=== PATIENT | male | born 1970 ===

== ENCOUNTER 2016-08-05 01:22 | Inpatient (IN) ==
--- NOTE | 2016-08-05 02:08 | Emergency Department Note ---
Monique Reyes Gwan, am scribing for, and in the presence of, Paco Low MD 01:54. Devante Reyes Robert M, MD, personally performed the services described in this documentation, ascribed by Lolis Amaya in my presence, and it is both accurate and complete . Arrival - Arrival Chief Complaint: Chest Pain Stated Complaint: Chest pain ED Nursing Triage Note: C/C transfer from [facility] ER for left sided chest pain, radiating into left shoulder. Pt was given GI Cocktail, ASA, Morphine, Tylenol. Pt has been pain free since meds were given. Pt denies chest pain at this time. Mode of Arrival: Stretcher Source: Patient, Old Records Reviewed Time Seen by Provider: 08/05/16 01:44 - History of Present Illness HPI Narrative: Patient is a 45 y/o [place] male who presents to the ED via EMS from [facility] ED for further evaluation of left sided chest pain with an onset tonight. Patient is alert and shows no signs of distress. With onset of sxs, pt described his pain as sharp and noted that the pain radiates to his back. He denies any pain when he breaths or with palpation. [facility] records and EMS confirmed that pt was given GI cocktail, ASA, Morphine and Tylenol [employer] F[employer] in ED. While in ED, pt stated that he is no longer in pain. Onset (ago): hour(s) Consistency: constant Severity: moderate Allergies/Adverse Reactions: Allergies Allergy/AdvReac Type Severity Reaction Status Date / Time No Known Allergies Allergy Verified 08/05/16 01:32 Home Medications: Home Medications Medication Instructions Recorded Confirmed Type Glimepiride [Amaryl] 4 mg PO DAILY 12/26/14 12/26/14 History Insulin Detemir [Levemir FlexPen] 25 syringe SUBCUT BEDTIME 12/26/14 12/26/14 History Saxagliptin HCl [Onglyza] 2.5 mg PO DAILY 12/26/14 12/26/14 History Chlorhexidine 4% Soln [Hibiclens] 1 applic TOP DAILY topical 12/30/14 Rx solution Ciprofloxacin Tab [Cipro Tab] 500 mg PO Q12HR #14 tablet 12/30/14 Rx Collagenase Oint [Santyl Oint] 1 applic TOP DAILY ointment 12/30/14 Rx HYDROcodone/ACETAMIN 10-325 [[place] 1 tablet PO Q4H PRN #30 tablet 12/30/14 Rx 10-325] Sodium Hypochlorite 0.25% Irr 1 applic TOP DAILY irrigation 12/30/14 Rx [Dakins 1/2 Strength 0.25% Soln] metroNIDAZOLE TAB [Flagyl Cap/Tab] 500 mg PO TID #20 tablet 12/30/14 Rx Review of System - Review of System 12 point system: reviewed and no additional remarkable complaints except as stated - Review of System Constitutional: Absent: chills, diaphoresis, fever Eyes: Absent: discharge, pain Head/Ears/Nose/Throat: Absent: earache Respiratory: Absent: cough Cardiovascular: Present: as per HPI, chest pain. Absent: palpitations Gastrointestinal: Absent: abdominal pain, nausea, vomiting, diarrhea Genitourinary male: Absent: urgency, dysuria, frequency Musculoskeletal: Absent: arm pain, back pain, lower back pain, leg pain Skin: Absent: rash Medical,Surgical,& Family Hx - Medical History Neurology: History of: Peripheral Neuropathy HEENT: History of: Eye Problem (cataract surgery bilateral) Endocrine: History of: Diabetes Mellitus (IDDM), Diabetes Mellitus (NIDDM), Dyslipidemia Respiratory: No history of: Obstructive Sleep Apnea Hematology: History of: Blood Disorders (chronic thrombocytopenia) Other: History of: Skin Problems (detailed man drained an abscess on his hip for lower abdomen sometime in ) - Surgical History Orthopedic Surgeries: Surgical HX of;: Orthopedic Surgery (hip abscess ), Total Knee Replacement (knee scope bilateral) - Family History Family History: Reports;: Family Cancer (grandmother-breast,), Family Diabetes ( DAD), Family Stroke (GRANDMOTHER, SISTER) Denies;: Family Heart Disease, Family Hypertension - Social History Smoking Status: Never smoker Frequency of Alcohol Use: None Type of Drug Use: None Exam Vital Signs: Vital Signs Temperature 97.7 F 08/05/16 01:22 Pulse Rate 80 08/05/16 01:22 Respiratory Rate 16 08/05/16 01:39 Blood Pressure 119/66 08/05/16 01:22 O2 Sat by Pulse Oximetry 99 08/05/16 01:22 - General General appearance: alert, in no apparent distress, obese - Head Head exam: Present: atraumatic, normocephalic - Eye Eye exam: Present: normal appearance, PERRL, EOMI - ENT ENT exam: Present: normal oropharynx, mucous membranes moist, TM's normal bilaterally, normal external ear exam - Neck Neck exam: Present: full ROM, trachea midline. Absent: tenderness, meningismus - Chest Chest inspection: Present: symmetric chest wall rise. Absent: tenderness - Respiratory Respiratory exam: Present: normal lung sounds bilaterally. Absent: respiratory distress - Cardiovascular Cardiovascular exam: Present: regular rate, normal rhythm, normal heart sounds. Absent: murmur, rubs, gallop - Abdominal Exam Abdominal exam: Present: soft, normal bowel sounds - Extremities Exam Extremities exam: Present: full ROM, tenderness. Absent: calf tenderness - Back Exam Back exam: Present: full ROM. Absent: tenderness - Neurological Exam Neurological exam: Present: alert, oriented X3, CN II-XII intact. Absent: motor sensory deficit - Psychiatric Psychiatric exam: Present: normal affect, normal mood - Skin Skin exam: Present: warm, dry, intact, normal color, other (patient was warm to touch) Course - Reevaluation(s) Reevaluation #1: Note is made that the patient's troponin slightly elevated since visit at [facility]. His pain has been completely controlled thus far. Time: 02:30 - Consultations Consultation #1: Dr. Acuna will admit the patient. Time: 02:31 Results - Labs Lab Results: I have reviewed the patients labs Labs: Total Creatine Kinase 217 U/L (39-308) 08/05/16 01:50 CK-MB (CK-2) 1.0 U/L (0.5-3.6) 08/05/16 01:50 Troponin I 0.046 NG/ML (0.00-0.045) H 08/05/16 01:50 Disposition Clinical Impression: Non-STEMI (non-ST elevated myocardial infarction), NIDDM Case discussed with: patient Disposition: Still a Patient Condition: Stable Time of Disposition: 02:32
[2016-08-05 02:23] LABS: Troponin I Only 0.046 NG/ML (0.00-0.045)
[2016-08-05] MEDS ORDERED: guaiFENesin/DM ER 600-30 MG TABLET PO PRN (02:32)
[2016-08-05] MEDS ORDERED: MAGNESIUM SULF RIDER 4 GM in PREMIX 1 EACH IV PRN (02:32)
[2016-08-05] MEDS ORDERED: DOCUSATE SODIUM 100 MG CAPSULE PO PRN (02:32)
[2016-08-05] MEDS ORDERED: MORPHINE 2 MG/1 ML SYRINGE IV PRN (02:32)
[2016-08-05] MEDS ORDERED: MAGNESIUM SULF RIDER 2 GM in PREMIX 1 EACH IV PRN (02:32)
[2016-08-05] MEDS ORDERED: ONDANSETRON 4 MG/2 ML VIAL IV PRN (02:32)
[2016-08-05] MEDS ORDERED: ZALEPLON 5 MG CAPSULE PO PRN (02:32)
[2016-08-05] MEDS ORDERED: DEXTROSE 50% 25 GM/50 ML VIAL IV PRN (02:34)
[2016-08-05] MEDS ORDERED: GLUCAGON 1 MG VIAL IM PRN (02:34)
[2016-08-05] MEDS ORDERED: SODIUM CHLORIDE 0.9% 1,000 ML IV SCH (03:00)
[2016-08-05] MEDS: ENOXAPARIN 100 MG/ML SYRINGE SUBCUT SCH ×2 (04:09→15:00)
[2016-08-05] MEDS: NITROGLYCERIN 2% OINT 1 INCH/GM PACK TOP SCH ×3 (06:16→17:57)
[2016-08-05 06:30] LABS: Troponin I Only 0.041 NG/ML (0.00-0.045)
[2016-08-05] MEDS: INSULIN LISPRO 100 UNIT/ML SUBCUT SCH ×3 (06:38→17:37)
--- NOTE | 2016-08-05 10:41 | EKG Report ---
Stationary ECG Study [facility] ER Test Date: 08/05/2016 1:31:29 AM Pat Name: TERRELL SANTILLAN Department: Room: 286 Gender: M Technical Sales Support Specialist: : 1970 Requested by: Paco Low Order Number: [id number] Marciano MD: MILLI GUILLAUME Intervals [place] Rate: 78 P: 179 PA: 177 QRS: 129 QRSD: 115 T: 121 QT: 381 QTc: 414 Interpretive Statements SINUS RHYTHM ARM LEADS REVERSED ATYPICAL ECG INTERPRETATION BASED ON A DEFAULT AGE OF 40 YEARS Electronically Signed On 08-05-16 16:32:12 CDT by MILLI GUILLAUME [email or web address]
--- NOTE | 2016-08-05 11:14 | EKG Report ---
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
--- NOTE | 2016-08-05 11:41 | Cardiology History & Physical ---
Assessment and Plan (1) Troponin level elevated Status: Acute Assessment and plan: Patient presents with an elevated troponin which is equivocal. He does have what appears to be a cellulitis of his right calf and obviously a concern would be that this is related to DVT. He also is complaining of some point tenderness in the left anterior chest which is not anginal and another concern would be that he is at risk for pulmonary thromboembolic disease. He is on full dose Lovenox anticoagulation. Current Visit: Yes (2) Diabetes mellitus Status: Acute Current Visit: No History of Present Illness History of present illness: Mr. Whiting is a 45 year old male who has a history of diabetes and has had problems with infections of his left foot. He says probably 4 days ago he began to notice some swelling of his right calf and today he is got increasing warmth and what appears to be a cellulitis versus a DVT of his right leg. We are going to work that up. He also complained of some chest discomfort which was not typical for angina. His troponins are elevated and we are going to get a look at that as well. His EKG is unrevealing and the concern obviously is that he has had a pulmonary embolus. He is fully anticoagulated on Lovenox intravenously at this point and we are going to review a ultrasound of the lower extremity and a CT scan of his chest. Home Medications Medication Instructions Recorded Confirmed Type Glimepiride [Amaryl] 4 mg PO DAILY 12/26/14 12/26/14 History Insulin Detemir [Levemir FlexPen] 25 syringe SUBCUT BEDTIME 12/26/14 12/26/14 History Saxagliptin HCl [Onglyza] 2.5 mg PO DAILY 12/26/14 12/26/14 History Chlorhexidine 4% Soln [Hibiclens] 1 applic TOP DAILY topical 12/30/14 Rx solution Ciprofloxacin Tab [Cipro Tab] 500 mg PO Q12HR #14 tablet 12/30/14 Rx Collagenase Oint [Santyl Oint] 1 applic TOP DAILY ointment 12/30/14 Rx HYDROcodone/ACETAMIN 10-325 [[place] 1 tablet PO Q4H PRN #30 tablet 12/30/14 Rx 10-325] Sodium Hypochlorite 0.25% Irr 1 applic TOP DAILY irrigation 12/30/14 Rx [Dakins 1/2 Strength 0.25% Soln] metroNIDAZOLE TAB [Flagyl Cap/Tab] 500 mg PO TID #20 tablet 12/30/14 Rx Allergies Allergy/AdvReac Type Severity Reaction Status Date / Time No Known Allergies Allergy Verified 08/05/16 01:32 Medical,Surgical,& Family Hx - Medical History Neurology: History of: Peripheral Neuropathy HEENT: History of: Eye Problem (cataract surgery bilateral) Endocrine: History of: Diabetes Mellitus (NIDDM), Dyslipidemia No history of: Diabetes Mellitus (IDDM) Respiratory: No history of: Obstructive Sleep Apnea Hematology: History of: Blood Disorders (chronic thrombocytopenia) Other: History of: Skin Problems (detailed man drained an abscess on his hip for lower abdomen sometime in ) - Surgical History Orthopedic Surgeries: Surgical HX of;: Orthopedic Surgery (hip abscess ), Total Knee Replacement (knee scope bilateral) - Family History Family History: Reports;: Family Cancer (grandmother-breast,), Family Diabetes ( DAD), Family Stroke (GRANDMOTHER, SISTER) Denies;: Family Heart Disease, Family Hypertension - Social History Smoking Status: Never smoker Frequency of Alcohol Use: None Type of Drug Use: None Cardiology Physical Exam - Constitutional Vitals: Vital Signs Temp Pulse Resp BP Pulse Ox 98.5 F 64 18 111/55 98 08/05/16 08:28 08/05/16 08:28 08/05/16 08:28 08/05/16 08:28 08/05/16 08:28 Intake and Output 08/04/16 08/05/16 08/05/16 23:59 07:59 15:59 Output Total 0 / 0 Balance 0 / 0 Output: Urine 0 / 0 Other: # Bowel Movements 0 Weight 124.965 kg Patient Weight 08/05/16 23:59 Weight 124.965 kg Exam: Physical examination: General: The patient is awake and alert and oriented -3. Mood and affect are normal. HEENT: Normocephalic, sclera are clear there are no lid xanthelasmas noted. Oral mucosa is free of cyanosis or pallor. Neck: The neck is supple without JVD. Carotid upstrokes are normal volume and amplitude. There is no audible bruit. There is no palpable thyroid. Trachea is midline. Chest: Lungs: The patient is comfortable at rest without intercostal retractions or abdominal breathing. There are no adventitial sounds rales rubs rhonchi or wheezes noted. Cardiovascular: The PMI is nondisplaced. No palpable thrill S3 or S4. There is a regular rate and rhythm with no murmur rub or gallop noted. Dorsalis pedis posterior tibial and femoral pulses are 2+ and equal bilaterally. Abdomen: Abdomen is soft and nontender with normal active bowel sounds. There is no palpable mass or organomegaly noted. There is no midline bruit. Extremities exam: There is marked discoloration of the right calf with what appears to be a cellulitis by my evaluation. Peripheral pulses are in the 0-1+ range the dorsalis pedis posterior tibial and 1+ the femorals bilaterally. There is no cyanosis or clubbing noted. Skin: Skin is warm and dry without ecchymosis or urticaria or skin rash. There are no palpable nodules. Musculoskeletal: There is no kyphosis or scoliosis noted. Result/EKG - Labs Labs: Laboratory Results - last 24 hr 08/05/16 08/05/16 04:51 06:19 POC Glucose 199 H Total Creatine Kinase 206 CK-MB (CK-2) 1.3 Troponin I 0.041
--- NOTE | 2016-08-05 12:19 | Ultrasound Report ---
US venous doppler LE RT Indication: Redness and swelling of the right lower extremity. Comparison: None. Technique: Using transcutaneous probe, color Doppler, spectral Doppler, and grayscale images prior to and following compression were obtained of the right lower extremity. Ultrasound images were captured and stored. Interrogated venous structures include the right common femoral vein, superficial femoral vein (proximal, mid, and distal), and popliteal vein. Findings: There is no evidence of thrombus within the interrogated right lower extremity venous structures. Spectral flow and color flow are present within the interrogated venous segments. Inguinal lymph nodes are noted within the right inguinal region. Significance of these lymph nodes is uncertain. These nodes are minimally enlarged and could reflect evidence of cellulitis. Impression: 1. No evidence of venous thrombosis. 2. Enlarged right inguinal lymph nodes could reflect reactive etiology provided redness of the leg. 08/05/2016 12:12 PM PROCEDURE INTERPRETED AT [facility] DEPARTMENT OF RADIOLOGY Final Report Signed by: Dr. Librado Low
[2016-08-05 12:49] LABS: Troponin I Only 0.031 NG/ML (0.00-0.045)
--- NOTE | 2016-08-05 12:54 | CT Report ---
CT chest PE study Indication: Chest pain. Shortness of breath. Comparison: None. Technique: CT of the chest was performed following the administration of intravenous contrast. In addition to multiple contiguous axial source images obtained from the thoracic inlet through the upper abdomen, coronal and sagittal MPR series were performed as were thin slab MIP reconstructions in the coronal and sagittal plane. The CT examination was performed using one or more of the following dose reduction techniques: Automatic exposure control, adjustment of the mA and kV according to patient size, or iterative reconstruction techniques. Findings: Suboptimal opacification of the pulmonary artery is present. The main pulmonary artery average is 201 Hounsfield units. There are no filling defects suggested to the level of the segmental branches. Subsegmental branches cannot be completely evaluated. Heart size is borderline. The aorta demonstrates normal 3 vessel arch anatomy. No adenopathy is noted within the axilla, rose, or mediastinum. The esophagus is unremarkable. Dependent atelectatic changes are noted bilaterally within the lower lobes. Lungs otherwise are clear. No pleural effusions or endobronchial lesions are demonstrated. The imaged portion of the upper abdomen, imaged bony structure, soft tissues and musculature of the chest wall, and visualized portion of the lower neck and thyroid are unremarkable. Impression: 1. Moderate dependent atelectatic changes are present bilaterally. 2. No filling defects are present within the pulmonary arteries to the level of the subsegmental branches. Subsegmental branches cannot be completely evaluated. 3. No specific etiology of chest pain is suggested. 08/05/2016 12:49 PM PROCEDURE INTERPRETED AT [facility] DEPARTMENT OF RADIOLOGY Final Report Signed by: Dr. Librado Low
[2016-08-05] MEDS: PANTOPRAZOLE 40 MG TABLET PO SCH (12:59)
[2016-08-05 13:46] LABS: Albumin 2.7 G/DL (3.4-5.0); Calcium 7.2 MG/DL (8.5-10.1); Osmolality,Calculated 298.3 MOS/KG (273-304); Risk Ratio 1.87; Total Protein 6.4 G/DL (6.4-8.3); VLDL CHOLESTEROL 16.4 MG/DL
[2016-08-05 13:55] LABS: Basophils % 0.2 % (0.0-0.8); Eosinophils # 0.4 10*3/uL (0.0-0.87); Eosinophils % 4.3 % (0.00-10.9); Hematocrit 26.9 VOL% (42.0-52.0); Hemoglobin 9.1 GM/DL (14.0-18.0); Immature Granulocytes % 0.4 %; Immature Granulocytes Absolute 0.03 #; Lymphocytes # 1.3 10*3/uL (1.4-4.0); Lymphocytes % 15.3 % (21.2-54.2); Mean Corpuscular HGB Conc 33.8 GM/DL (32-36); Mean Corpuscular Hemoglobin 29 PG (27-34); Mean Corpuscular Volume 86.5 FL (87-102); Mean Platelet Volume 14.3 FL (9.6-12.0); Monocytes # 0.6 10*3/uL (0.11-0.8); Monocytes % 7.4 % (1.7-12.7); Neutrophils # 6.2 10*3/uL (1.4-7.4); Neutrophils % 72.4 % (38.7-73.9); Red Blood Count 3.11 MC/CUMM (3.8-5.5); Red Cell Distribution Width 14.6 % (9.3-17.3); White Blood Count 8.6 T/CUMM (4-12)
[2016-08-05 13:57] LABS: Platelet Count 39 T/CUMM (130-400)
[2016-08-05 19:19] LABS: Troponin I Only 0.029 NG/ML (0.00-0.045)
[2016-08-06] MEDS: INSULIN LISPRO 100 UNIT/ML SUBCUT SCH ×4 (00:44→17:16)
[2016-08-06] MEDS: NITROGLYCERIN 2% OINT 1 INCH/GM PACK TOP SCH ×4 (00:45→17:17)
[2016-08-06 05:51] LABS: Blood Urea Nitrogen 37 MG/DL (7-18); Calcium 7.6 MG/DL (8.5-10.1); Glucose 130 MG/DL (74-106); Osmolality,Calculated 293.1 MOS/KG (273-304); Potassium 4.5 MMOL/L (3.5-5.1); Sodium 142 MMOL/L (136-145)
[2016-08-06] MEDS: PANTOPRAZOLE 40 MG TABLET PO SCH (08:40)
--- NOTE | 2016-08-06 08:57 | General Surgery Consult Note ---
Assessment and Plan (1) Cellulitis Status: Acute Assessment and plan: The patient has cellulitis of his right leg. There is no abscess. This should respond to antibiotics and elevation of the leg. Please call back with any further questions. I have ordered clindamycin and elevation of the leg. The patient can be transitioned to p.o. clindamycin prior to discharge. He should get a workup as an outpatient for venous insufficiency to evaluate his bowels for reflux but the management in the meantime should just be antibiotics and elevation. Please call back with any further questions or if he does not respond to this therapy. Current Visit: Yes History of Present Illness Chief complaint: Right leg swelling History of present illness: Mr. Whiting is a 45 year old male admitted with chest pain and found to have a warm swollen right lower extremity. The patient states that this is nontender. He is afebrile. His white blood cell count is normal. He has severe thrombocytopenia with platelet count yesterday of 39,000. His duplex ultrasound was negative for DVT. Home Medications Medication Instructions Recorded Confirmed Type Glimepiride [Amaryl] 4 mg PO DAILY 12/26/14 08/05/16 History Saxagliptin HCl [Onglyza] 2.5 mg PO DAILY 12/26/14 08/05/16 History Aspirin [Aspirin EC] 81 mg PO DAILY 08/05/16 08/05/16 History Simvastatin 20 mg PO BEDTIME 08/05/16 08/05/16 History Allergies Allergy/AdvReac Type Severity Reaction Status Date / Time No Known Allergies Allergy Verified 08/05/16 01:32 Medical,Surgical,& Family Hx - Medical History Neurology: History of: Peripheral Neuropathy HEENT: History of: Eye Problem (cataract surgery bilateral) Endocrine: History of: Diabetes Mellitus (NIDDM), Dyslipidemia No history of: Diabetes Mellitus (IDDM) Respiratory: No history of: Obstructive Sleep Apnea Hematology: History of: Blood Disorders (chronic thrombocytopenia) Other: History of: Skin Problems (detailed man drained an abscess on his hip for lower abdomen sometime in ) - Surgical History Orthopedic Surgeries: Surgical HX of;: Orthopedic Surgery (hip abscess ), Total Knee Replacement (knee scope bilateral) - Family History Family History: Reports;: Family Cancer (grandmother-breast,), Family Diabetes ( DAD), Family Stroke (GRANDMOTHER, SISTER) Denies;: Family Heart Disease, Family Hypertension - Social History Smoking Status: Never smoker Frequency of Alcohol Use: None Type of Drug Use: None - Constitutional Constitutional: Present: as per HPI - EENT Nose, mouth and throat: Present: as per HPI - Cardiovascular Cardiovascular: Present: as per HPI - Respiratory Respiratory: Present: as per HPI - Gastrointestinal Gastrointestinal: Present: as per HPI - Genitourinary Genitourinary: Present: as per HPI - Musculoskeletal Musculoskeletal: Present: as per HPI - Neurological Neurological: Present: as per HPI - Endocrine Endocrine: Present: as per HPI Hematologic/Lymphatic: Present: as per HPI Exam - Constitutional Vitals: Period Temp Pulse Resp BP Sys/[place] Pulse Ox Last 24 Hr 99.2 F-99.5 F 69-87 18-20 110-155/56-90 94-98 General appearance: no acute distress, morbidly obese - Head Head exam: Present: normal inspection, normocephalic - Eye Eye exam: Present: EOMI Pupils: Present: LONI - ENT ENT exam: Present: normal exam Mouth exam: Present: normal external inspection, normal voice - Neck Neck exam: Present: normal inspection, trachea midline - Respiratory Respiratory exam: Present: clear to auscultation bilaterally. Absent: accessory muscle use, chest wall tenderness - Cardiovascular Cardiovascular exam: Present: RRR. Absent: systolic murmur, tachycardia - GI/Abdominal GI/Abdominal exam: Present: soft. Absent: tenderness, rebound - Extremities Exam Extremities exam: Present: other (The patient has changes of chronic venous stasis in both lower extremities with hyperpigmentation of the medial side of his malleolus area on his ankles. His right leg a little bit more swollen and glossy and is warm to the touch. It was not elevated overnight.) - Back Exam Back exam: Present: normal inspection - Neurological Exam Neurological exam: Present: alert, oriented X3 Speech: Present: normal - Skin Skin exam: Present: normal color, warm Results - Labs CBC & BMP: 08/05/16 13:47 08/06/16 04:28
[2016-08-06] MEDS: CLINDAMYCIN INJ 600 MG in PREMIX 1 EACH IV SCH ×2 (09:16→17:08)
--- NOTE | 2016-08-06 09:36 | EKG Report ---
Stationary ECG Study [facility] Test Date: 08/05/2016 6:42:26 PM Pat Name: TERRELL SANTILLAN Department: Room: 286 Gender: M Gym Manager: HARJIT CULL GRADER : 1970 Requested by: Paco Low Order Number: [id number] Marciano MD: MILLI GUILLAUME Intervals [place] Rate: 85 P: 11 FL: 160 QRS: 68 QRSD: 113 T: 72 QT: 352 QTc: 394 Interpretive Statements SINUS RHYTHM MODERATE INTRAVENTRICULAR CONDUCTION DELAY Electronically Signed On 08-07-16 06:56:03 CDT by MILLI GUILLAUME [id number]
[2016-08-06 10:07] LABS: Basophils % 0.1 % (0.0-0.8); Eosinophils # 0.4 10*3/uL (0.0-0.87); Hematocrit 24.8 VOL% (42.0-52.0); Hemoglobin 8.1 GM/DL (14.0-18.0); Immature Granulocytes % 0.4 %; Immature Granulocytes Absolute 0.03 #; Lymphocytes # 1.1 10*3/uL (1.4-4.0); Lymphocytes % 13.9 % (21.2-54.2); Mean Corpuscular HGB Conc 32.7 GM/DL (32-36); Mean Corpuscular Hemoglobin 29 PG (27-34); Mean Corpuscular Volume 87.9 FL (87-102); Monocytes # 0.6 10*3/uL (0.11-0.8); Monocytes % 7.3 % (1.7-12.7); Neutrophils # 5.6 10*3/uL (1.4-7.4); Neutrophils % 73.3 % (38.7-73.9); Red Blood Count 2.82 MC/CUMM (3.8-5.5); Red Cell Distribution Width 14.3 % (9.3-17.3); White Blood Count 7.6 T/CUMM (4-12)
[2016-08-06 10:12] LABS: Platelet Count 36 T/CUMM (130-400)
[2016-08-06 10:18] LABS: Platelet Estimate Decreased
--- NOTE | 2016-08-06 11:16 | Cardiology Progress Note ---
Assessment and Plan (1) Troponin level elevated Status: Acute Assessment and plan: Patient presents with an elevated troponin which is equivocal. He does have what appears to be a cellulitis of his right calf and obviously a concern would be that this is related to DVT. He also is complaining of some point tenderness in the left anterior chest which is not anginal and another concern would be that he is at risk for pulmonary thromboembolic disease. He is on full dose Lovenox anticoagulation. Patient's troponin I think is not related to any cardiac event. He has a cellulitis and atypical chest pain will need screening once his cellulitis is cleared. Current Visit: Yes (2) Diabetes mellitus Status: Acute Current Visit: No (3) Thrombocytopenia Status: Acute Assessment and plan: This patient has thrombocytopenia and with a history of Lovenox to last the hematology specialty sales consultant to review Current Visit: Yes Cardiology - PN: Subj Interval history: This patient presented with a swelling of his right leg and atypical chest pain. He did not have evidence of DVT or evidence of a pulmonary embolus. His pain was atypical for angina. He is a bad diabetic and has had surgery on his left lower extremity now with cellulitis of his right lower extremity treated by the surgeons. He did have some decrease in his platelet count which is questionably related to the Lovenox and he was put on in the emergency room. This is been discontinued and his platelet count continues low and I am going to ask the embedded developer to review that. Exam (Progress Note) - Constitutional Vitals: Period Temp Pulse Resp BP Sys/De La Rosa Pulse Ox Last 24 Hr 99.2 F-99.5 F 69-87 18-20 110-155/56-90 94-98 Exam: General:no acute distress. alert and oriented, mood and affect are normal HEENT: no new lesions, sclerae are clear, mouth and pharynx benign Neck: supple, trachea midline, no JVD noted Lungs: no rales ronchi or wheeze is noted. pt comfortable without accesory muscle use to assist with breathing CV: RRR no murmur rub or gallop is noted. Abd: soft and nontender, BSNA, no masses. Ext: no cyanosis, clubbing or edema. Swelling and tenderness of the right lower extremity at the calf. There is some skin discoloration but no discrete abscess is noted. Neuro: grossly intact without focal neurologic deficit. Result/EKG - Labs CBC & BMP: 08/06/16 09:40 08/06/16 04:28 Labs: Laboratory Results - last 24 hr 08/05/16 08/05/16 08/05/16 04:50 11:15 11:26 WBC RBC Hgb Hct MCV MCH MCHC RDW Plt Count MPV Neut % (Auto) Lymph % (Auto) [place] % (Auto) Eos % (Auto) Baso % (Auto) Neut # (Auto) Lymph # (Auto) [place] # (Auto) Eos # (Auto) Baso # (Auto) Immature Gran % Nucleated RBC % Immature Gran # Nucleated RBCs # Platelet Estimate Morphology Comment D-Dimer, Quantitative Sodium 141 Potassium 4.0 Chloride 111 H Carbon Dioxide 18 L Anion Gap 16.0 H BUN 46 H Creatinine 2.60 H GFR Calculation 39 BUN/Creatinine Ratio 17.00 Glucose 208 H POC Glucose 121 H Calculated Osmolality 298.3 Calcium 7.2 L Magnesium Total Bilirubin 1.00 AST 24 ALT 26 Alkaline Phosphatase 149 H Total Creatine Kinase 169 CK-MB (CK-2) 1.6 Troponin I 0.031 Total Protein 6.4 Albumin 2.7 L Globulin 3.7 H Albumin/Globulin Ratio 0.7 L Triglycerides 82 Cholesterol 86 LDL Cholesterol 34.0 VLDL Cholesterol 16.4 HDL Cholesterol 46 Heart Disease Risk Ratio 1.87 08/05/16 08/05/16 08/05/16 13:46 13:47 16:25 WBC 8.6 RBC 3.11 L Hgb 9.1 L Hct 26.9 L MCV 86.5 L MCH 29 MCHC 33.8 RDW 14.6 Plt Count 39 L* MPV 14.3 H Neut % (Auto) 72.4 Lymph % (Auto) 15.3 L [place] % (Auto) 7.4 Eos % (Auto) 4.3 Baso % (Auto) 0.2 Neut # (Auto) 6.2 Lymph # (Auto) 1.3 L [place] # (Auto) 0.6 Eos # (Auto) 0.4 Baso # (Auto) 0.0 Immature Gran % 0.4 Nucleated RBC % 0.0 Immature Gran # 0.03 Nucleated RBCs # 0.00 Platelet Estimate Morphology Comment D-Dimer, Quantitative 1.1 Sodium Potassium Chloride Carbon Dioxide Anion Gap BUN Creatinine GFR Calculation BUN/Creatinine Ratio Glucose POC Glucose 133 H Calculated Osmolality Calcium Magnesium Total Bilirubin AST ALT Alkaline Phosphatase Total Creatine Kinase CK-MB (CK-2) Troponin I Total Protein Albumin Globulin Albumin/Globulin Ratio Triglycerides Cholesterol LDL Cholesterol VLDL Cholesterol HDL Cholesterol Heart Disease Risk Ratio 08/05/16 08/06/16 08/06/16 18:34 00:13 04:28 WBC RBC Hgb Hct MCV MCH MCHC RDW Plt Count MPV Neut % (Auto) Lymph % (Auto) [place] % (Auto) Eos % (Auto) Baso % (Auto) Neut # (Auto) Lymph # (Auto) [place] # (Auto) Eos # (Auto) Baso # (Auto) Immature Gran % Nucleated RBC % Immature Gran # Nucleated RBCs # Platelet Estimate Morphology Comment D-Dimer, Quantitative Sodium 142 Potassium 4.5 Chloride 114 H Carbon Dioxide 21 Anion Gap 11.5 BUN 37 H Creatinine 1.60 H GFR Calculation 69 BUN/Creatinine Ratio 23.00 H Glucose 130 H POC Glucose 167 H Calculated Osmolality 293.1 Calcium 7.6 L Magnesium 2.0 Total Bilirubin AST ALT Alkaline Phosphatase Total Creatine Kinase 164 116 D CK-MB (CK-2) 1.7 < 1.0 Troponin I 0.029 0.040 Total Protein Albumin Globulin Albumin/Globulin Ratio Triglycerides Cholesterol LDL Cholesterol VLDL Cholesterol HDL Cholesterol Heart Disease Risk Ratio 08/06/16 08/06/16 06:11 09:40 WBC 7.6 RBC 2.82 L Hgb 8.1 L Hct 24.8 L MCV 87.9 MCH 29 MCHC 32.7 RDW 14.3 Plt Count 36 L* MPV Neut % (Auto) 73.3 Lymph % (Auto) 13.9 L [place] % (Auto) 7.3 Eos % (Auto) 5.0 Baso % (Auto) 0.1 Neut # (Auto) 5.6 Lymph # (Auto) 1.1 L [place] # (Auto) 0.6 Eos # (Auto) 0.4 Baso # (Auto) 0.0 Immature Gran % 0.4 Nucleated RBC % 0.0 Immature Gran # 0.03 Nucleated RBCs # 0.00 Platelet Estimate Decreased Morphology Comment D-Dimer, Quantitative Sodium Potassium Chloride Carbon Dioxide Anion Gap BUN Creatinine GFR Calculation BUN/Creatinine Ratio Glucose POC Glucose 142 H Calculated Osmolality Calcium Magnesium Total Bilirubin AST ALT Alkaline Phosphatase Total Creatine Kinase CK-MB (CK-2) Troponin I Total Protein Albumin Globulin Albumin/Globulin Ratio Triglycerides Cholesterol LDL Cholesterol VLDL Cholesterol HDL Cholesterol Heart Disease Risk Ratio
--- NOTE | 2016-08-06 15:14 | Oncology Consult Note ---
History of Present Illness Chief complaint: Thrombocytopenia History of present illness: Mr. Whiting is a 45 year old male This patient has a long history of pancytopenia. He tells me that he was evaluated here several years ago, possibly over 10 years ago for low blood counts. In addition, he tells me that he is now being followed at [facility] in [place] for low blood counts. He does not remember the physician's name and he missed the last appointment. He relates that he has been told that he had stable moderately low blood counts and that as long as they did not change, according to his doctors at [facility], he would just need to be followed. In addition, he evidently has a paper chart here if we can obtain it. I note that on December 28, 2014, the patient had a white cell count 5600 with a hemoglobin of 10.2 and a platelet count at that time of 46,000 with a high mean platelet volume. On August 05, 2016 the patient had a platelet count of 39,000 and his mean platelet volume is 14.3 which is significantly elevated. This is a good thing since it is the total platelet volume that determines bleeding risk as much as the actual number of platelets that the patient has a circulation. 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 I am requesting that the be retrieved on him here I am also requesting records from [facility] as well. He was admitted for chest pain that is atypical for coronary artery disease. He has been noted to have abnormalities of his legs that are suggestive of DVT. He was started on Lovenox initially in the emergency room but it has been stopped. Past medical history: Allergies: No known allergies He is a sketchy historian. He tells me that he has undergone bronchoscopy at [facility] in [place] but I am not sure why. He has a history of diabetes mellitus. He is currently on insulin as treatment for his diabetes but does not list any other home medications. Family history is negative for blood dyscrasias or bleeding disorders or low blood counts as far as he is aware. Social history: He tells me that he drank at one time but no longer drinks alcohol. He also gives me a remote history of cigarette smoking. Review of systems is of questionable significance because he does not remember many of the details. This includes an apparent workup relatively recently, a couple of years ago that involved pulmonary workup. His review of systems is positive for peripheral neuropathy as well as cataracts for which she has had surgery and also positive for obstructive sleep apnea. In addition he has a history of an abscess of the lower abdomen or pelvis, apparently the hip. He also has had bilateral total knee replacements. Physical examination: General: The patient appears somewhat chronically ill but is in no acute distress. Eyes: Bilateral cataract surgery. Normal lids and conjunctivae. ENT: Poor dentition. Oral mucosa and pharynx are normal. Hearing is normal. Neck: No masses. Thyroid is normal. Lungs: The chest moves symmetrically with respiration. I hear no rubs, rales or rhonchi. Cardiovascular: I cannot appreciate any murmurs. His heart rhythm is regular without gallop or rub. There is no jugular venous distention. Abdomen: There are no abdominal masses or organomegaly and no distention or ascites. Musculoskeletal: Cursory examination reveals bilateral knee surgery but I find no other focal muscle atrophy or bone or joint deformity. Neurologic: Cranial nerves II through XII are intact. There are no focal neurologic deficits although the patient does have evidence of peripheral neuropathy which he points out to me. Nodes: I palpate no submandibular, cervical, supraclavicular or axillary adenopathy. Impression: I am suspicious that this patient's thrombocytopenia is very long-term and it may have an immune component to it. I am checking a few tests to reassess this but he has probably had a thorough evaluation on multiple occasions at [facility], where he supposed to have returned for follow-up. I have requested records from [facility] injection as well as the old paper chart from here. He does not appear to be actively bleeding so I think we can follow his blood counts presently. If therapeutic measures need to be instituted I would really like to know what he is already received in an effort to raise his platelet count. The one part of his history is Kadeem fairly secure about is the fact that he has been told that he is blood counts include chronic cytopenia of some type and that intervention is far as the physicians at [facility] are concerned is not necessary presently. We will see if we can get the old records. I will follow him with you. Thank you. Home Medications Medication Instructions Recorded Confirmed Type Glimepiride [Amaryl] 4 mg PO DAILY 10/10/15 05/20/17 History Saxagliptin HCl [Onglyza] 2.5 mg PO DAILY 12/26/14 08/05/16 History Aspirin [Aspirin EC] 81 mg PO DAILY 08/05/16 08/05/16 History Simvastatin 20 mg PO BEDTIME 08/05/16 08/05/16 History Allergies Allergy/AdvReac Type Severity Reaction Status Date / Time No Known Allergies Allergy Verified 08/05/16 01:32 Medical,Surgical,& Family Hx - Medical History Neurology: History of: Peripheral Neuropathy HEENT: History of: Eye Problem (cataract surgery bilateral) Endocrine: History of: Diabetes Mellitus (NIDDM), Dyslipidemia No history of: Diabetes Mellitus (IDDM) Respiratory: No history of: Obstructive Sleep Apnea Hematology: History of: Blood Disorders (chronic thrombocytopenia) Other: History of: Skin Problems (detailed man drained an abscess on his hip for lower abdomen sometime in ) - Surgical History Orthopedic Surgeries: Surgical HX of;: Orthopedic Surgery (hip abscess ), Total Knee Replacement (knee scope bilateral) - Family History Family History: Reports;: Family Cancer (grandmother-breast,), Family Diabetes ( DAD), Family Stroke (GRANDMOTHER, SISTER) Denies;: Family Heart Disease, Family Hypertension - Social History Smoking Status: Never smoker Frequency of Alcohol Use: None Type of Drug Use: None Exam - Constitutional Vitals: Period Temp Pulse Resp BP Sys/De [place] Rosa Pulse Ox Last 24 Hr 99.2 F-99.5 F 76-87 18-20 132-155/73-90 94-97 Results - Labs CBC & BMP: 08/06/16 09:40 08/06/16 04:28
[2016-08-07] MEDS: CLINDAMYCIN INJ 600 MG in PREMIX 1 EACH IV SCH ×2 (00:44→08:42)
[2016-08-07] MEDS: NITROGLYCERIN 2% OINT 1 INCH/GM PACK TOP SCH ×3 (00:45→12:38)
[2016-08-07] MEDS: INSULIN LISPRO 100 UNIT/ML SUBCUT SCH ×3 (00:45→12:38)
[2016-08-07 06:06] LABS: Magnesium 1.8 MG/DL (1.8-2.4); Osmolality,Calculated 289.1 MOS/KG (273-304); Potassium 4.4 MMOL/L (3.5-5.1)
--- NOTE | 2016-08-07 07:40 | Oncology Progress Note ---
Oncology Subjective PN Interval history: Mr. 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 He tells me that he is been informed by his leather belt loop cutter that he does not need treatment for the low platelet count presently. This is suggested by the patient's CBC. His platelet count is low but his mean platelet volume is high. His MPV was not reported yesterday but he was reported on the CBC drawn yesterday to have large platelets. I am going to recheck a CBC today. I had thought I ordered it yesterday. I requested that the patient's paper chart from here be obtained and I have also requested records from [facility]. He is still having no problems with bleeding. His oral mucosa is normal. His nasal mucosa is normal as well. He does not report any type of active bleeding including GI and . He probably would be okay to be discharged whenever you complete workup. In addition, for continuity of care, he probably needs to stick with one leather belt loop cutter. I am comfortable with him going to [place] this if that is what he wishes but I would really like to see the records from this facility that her own paper as well as records from [place] so I can identify his treating leather belt loop cutter over there at [facility]. Exam - Constitutional Vitals: Period Temp Pulse Resp BP Sys/De [place] Rosa Pulse Ox Last 24 Hr 98.7 F-99.4 F 76-83 16-20 138-152/72-84 92-98 Results - Labs CBC & BMP: 08/06/16 09:40 08/07/16 04:25
[2016-08-07 08:15] LABS: Basophils % 0.3 % (0.0-0.8); Eosinophils # 0.5 10*3/uL (0.0-0.87); Eosinophils % 7.5 % (0.00-10.9); Hematocrit 25.2 VOL% (42.0-52.0); Hemoglobin 8.4 GM/DL (14.0-18.0); Immature Granulocytes % 0.5 %; Immature Granulocytes Absolute 0.03 #; Lymphocytes # 1.2 10*3/uL (1.4-4.0); Lymphocytes % 18.8 % (21.2-54.2); Mean Corpuscular HGB Conc 33.3 GM/DL (32-36); Mean Corpuscular Hemoglobin 29 PG (27-34); Mean Platelet Volume 13.4 FL (9.6-12.0); Monocytes # 0.4 10*3/uL (0.11-0.8); Monocytes % 6.3 % (1.7-12.7); Neutrophils # 4.2 10*3/uL (1.4-7.4); Neutrophils % 66.6 % (38.7-73.9); Red Blood Count 2.93 MC/CUMM (3.8-5.5); Red Cell Distribution Width 13.9 % (9.3-17.3); White Blood Count 6.4 T/CUMM (4-12)
[2016-08-07 08:26] LABS: Platelet Count 46 T/CUMM (130-400)
[2016-08-07] MEDS: PANTOPRAZOLE 40 MG TABLET PO SCH (08:42)
[2016-08-07 08:46] LABS: Albumin 2.6 G/DL (3.4-5.0); Bilirubin,Total 0.8 MG/DL (0.2-1.0); Calcium 7.7 MG/DL (8.5-10.1); Potassium 4.4 MMOL/L (3.5-5.1); Total Protein 6.6 G/DL (6.4-8.3)
[2016-08-07 09:39] LABS: Hypochromasia 1+; Microcytosis 1+
[2016-08-07 13:11] VITALS: BP 159/85
--- NOTE | 2016-08-07 16:21 | Discharge Summary ---
Oli Reyes April, RN, am scribing for, and in the presence of, Darin Tay MD 16 :20. Hospital Course - Hospital Course Hospital Course: Mr. Whiting is a 45-year-old male has a history of thrombocytopenia and pancytopenia (for which he is followed by at [facility] in [place]), diabetes and infections of his left foot. Approximately 4 days prior to admission he began to notice swelling of his right calf and on the day of admission it got increasingly warm. He also complained of some chest discomfort that was atypical for angina. He was admitted to cardiology service to work this up. Venous Doppler was negative for DVT. He was started on IV clindamycin to treat cellulitis of his right calf. CT of the chest was done that did not show any evidence of pulmonary embolus. Troponin was was borderline on admission at 0.046, all other troponin checks dropped down to within normal range. His atypical chest pain will need screening once his cellulitis has been cleared. Dr. Arreola saw patient in consultation for thrombocytopenia that he can be discharged, he needs to follow-up with mortician helper in [place]. Dr. Sarah saw regarding cellulitis of the right leg. He started IV clindamycin which he said can be changed to p.o. at discharge. Today Mr. Whiting is resting in bed in no acute distress. He reports he has not had any chest pain since admission. He denies any shortness of breath, palpitations, or dizziness. Vital signs have been stable. He is felt to have met maximum medical therapy and will be discharged home. -He will be discharged on his home meds as well as addition of clindamycin 500 mg p.o. 3 times daily 7 days. -He will follow up with Dr. Acuna in 1 week with a BMP/Mg check. Had mild HÉCTOR on admission, resolved. If renal function remains stable, adding an ACEI may be an option. - Time spent with patient Time with patient DS: Greater than 30 minutes Diagnosis - Discharge Diagnosis (1) Cellulitis Status: Acute (2) Thrombocytopenia Status: Chronic (3) Troponin level elevated Status: Resolved Specialty Discharge - Follow Up or Referrals Follow up with: Gary Acuna MD [Physician] - 1 Week (With a BMP and magnesium) Discharge Plan - Discharge Data Disposition: Disch To Home/Self Care Condition at Discharge: Stable Discharge Diet: heart healthy Activity: resume usual activities as tolerated Hygiene: no restrictions Weight Bearing at Discharge: full weight bearing Driving: no restrictions Contact your physician if you experience:: fever over 101, Difficulty voiding, Redness or swelling, Nausea/Vomiting, Shortness of breath, Bleeding, pain uncontrolled by pain medications - Discharge Medications New Clindamycin Cap [Cleocin Cap] 600 mg PO Q8HR #42 capsule Continue Saxagliptin HCl [Onglyza] 2.5 mg PO DAILY Glimepiride [Amaryl] 4 mg PO DAILY Aspirin [Aspirin EC] 81 mg PO DAILY Simvastatin 20 mg PO BEDTIME - Follow Up or Referral Follow Up: Gary Acuna MD [Physician] - 1 Week (With a BMP and magnesium) - Forms/Instructions Instructions: Cellulitis (DC), Thrombocytopenia (DC) Exam - Constitutional Vitals: Period Temp Pulse Resp BP Sys/De [place] Rosa Pulse Ox Last 24 Hr 98.4 F-98.9 F 73-83 16-20 133-159/71-85 92-98 General appearance: no acute distress, over weight - Head Head exam: Absent: abrasion, hematoma - Eye Eye exam: Absent: periorbital swelling, laceration to eyelids - Neck Neck exam: Absent: tenderness - Respiratory Respiratory exam: Present: clear to auscultation bilaterally. Absent: accessory muscle use, chest wall tenderness - Cardiovascular Cardiovascular exam: Present: regular rate and rhythm. Absent: diastolic murmur , systolic murmur - GI/Abdominal GI/Abdominal exam: Present: normal bowel sounds, soft. Absent: distended, tenderness - Extremities Exam Extremities exam: Present: other (Right calf discoloration and tenderness) - Neurological Exam Neurological exam: Present: alert, oriented X3 - Psychiatric Psychiatric exam: Present: normal affect, normal mood - Skin Skin exam: Present: warm, dry Discharge Results Procedures and tests throughout hospitalization: Pending Orders 08/08/16 04:00 BMP w/ Mg [Basic Metabolic Panel w/Mg] IN AM Labs on day of discharge: Labs from last 24 hours 08/07/16 08/07/16 08/07/16 08:01 07:58 07:58 WBC 6.4 RBC 2.93 L Hgb 8.4 L Hct 25.2 L MCV 86.0 L MCH 29 MCHC 33.3 RDW 13.9 Plt Count 46 L D MPV 13.4 H Neut % (Auto) 66.6 Lymph % (Auto) 18.8 L [place] % (Auto) 6.3 Eos % (Auto) 7.5 Baso % (Auto) 0.3 Neut # (Auto) 4.2 Lymph # (Auto) 1.2 L [place] # (Auto) 0.4 Eos # (Auto) 0.5 Baso # (Auto) 0.0 Immature Gran % 0.5 Nucleated RBC % 0.0 Immature Gran # 0.03 Nucleated RBCs # 0.00 Hypochromasia 1+ Microcytosis 1+ Sodium 143 Potassium 4.4 Chloride 113 H Carbon Dioxide 23 Anion Gap 11.4 BUN 28 H Creatinine 1.40 H GFR Calculation 81 BUN/Creatinine Ratio 20.00 Glucose 122 H POC Glucose 125 H Calculated Osmolality 291.0 Calcium 7.7 L Magnesium Total Bilirubin 0.80 AST 19 ALT 26 Alkaline Phosphatase 206 H Lactate Dehydrogenase 170 Total Protein 6.6 Albumin 2.6 L Globulin 4.0 H Albumin/Globulin Ratio 0.6 L 08/07/16 08/07/16 08/07/16 05:50 04:25 00:04 WBC RBC Hgb Hct MCV MCH MCHC RDW Plt Count MPV Neut % (Auto) Lymph % (Auto) [place] % (Auto) Eos % (Auto) Baso % (Auto) Neut # (Auto) Lymph # (Auto) [place] # (Auto) Eos # (Auto) Baso # (Auto) Immature Gran % Nucleated RBC % Immature Gran # Nucleated RBCs # Hypochromasia Microcytosis Sodium 142 Potassium 4.4 Chloride 114 H Carbon Dioxide 20 L Anion Gap 12.4 BUN 28 H Creatinine 1.40 H GFR Calculation 81 BUN/Creatinine Ratio 20.00 Glucose 114 H POC Glucose 120 H 155 H Calculated Osmolality 289.1 Calcium 8.0 L Magnesium 1.8 Total Bilirubin AST ALT Alkaline Phosphatase Lactate Dehydrogenase Total Protein Albumin Globulin Albumin/Globulin Ratio 08/06/16 16:04 WBC RBC Hgb Hct MCV MCH MCHC RDW Plt Count MPV Neut % (Auto) Lymph % (Auto) [place] % (Auto) Eos % (Auto) Baso % (Auto) Neut # (Auto) Lymph # (Auto) [place] # (Auto) Eos # (Auto) Baso # (Auto) Immature Gran % Nucleated RBC % Immature Gran # Nucleated RBCs # Hypochromasia Microcytosis Sodium Potassium Chloride Carbon Dioxide Anion Gap BUN Creatinine GFR Calculation BUN/Creatinine Ratio Glucose POC Glucose 154 H Calculated Osmolality Calcium Magnesium Total Bilirubin AST ALT Alkaline Phosphatase Lactate Dehydrogenase Total Protein Albumin Globulin Albumin/Globulin Ratio - Imaging and Cardiology Cardiology Procedure: image reviewed by me, report reviewed by me Procedure: CT - chest: report reviewed by me DS: Provider Consults: 08/05/16 13:15 Consult to Physician [CONS] Routine Comment: Redness and swelling to right leg Consulting Provider: Juan Sarah Person Notified: Date Notified: 08/05/16 Time Notified: 13:30 Consult Notification Comment: States he will see patient on 08/0608/06/16 10:27 Consult to Physician [CONS] Routine Comment: Low platelet count Consulting Provider: Zhao Arreola Person Notified: Date Notified: 08/06/16 Time Notified: 10:36 Expected date of discharge: 08/07/16 Maggi Reyes Attila, MD, personally performed the services described in this documentation, ascribed by Lizzeth Baird RN in my presence, and it is both accurate and complete 620 .
[2016-08-07] MEDS ORDERED: CLINDAMYCIN 300 MG CAPSULE PO SCH (22:00)
== END 2016-08-07 17:04 | disposition home or self-care (01) | DRG 603 ==
LOC: EDUNIT# → EDBD → N.ED 01:22 → N.EDINP 02:32 → N.TELEN 02:55
PROVIDERS: ADMIT Internal Medicine Interventional Cardiology; ATTEND Internal Medicine Interventional Cardiology

== ENCOUNTER 2016-10-13 22:41 | Inpatient (IN) ==
--- NOTE | 2016-10-13 23:20 | Emergency Department Note ---
Arrival - Arrival Chief Complaint: Shortness of Breath Stated Complaint: Chest X-ray ED Nursing Triage Note: Pt ambulatory from triage, transfers [facility] with c/o SOB that started about a week ago. Pt is need VQ Lung scan,and ext doppler. Mode of Arrival: Ambulatory Limitations: No Limitations Source: Patient Time Seen by Provider: 10/13/16 23:12 - History of Present Illness HPI Narrative: This 45-year-old male presents on transfer from [place] for evaluation of elevated d-dimer in association with shortness of breath and right lower extremity leg pain and swelling. The patient states that for the past 2 weeks he has had insidious onset of shortness of breath with exertion on his job and in the last couple days has had some precordial chest pain. Notable at [place] in his workup was a normal EKG, negative enzymes, evidence of chronic renal failure, and normal chest x-ray. Although he had a severely elevated d-dimer, with his renal function CTA was not an alternative and he was transferred here for evaluation of the right leg via doppler and workup for pulmonary embolus. Currently he does not feel short of breath or experience any chest pain although he still has persistent right leg pain. Of note this individual was admitted in July with almost identical history and treated for cellulitis of the right calf with a CT of the chest at that time showing no pulmonary embolus. He likewise did not demonstrate any DVT on right lower extremity evaluation. Onset (ago): week(s) (Patient presents 2 weeks post onset of symptoms) Allergies/Adverse Reactions: Allergies Allergy/AdvReac Type Severity Reaction Status Date / Time No Known Allergies Allergy Verified 10/13/16 22:58 Home Medications: Home Medications Medication Instructions Recorded Confirmed Type Glimepiride [Amaryl] 4 mg PO DAILY 12/26/14 08/05/16 History Saxagliptin HCl [Onglyza] 2.5 mg PO DAILY 12/26/14 08/05/16 History Aspirin [Aspirin EC] 81 mg PO DAILY 08/05/16 08/05/16 History Simvastatin 20 mg PO BEDTIME 08/05/16 08/05/16 History Review of System - Review of System 12 point system: reviewed and no additional remarkable complaints except as stated - Review of System Constitutional: Present: as per HPI Respiratory: Present: as per HPI Cardiovascular: Present: as per HPI Musculoskeletal: Present: as per HPI Medical,Surgical,& Family Hx - Medical History Neurology: History of: Peripheral Neuropathy HEENT: History of: Eye Problem (cataract surgery bilateral) Endocrine: No history of: Diabetes Mellitus (IDDM) Respiratory: No history of: Obstructive Sleep Apnea Renal: History of: Renal Problems Hematology: History of: Blood Disorders (chronic thrombocytopenia) Other: History of: Skin Problems (detailed man drained an abscess on his hip for lower abdomen sometime in ) - Surgical History Orthopedic Surgeries: Surgical HX of;: Orthopedic Surgery (hip abscess ), Total Knee Replacement (knee scope bilateral) - Family History Family History: Reports;: Family Cancer (grandmother-breast,), Family Diabetes ( DAD), Family Stroke (GRANDMOTHER, SISTER) Denies;: Family Heart Disease, Family Hypertension - Social History Smoking Status: Never smoker Frequency of Alcohol Use: None Type of Drug Use: None Exam Physical Examination: GENERAL: Obese male in no acute distress. HEENT: Normocephalic. No trauma. Moist mucous membranes. EOMI. PERRLA. ENT NML NECK: Supple. No adenopathy. CARDIAC: Regular. No murmurs. Heart rate 78 CHEST: Clear to auscultation. No respiratory distress. O2 sat 96% ABDOMEN: Soft. Nontender. Active bowel sounds. EXTREMITIES: No trauma. Normal ROM. No pedal edema. Mildly swollen right lower extremity with negative Homans and minimal right calf tenderness SKIN: No diaphoresis. No rash. NEURO: Alert. Neuro intact no focal deficits. Vital Signs: Vital Signs Temperature 97.8 F 10/13/16 22:53 Pulse Rate 78 10/13/16 23:00 Respiratory Rate 18 10/13/16 23:00 Blood Pressure 109/65 10/13/16 23:00 O2 Sat by Pulse Oximetry 96 10/13/16 22:53 Course - Reevaluation(s) Reevaluation #1: Advised patient of need for hospitalization to further evaluate for pulmonary embolus and renal function. - Consultations Consultation #1: Discussed with hospitalist who will admit for further evaluation treatment peer Results - Labs CBC & BMP: 10/13/16 23:28 Labs: Lab per Ch[facility]ell revealed white count 9100, hematocrit 27, cardiacs negative, creatinine 3.0, BUN 57, sodium 139, potassium 4.4, d-dimer greater than 5000, and BMP for 24. I have noted the persistent elevation of d-dimer at our institution at 6.3. - Impressions EKG per truck, normal - Diagnostic Findings Procedure: Chest x-ray: image reviewed by me, report reviewed by me (Per Chantell normal), Ultrasound: image reviewed by me, report reviewed by me (Right lower extremity: Negative study) Disposition Clinical Impression: Renal insufficiency, Chronic right lower extremity pain, Abnormal d-dimer, History of thrombocytopenia and anemia Case discussed with: patient, patient's family Disposition: Still a Patient Condition: Guarded Time of Disposition: 00:20
[2016-10-13 23:42] LABS: Basophils % 0.6 % (0.0-0.8); Eosinophils # 0.8 10*3/uL (0.0-0.87); Eosinophils % 10.5 % (0.00-10.9); Hematocrit 26.8 VOL% (42.0-52.0); Hemoglobin 8.8 GM/DL (14.0-18.0); Immature Granulocytes % 1.5 %; Immature Granulocytes Absolute 0.11 #; Lymphocytes # 1.8 10*3/uL (1.4-4.0); Lymphocytes % 25.3 % (21.2-54.2); Mean Corpuscular HGB Conc 32.8 GM/DL (32-36); Mean Corpuscular Hemoglobin 28 PG (27-34); Mean Corpuscular Volume 85.9 FL (87-102); Mean Platelet Volume 14.4 FL (9.6-12.0); Monocytes # 0.6 10*3/uL (0.11-0.8); Monocytes % 8.2 % (1.7-12.7); Neutrophils # 3.9 10*3/uL (1.4-7.4); Neutrophils % 53.9 % (38.7-73.9); Red Blood Count 3.12 MC/CUMM (3.8-5.5); Red Cell Distribution Width 14.1 % (9.3-17.3); White Blood Count 7.2 T/CUMM (4-12)
[2016-10-13 23:44] LABS: Platelet Count 78 T/CUMM (130-400)
[2016-10-13 23:54] LABS: INR 1.1; PT Patient Result 11.4 SECS
[2016-10-14 00:02] LABS: D-Dimer 6.3 MG/L FEU
[2016-10-14 00:11] LABS: Osmolality,Calculated 296.1 MOS/KG (273-304); Potassium 4.7 MMOL/L (3.5-5.1)
[2016-10-14 00:26] LABS: Eosinophils 9 % (0-10); Lymphocytes 18 % (20-55); Myelocytes 1 %; Segmented Neutrophils 65 % (50-85)
[2016-10-14 00:28] LABS: Platelet Estimate Decreased; Total Cells Counted 100
[2016-10-14] MEDS ORDERED: ZALEPLON 5 MG CAPSULE PO PRN (00:51)
[2016-10-14] MEDS ORDERED: GLUCAGON 1 MG VIAL IM PRN (00:58)
[2016-10-14] MEDS ORDERED: DEXTROSE 50% 25 GM/50 ML SYRINGE IV PRN (00:58)
--- NOTE | 2016-10-14 01:04 | Hospitalist History & Physical ---
Assessment and Plan (1) Dyspnea Status: Acute Assessment and plan: Dyspnea on exertion not sure what the etiology but definitely need to rule out pulmonary embolism. Due to his acute kidney injury unable to do CT with PE protocol. I will order VQ scan and started heparin infusion. I will order echocardiogram also Current Visit: Yes (2) Acute renal failure Status: Acute Assessment and plan: Probably prerenal with the hypotension. I will start an IV fluid and get urinalysis and renal ultrasound. Renal service consulted to see patient in the morning Current Visit: No (3) Chronic idiopathic thrombocytopenia Status: Chronic Assessment and plan: Platelet counts in fact better than previous admission Current Visit: No (4) Diabetes mellitus Status: Chronic Assessment and plan: We will follow blood sugar with the as needed short-acting insulin. I will hold his home hypoglycemic therapy at present due to acute kidney injury with the risk of hypoglycemia Current Visit: No (5) Anemia Status: Chronic Assessment and plan: Hemoglobin hematocrit stable from previous admission Current Visit: No History of Present Illness Chief complaint: Dyspnea History of present illness: Mr. Whiting is a 45 year old male with history of diabetes mellitus and thrombocytopenia. He was transferred from [facility]. He presented with the shortness of breath for about 2 weeks he has dyspnea on exertion without any orthopnea for about 2 weeks. Cough with white sputum but mostly dry according to patient. No fever but feel cold sometimes. Patient is poor historian and the information was obtained through a lot of leading questions and review of record. He also has some right shoulder neck and left-sided chest pain for about 2 months. On questioning he states this pain is going on for 2 months and he was admitted here about 2 months ago with the right sided calf swelling cellulitis and had chest pain at that time with the mild elevated troponin and was thought to be noncardiac. At [facility] he was noted to have elevated d-dimer of more than 5000. He was noted to have BUN of 46 and creatinine 2.6. His baseline creatinine is at 1.4 from last admission. His troponin is less than 0.05 and CPK 90 BNP of 424. Hemoglobin was 8 and hematocrit 24.4. He has was hypotensive with a blood pressure 107/59. He had at the [facility] he had a lab work repeated and noted to have BUN of 15 creatinine 2.4 hemoglobin 8.8 hematocrit 26.8 his d-dimer is at 6.3. He has a swelling of the right leg with some pain without any fever. He underwent venous Dopplers of right leg. Report not available but I was informed that DVT was ruled out with negative Doppler. Patient also noted to have a blood pressure of 89/56 on presentation here he denies any nausea vomiting diarrhea has been eating okay and drinking fluids. He is voiding without any problem and has normal color of urine according to him without any dysuria or hematuria. He denies any nonsteroidal anti-inflammatory drug use except for aspirin daily Home Medications Medication Instructions Recorded Confirmed Type Glimepiride [Amaryl] 4 mg PO DAILY 12/26/14 08/05/16 History Saxagliptin HCl [Onglyza] 2.5 mg PO DAILY 12/26/14 08/05/16 History Aspirin [Aspirin EC] 81 mg PO DAILY 08/05/16 08/05/16 History Simvastatin 20 mg PO BEDTIME 08/05/16 08/05/16 History Allergies Allergy/AdvReac Type Severity Reaction Status Date / Time No Known Allergies Allergy Verified 10/13/16 22:58 Medical,Surgical,& Family Hx - Medical History Neurology: History of: Peripheral Neuropathy HEENT: History of: Eye Problem (cataract surgery bilateral) Endocrine: History of: Diabetes Mellitus (NIDDM) No history of: Diabetes Mellitus (IDDM) Respiratory: No history of: Obstructive Sleep Apnea Renal: History of: Renal Problems Hematology: History of: Blood Disorders (chronic thrombocytopenia) Other: History of: Skin Problems (detailed man drained an abscess on his hip for lower abdomen sometime in ) - Surgical History Surgical History: noncontributory Orthopedic Surgeries: Surgical HX of;: Orthopedic Surgery (hip abscess. History of surgery left foot) - Family History Family History: Reports;: Family Cancer (grandmother-breast,), Family Diabetes ( DAD), Family Stroke (GRANDMOTHER, SISTER) Denies;: Family Heart Disease, Family Hypertension - Social History Smoking Status: Former smoker Frequency of Alcohol Use: None Type of Drug Use: None Review of systems: Comprehensive review of system was done and negative unless indicated in HPI Exam - Constitutional Vitals: Period Temp Pulse Resp BP Sys/De [place] Rosa Pulse Ox Last 24 Hr 97.8 F 76-78 18-18 89-109/56-65 96 General appearance: no acute distress, morbidly obese - Head Head exam: Present: normal inspection, normocephalic, atraumatic - Eye Eye exam: Present: EOMI, conjunctival injection Pupils: Present: LONI, normal accommodation - ENT ENT exam: Present: normal oropharynx - Neck Neck exam: Present: other (Supple) - Respiratory Respiratory exam: Present: clear to auscultation bilaterally. Absent: rales, rhonchi - Cardiovascular Cardiovascular exam: Present: regular rate and rhythm. Absent: tachycardia - GI/Abdominal GI/Abdominal exam: Present: normal bowel sounds, soft. Absent: distended, tenderness - Extremities Exam Extremities exam: Present: edema (Bilateral lower extremities edema present spatially right side) - Neurological Exam Neurological exam: Present: alert, oriented X3 Results - Labs CBC & BMP: 10/13/16 23:28 10/13/16 23:28 Lab Results: I have reviewed the past 24 hour labs
[2016-10-14] MEDS ORDERED: HEPARIN DRIP 25,000 UNITS/500 ML PREMIX IV SCH (02:00)
[2016-10-14] MEDS: SODIUM CHLORIDE 0.45% 1,000 ML IV SCH ×3 (02:40→20:56)
[2016-10-14 06:27] LABS: Basophils % 0.4 % (0.0-0.8); Eosinophils # 0.7 10*3/uL (0.0-0.87); Eosinophils % 10.5 % (0.00-10.9); Hemoglobin 7.5 GM/DL (14.0-18.0); Immature Granulocytes % 1.2 %; Immature Granulocytes Absolute 0.08 #; Lymphocytes % 29.8 % (21.2-54.2); Mean Corpuscular HGB Conc 31.3 GM/DL (32-36); Mean Corpuscular Hemoglobin 27 PG (27-34); Mean Corpuscular Volume 87.6 FL (87-102); Mean Platelet Volume 14.5 FL (9.6-12.0); Monocytes # 0.5 10*3/uL (0.11-0.8); Monocytes % 7.8 % (1.7-12.7); Neutrophils # 3.4 10*3/uL (1.4-7.4); Neutrophils % 50.3 % (38.7-73.9); Red Blood Count 2.74 MC/CUMM (3.8-5.5); Red Cell Distribution Width 14.3 % (9.3-17.3); White Blood Count 6.7 T/CUMM (4-12)
[2016-10-14 06:39] LABS: Platelet Count 70 T/CUMM (130-400)
[2016-10-14 06:43] LABS: Apearance,Urine CLOUDY (Clear); Bilirubin,Urine Negative (Negative); Blood, Urine Small mg/dL (Negative); Glucose,Urine (UA) Negative (Negative); Hyaline Casts,Urine 12 /LPF (0-3); Ketones,Urine Negative (Negative); Mucus,Urine Occasional /LPF (Occasional); Nitrite,Urine Negative (Negative); Protein,Urine >=500 MG/DL; RBC,Urine 5 /HPF (0-4); Squamous Epithelial Cell,Urine Occasional /HPF (0-10); Urine Color Yellow (Yellow); Urine Specific Gravity 1.022 (1.001-1.035); Urine Urobilinogen < 2.0 EU/DL (0.2-1.0); WBC,Urine 2 /HPF (0-6)
[2016-10-14] MEDS: INSULIN LISPRO 100 UNIT/ML SUBCUT SCH ×4 (07:41→20:55)
[2016-10-14 07:53] LABS: Albumin 2.7 G/DL (3.4-5.0); Bilirubin,Total 0.5 MG/DL (0.2-1.0); Calcium 7.9 MG/DL (8.5-10.1); Osmolality,Calculated 293.4 MOS/KG (273-304); Potassium 4.8 MMOL/L (3.5-5.1); Total Protein 7.1 G/DL (6.4-8.3)
--- NOTE | 2016-10-14 08:07 | Hospitalist Progress Note ---
Assessment and Plan (1) Dyspnea Status: Acute Assessment and plan: Impression: 1. Exertional dyspnea, I am concerned about coronary disease in this patient. PE seems unlikely. 2. Type II DM Plan: Await lung scan. If it is a normal, I think we can discontinue anticoagulation , and decide whether we want to pursue inpatient or outpatient evaluation of his cardiac status. This note was completed using [employer] voice recognition software. There may be repairer auto clocks errors as a result. Current Visit: Yes Qualifiers: Dyspnea type: dyspnea on exertion Qualified Code(s): R06.09 - Other forms of dyspnea Hospitalist: Subjective Interval history: Follow-up exertional dyspnea. The patient tells me that he has shortness of breath when he is at work. 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 He denies any dyspnea at rest, and also denies any orthopnea. He has never been told that he had cardiac disease. I note that he was admitted to this hospital in July, and at that time he underwent a CT pulmonary angiogram for equivocal reasons, and it was negative. He had an echocardiogram 2 years ago that did not reveal any significant abnormalities. He has been diabetic for over 10 years, with evidently poor control. Currently , he appears comfortable and denies dyspnea. He is receiving a heparin infusion while we await a lung scan. Apparently, a chest CT pulmonary angiogram was contemplated, but not ordered due to his level of kidney function. He is apparently chronically anemic, although his hemoglobin has declined somewhat over the past 2 years. He remains thrombocytopenic, and this is apparently immune mediated, and followed at [facility]. Exam - Constitutional Vitals: Period Temp Pulse Resp BP Sys/De La Rosa Pulse Ox Last 24 Hr 97.6 F-97.8 F 70-78 18-22 89-114/56-73 93-96 Vital signs are noted above. Heart is regular with no murmur or gallop. Lungs are clear with no rales or wheezes. Abdomen is obese with no mass or tenderness. Awakens easily. Results - Labs CBC & BMP: 10/14/16 04:22 10/14/16 04:22 Lab Results: I have reviewed the past 24 hour labs
[2016-10-14 08:17] LABS: Platelet Estimate Decreased
--- NOTE | 2016-10-14 08:18 | XRay Report ---
XR chest 1V portable Indication: Shortness of breath Comparison: Chest x-ray 10/13/2016 Technique: Portable AP chest was performed. Findings: Heart size is normal. Pulmonary vasculature appears within normal limits. No significant abnormality of the mediastinal contours demonstrated. Lungs are clear. Bones and soft tissues demonstrate no significant abnormalities. Impression: 1. No evidence of acute pathology. 10/14/2016 8:16 AM PROCEDURE INTERPRETED AT [facility] DEPARTMENT OF RADIOLOGY Final Report Signed by: Dr. Librado Low
--- NOTE | 2016-10-14 08:19 | Ultrasound Report ---
US venous doppler LE RT Indication: Right lower extremity pain and swelling. Comparison: None. Technique: Using transcutaneous probe, color Doppler, spectral Doppler, and grayscale images prior to and following compression were obtained of the right lower extremity. Ultrasound images were captured and stored. Interrogated venous structures include the right common femoral vein, superficial femoral vein (proximal, mid, and distal), and popliteal vein. Findings: There is no evidence of thrombus within the interrogated right lower extremity venous structures. Spectral flow and color flow are present within the interrogated venous segments. Impression: 1. No evidence of venous thrombosis. 10/14/2016 8:16 AM PROCEDURE INTERPRETED AT [facility] DEPARTMENT OF RADIOLOGY Final Report Signed by: Dr. Librado Low
--- NOTE | 2016-10-14 09:26 | Nuclear Medicine Report ---
NM lung scan vent and per Indication: Shortness of breath. Comparison: None. Technique: Ventilation scan of the lungs was performed. 40 mCi of technetium 99m labeled DTPA was administered in aerosolized form, following which planar imaging in the anterior, JOSE LUIS, and CARRINGTON projections was accomplished. Following this, 5 mCi technetium 99m labeled MAA was injected intravenously and perfusion scanning of the chest was performed in the anterior, JOSE LUIS, and CARRINGTON projections. Findings: No perfusion defects are demonstrated. Impression: 1. The lack of perfusion defect essentially excludes pulmonary artery embolus. 10/14/2016 9:22 AM PROCEDURE INTERPRETED AT [facility] DEPARTMENT OF RADIOLOGY Final Report Signed by: Dr. Librado Low
--- NOTE | 2016-10-14 09:53 | Ultrasound Report ---
US renal Bilateral Indication: Acute kidney injury. Comparison: None. Technique: Using transcutaneous probe, routine renal ultrasound was performed. Ultrasound images were captured and stored. Findings: Right kidney measures 11.7 cm in craniocaudal dimension. Left kidney measures 11.9 cm in craniocaudal dimension. Neither kidney demonstrates evidence of hydronephrosis, perinephric fluid, or nephrolithiasis. Impression: 1. Findings as detailed. 10/14/2016 9:50 AM PROCEDURE INTERPRETED AT [facility] DEPARTMENT OF RADIOLOGY Final Report Signed by: Dr. Librado Low
[2016-10-14] MEDS: PANTOPRAZOLE 40 MG TABLET PO SCH (10:01)
[2016-10-14] MEDS: ASPIRIN EC 81 MG TABLET PO SCH (10:01)
--- NOTE | 2016-10-14 12:23 | Nephrology Consult Note ---
History of Present Illness Chief complaint: ARF History of present illness: Mr. Whiting is a 45 year old male admitted with shortness of breath. This is primarily SEVILLA. DVT has been ruled out. VQ scan just completed is negative for PE. He was noted to have renal insufficiency at the time of admission. He denies dysuria hematuria or obstructive symptoms. He has not seen a facing baster jumpbasting in the past and has not been told that he had renal insufficiency. Home Medications Medication Instructions Recorded Confirmed Type Glimepiride [Amaryl] 4 mg PO DAILY 12/26/14 08/05/16 History Saxagliptin HCl [Onglyza] 2.5 mg PO DAILY 12/26/14 08/05/16 History Aspirin [Aspirin EC] 81 mg PO DAILY 08/05/16 08/05/16 History Simvastatin 20 mg PO BEDTIME 08/05/16 08/05/16 History Allergies Allergy/AdvReac Type Severity Reaction Status Date / Time No Known Allergies Allergy Verified 10/13/16 22:58 Medical,Surgical,& Family Hx - Medical History Cardio: History of: Hypertension Neurology: History of: Peripheral Neuropathy HEENT: History of: Eye Problem (cataract surgery bilateral) Endocrine: History of: Diabetes Mellitus (NIDDM) No history of: Diabetes Mellitus (IDDM) Respiratory: No history of: Obstructive Sleep Apnea Renal: History of: Renal Problems (Renal insufficiences) Hematology: History of: Blood Disorders (chronic thrombocytopenia) Other: History of: Skin Problems (detailed man drained an abscess on his hip for lower abdomen sometime in ) - Surgical History Thoracic Surgeries: Patient denies;: Organ Transplant Neurologic Surgeries: Patient denies: Neurologic Surgery HEENT Surgeries: Surgical HX of: Eye Surgery Orthopedic Surgeries: Surgical HX of;: Orthopedic Surgery (hip abscess. History of surgery left foot), Total Knee Replacement (knee scope bilateral) - Family History Family History: Reports;: Family Cancer (grandmother-breast,), Family Diabetes ( DAD), Family Stroke (GRANDMOTHER, SISTER) Denies;: Family Heart Disease, Family Hypertension - Social History Smoking Status: Former smoker Frequency of Alcohol Use: None Type of Drug Use: None Review of Systems 12 point system: reviewed and no additional remarkable complaints except as stated Exam - Vital Signs Vital signs: Period Temp Pulse Resp BP Sys/De La Rosa Pulse Ox Last 24 Hr 97.4 F-97.8 F 70-78 18-22 89-128/56-87 93-96 Exam: Gen.: Alert and oriented x3. ENT: Pupils equal round reactive to light. EOMs intact. Mucous membranes moist. Neck: Supple. No JVD or bruit. Cardiovascular: Regular rate and rhythm. No murmur rub or gallop Lungs: Clear Abdomen: Soft. Nontender. Positive bowel sounds. No organomegaly Extremities: Trace edema right lower extremity Results - Labs CBC & BMP: 10/14/16 04:22 10/14/16 04:22 Assessment and Plan (1) Orthostasis Status: Acute Current Visit: No (2) Acute renal failure Status: Acute Assessment and plan: 45-year-old man with: * Orthostatic hypotension. This is likely due to neuropathy from diabetes * ARF. Review of his records shows creatinine lópez to 2.6 in July 2016 during a prior admission. He did receive contrast during this admission. Renal function has improved since admission with IV fluid. This will be continued. Renal ultrasound shows no anatomic abnormality. Urinalysis shows significant proteinuria. Paraprotein will be ruled out. This is likely due to diabetes as well. * SEVILLA. Etiology unclear. PE ruled out. Symptoms have improved since admission * Diabetes mellitus * Anemia * Chronic thrombocytopenia Current Visit: No (3) Diabetes mellitus Status: Chronic Current Visit: No (4) Chronic idiopathic thrombocytopenia Status: Chronic Current Visit: No (5) Anemia Status: Chronic Current Visit: No (6) Peripheral neuropathy Status: Acute Current Visit: No (7) Dyspnea Status: Acute Current Visit: Yes Qualifiers: Dyspnea type: dyspnea on exertion Qualified Code(s): R06.09 - Other forms of dyspnea
--- NOTE | 2016-10-14 14:49 | ECHO Report ---
Chad Whiting Exam Date: 10/14/2016 11:34 Referring Physician: Technologist: Monica Cueva RDCS Age: 45 Ht (in): 69 Wt (lb): 266 Gender: M Exam Location: [facility] Echo Indications: Dyspnea, unspecified, Acute kidney failure, unspecified, Chronic idiopathic thrombocytopenia, NIDDM, Anemia BP: 128 / 87 HR: 65 Rhythm: Sinus Technical Quality: IMPRESSIONS Normal left ventricular cavity size. EF 55-60 %. Grade I/IV diastolic dysfunction (abnormal relaxation filling pattern), normal to mildly elevated filling pressures. The right ventricle is normal in size and function. The right atrium is mildly enlarged. The left atrium is mildly enlarged. Morphologically normal mitral valve. No mitral valve regurgitation. The aortic valve is trileaflet and has normal motion. No aortic valve regurgitation. Mild tricuspid valve regurgitation. OUS72-53 mmHG. Pulmonic valve not well visualized. Normal pericardium without effusion. Normal ascending aorta dimension. MEASUREMENTS (Male / Female) Normal Values 2D ECHO LV Diastolic Diameter PLAX 5.7 cm 4.2 - 5.9 / 3.9 - 5.3 cm LV Systolic Diameter PLAX 3.9 cm LV Fractional Shortening PLAX 31.6 % IVS Diastolic Thickness 1.2 cm 0.6 - 1.0 / 0.6 - 0.9 cm LVPW Diastolic Thickness 1.2 cm 0.6 - 1.0 / 0.6 - 0.9 cm RV Internal Dim ED PLAX 2.9 cm Aortic Root Diameter 3.1 cm LA Systolic Diameter LX 4.3 cm 3.0 - 4.0 / 2.7 - 3.8 cm FINDINGS Left Ventricle Normal left ventricular cavity size. EF 55-60 %. Grade I/IV diastolic dysfunction (abnormal relaxation filling pattern), normal to mildly elevated filling pressures. Right Ventricle The right ventricle is normal in size and function. Right Atrium The right atrium is mildly enlarged. Left Atrium The left atrium is mildly enlarged. Mitral Valve Morphologically normal mitral valve. No mitral valve regurgitation. Aortic Valve The aortic valve is trileaflet and has normal motion. No aortic valve regurgitation. Tricuspid Valve Morphologically normal tricuspid valve. Mild tricuspid valve regurgitation. CGX82-64 mmHG. Pulmonic Valve Pulmonic valve not well visualized. . Pericardium Normal pericardium without effusion. Aorta Normal ascending aorta dimension. Anthony Plavac (Electronically Signed) Final Date: 14 October 2016 14:48
[2016-10-14] MEDS: SIMVASTATIN 20 MG TABLET PO SCH (20:55)
[2016-10-15] MEDS: SODIUM CHLORIDE 0.45% 1,000 ML IV SCH ×3 (02:54→21:07)
[2016-10-15] MEDS: INSULIN LISPRO 100 UNIT/ML SUBCUT SCH ×4 (07:13→21:05)
--- NOTE | 2016-10-15 08:06 | Hospitalist Progress Note ---
Assessment and Plan (1) Dyspnea Status: Acute Assessment and plan: Impression: 1. Exertional dyspnea, I am concerned about coronary disease in this patient. PE has been ruled out. 2. Type II DM 3. Probable acute kidney injury on chronic kidney disease (diabetic) Plan: Continue IV fluids and follow creatinine. Increase activity. Recheck lab in the morning. If his hemoglobin continues to trend down, he may need transfusion , as the anemia might be contributing to his dyspnea. This note was completed using [employer] voice recognition software. There may be mma fighter errors as a result. Current Visit: Yes Qualifiers: Dyspnea type: dyspnea on exertion Qualified Code(s): R06.09 - Other forms of dyspnea Hospitalist: Subjective Interval history: Follow-up exertional dyspnea and acute kidney injury. The patient reports that his dyspnea has improved. His lung scan was negative, so we discontinued his heparin infusion. Nephrology has seen the patient, and has recommended further evaluation. The patient is currently eating breakfast, and offers no complaints. Exam - Constitutional Vitals: Period Temp Pulse Resp BP Sys/De [place] Rosa Pulse Ox Last 24 Hr 97.4 F-97.7 F 65-77 17-22 128-157/81-94 93-94 Vital signs are noted above. Heart is regular with distant tones and no murmur or gallop. Lungs are fairly clear with no rales or wheezes. He is awake and alert Results - Labs CBC & BMP: 10/14/16 04:22 10/14/16 04:22 Lab Results: I have reviewed the past 24 hour labs
[2016-10-15] MEDS: PANTOPRAZOLE 40 MG TABLET PO SCH (09:09)
[2016-10-15] MEDS: ASPIRIN EC 81 MG TABLET PO SCH (09:09)
[2016-10-15] MEDS: sitaGLIPtin 25 MG TABLET PO SCH (10:57)
[2016-10-15] MEDS: GLIMEPIRIDE 4 MG TABLET PO SCH (10:58)
[2016-10-15 17:43] LABS: Collection Time,Urine 24 HOURS; Total Protein 24 Hr Ur Result 3325 MG/24HR (0-149.1); Total Volume,Urine 2500 ML (400-2000)
[2016-10-15 17:46] LABS: Protein/Creatinine Ratio,Urine 1.9 RATIO
[2016-10-15] MEDS: SIMVASTATIN 20 MG TABLET PO SCH (21:05)
--- NOTE | 2016-10-15 21:21 | Nephrology Progress Note ---
Nephrology - PN: Subj Interval history: No shortness of breath. No GI symptoms Exam (PN)-Nephrology - Vital Signs Vital signs: Period Temp Pulse Resp BP Sys/[place] Pulse Ox Last 24 Hr 97.2 F-97.8 F 64-73 17-22 137-159/83-94 92-94 Exam: Gen.: Alert and oriented x3. ENT: Pupils equal round reactive to light. EOMs intact. Mucous membranes moist. Neck: Supple. No JVD or bruit. Cardiovascular: Regular rate and rhythm. No murmur rub or gallop Lungs: Clear Abdomen: Soft. Nontender. Positive bowel sounds. No organomegaly Extremities: Trace edema - Lab 10/14/16 04:22 10/14/16 04:22 Most recent lab results Calcium 7.9 MG/DL (8.5-10.1) L 10/14/16 04:22 Ur Total Protein 24 Hr 3325 MG/24HR (0-149.1) H 10/14/16 17:11 Assessment and Plan (1) Orthostasis Status: Acute Current Visit: No (2) Acute renal failure Status: Acute Assessment and plan: 45-year-old man with: * Orthostatic hypotension. This is likely due to neuropathy from diabetes * ARF. No chemistries today. 24 hour urine and progress to quantify proteinuria. Suspect nephrotic syndrome secondary to diabetes * SEVILLA. Etiology unclear. PE ruled out. Symptoms have improved since admission * Diabetes mellitus * Anemia * Chronic thrombocytopenia Current Visit: No (3) Diabetes mellitus Status: Chronic Current Visit: No (4) Chronic idiopathic thrombocytopenia Status: Chronic Current Visit: No (5) Anemia Status: Chronic Current Visit: No (6) Peripheral neuropathy Status: Acute Current Visit: No (7) Dyspnea Status: Acute Current Visit: Yes Qualifiers: Dyspnea type: dyspnea on exertion Qualified Code(s): R06.09 - Other forms of dyspnea
[2016-10-16] MEDS: SODIUM CHLORIDE 0.45% 1,000 ML IV SCH ×3 (02:02→13:46)
[2016-10-16 06:09] LABS: Basophils % 0.6 % (0.0-0.8); Eosinophils # 0.8 10*3/uL (0.0-0.87); Eosinophils % 11.3 % (0.00-10.9); Hematocrit 24.3 VOL% (42.0-52.0); Hemoglobin 7.8 GM/DL (14.0-18.0); Immature Granulocytes % 0.7 %; Immature Granulocytes Absolute 0.05 #; Lymphocytes # 1.7 10*3/uL (1.4-4.0); Lymphocytes % 24.4 % (21.2-54.2); Mean Corpuscular HGB Conc 32.1 GM/DL (32-36); Mean Corpuscular Hemoglobin 28 PG (27-34); Mean Corpuscular Volume 85.6 FL (87-102); Mean Platelet Volume 14.5 FL (9.6-12.0); Monocytes # 0.5 10*3/uL (0.11-0.8); Monocytes % 6.7 % (1.7-12.7); Neutrophils # 3.8 10*3/uL (1.4-7.4); Neutrophils % 56.3 % (38.7-73.9); Platelet Count 75 T/CUMM (130-400); Red Blood Count 2.84 MC/CUMM (3.8-5.5); Red Cell Distribution Width 14.1 % (9.3-17.3); White Blood Count 6.8 T/CUMM (4-12)
[2016-10-16 06:41] LABS: Calcium 7.9 MG/DL (8.5-10.1); Osmolality,Calculated 286.1 MOS/KG (273-304); Potassium 4.8 MMOL/L (3.5-5.1)
[2016-10-16 07:24] LABS: Eosinophils 9 % (0-10); Hypochromasia Slight; Lymphocytes 22 % (20-55); Macrocytosis 1+; Segmented Neutrophils 66 % (50-85); Total Cells Counted 100
[2016-10-16] MEDS: INSULIN LISPRO 100 UNIT/ML SUBCUT SCH ×4 (08:02→20:46)
[2016-10-16] MEDS: sitaGLIPtin 25 MG TABLET PO SCH (08:32)
[2016-10-16] MEDS: ASPIRIN EC 81 MG TABLET PO SCH (08:32)
[2016-10-16] MEDS: GLIMEPIRIDE 4 MG TABLET PO SCH (08:32)
[2016-10-16] MEDS: PANTOPRAZOLE 40 MG TABLET PO SCH (08:32)
[2016-10-16 09:16] LABS: Albumin (SPE) 3.2 G/DL (3.2-5.3); Albumin (SPE) Rel % 43.1 %; Alpha 1 (SPE) 0.3 G/DL (0.1-0.4); Alpha 1 (SPE) Rel % 4.5 %; Alpha 2 (SPE) 0.8 G/DL (0.4-1.0); Alpha 2 (SPE) Rel % 11.7 %; Beta (SPE) 0.8 G/DL (0.5-1.1); Beta (SPE) Rel % 11.1 %; Gamma (SPE) 2.2 G/DL (0.7-1.7); Gamma (SPE) Rel % 29.6 %; Total Protein (Chem) 7.3 G/DL (6.4-8.3)
[2016-10-16 09:23] LABS: Albumin (UPE) 2427.3 MG/24H; Alpha 1 (UPE) 103.4 MG/24H; Alpha 1 (UPE) Rel % 3.2 %; Alpha 2 (UPE) 116.4 MG/24H; Alpha 2 (UPE) Rel % 3.5 %
[2016-10-16 09:24] LABS: Beta (UPE) 186.2 MG/24H; Beta (UPE) Rel % 5.6 %; Gamma (UPE) 488.8 MG/24H; Gamma (UPE) Rel % 14.7 %
[2016-10-16] MEDS ORDERED: SODIUM CHLORIDE 0.9% 250 ML IV PRN (11:04)
--- NOTE | 2016-10-16 13:05 | Hospitalist Progress Note ---
Assessment and Plan (1) Diabetes mellitus Status: Chronic Assessment and plan: 1)dyspnea- no PE on VQ, heparin stopped. His H&h has dropped since admission to 7.5/24, but was only 8.8/26.8 to start with. THis is likely a factor in his symptoms. Transfuse 2 U PRBC today. He sats he has seen a wooling machine operator in [place] but doesn't know what he thought was causing it. He has not ever had GI workup. No overt blood loss observed. guaiac stools. 2)morbid obesity 3)DM-accuchecks ok, cont current regimen. 4)HÉCTOR- resolved. stop IVF. 5)thrombocytopenia- chronic 6)Denies alcohol use. Current Visit: No (2) Anemia Status: Chronic Current Visit: No (3) Peripheral neuropathy Status: Acute Current Visit: No (4) Thrombocytopenia Status: Chronic Current Visit: No (5) Dyspnea Status: Acute Current Visit: Yes Qualifiers: Dyspnea type: dyspnea on exertion Qualified Code(s): R06.09 - Other forms of dyspnea Hospitalist: Subjective Interval history: Mr Whiting says he is feeling ok, but has not been up much to test his shortness of breath with exertion. H&H down to 7.5/24 and is likely contributing ot his multifactorial SEVILLA. No pain. appetite good. Exam - Constitutional Vitals: Period Temp Pulse Resp BP Sys/[place] Pulse Ox Last 24 Hr 97.0 F-98.6 F 67-95 18-20 133-152/78-90 92-99 General appearance: no acute distress, morbidly obese - Eye Eye exam: Present: EOMI. Absent: scleral icterus - Respiratory Respiratory exam: Present: clear to auscultation bilaterally - Cardiovascular Cardiovascular exam: Present: regular rate and rhythm - GI/Abdominal GI/Abdominal exam: Present: normal bowel sounds, soft. Absent: tenderness - Extremities Exam Extremities exam: Absent: edema - Neurological Exam Neurological exam: Present: alert, oriented X3. Absent: motor sensory deficit - Skin Skin exam: Present: warm, dry. Absent: rash Results - Labs CBC & BMP: 10/16/16 04:22 10/16/16 04:22 Lab Results: I have reviewed the past 24 hour labs
--- NOTE | 2016-10-16 13:41 | Nephrology Progress Note ---
Nephrology - PN: Subj Interval history: No shortness of breath or GI symptoms. Exam (PN)-Nephrology - Vital Signs Vital signs: Period Temp Pulse Resp BP Sys/[place] Pulse Ox Last 24 Hr 97.0 F-98.6 F 67-95 18-20 133-152/78-90 92-99 Exam: ENT: Normal Cardiovascular: Regular rate and rhythm. No murmur rub or gallop Lungs: Clear Extremities: No edema - Lab 10/16/16 04:22 10/16/16 04:22 Most recent lab results Calcium 7.9 MG/DL (8.5-10.1) L 10/16/16 04:22 Ur Total Protein 24 Hr 3325 MG/24HR (0-149.1) H 10/14/16 17:11 Assessment and Plan (1) Orthostasis Status: Acute Current Visit: No (2) Acute renal failure Status: Acute Assessment and plan: 45-year-old man with: * Orthostatic hypotension. This is likely due to neuropathy from diabetes * ARF. Resolved * Proteinuria. 24 hour urine 3.3 g. This is near nephrotic range proteinuria secondary to diabetes. Electrophoresis negative for paraprotein. Outpatient follow-up will be scheduled * SEVILLA. Etiology unclear. PE ruled out. Symptoms have improved since admission * Diabetes mellitus * Anemia * Chronic thrombocytopenia Current Visit: No (3) Diabetes mellitus Status: Chronic Current Visit: No (4) Chronic idiopathic thrombocytopenia Status: Chronic Current Visit: No (5) Anemia Status: Chronic Current Visit: No (6) Peripheral neuropathy Status: Acute Current Visit: No (7) Dyspnea Status: Acute Current Visit: Yes Qualifiers: Dyspnea type: dyspnea on exertion Qualified Code(s): R06.09 - Other forms of dyspnea
[2016-10-16] MEDS: SIMVASTATIN 20 MG TABLET PO SCH (20:13)
[2016-10-17 07:01] LABS: Basophils % 0.6 % (0.0-0.8); Eosinophils # 0.7 10*3/uL (0.0-0.87); Eosinophils % 10.8 % (0.00-10.9); Hematocrit 30.2 VOL% (42.0-52.0); Hemoglobin 10.1 GM/DL (14.0-18.0); Immature Granulocytes % 0.8 %; Immature Granulocytes Absolute 0.05 #; Lymphocytes # 1.6 10*3/uL (1.4-4.0); Lymphocytes % 23.6 % (21.2-54.2); Mean Corpuscular HGB Conc 33.4 GM/DL (32-36); Mean Corpuscular Hemoglobin 29 PG (27-34); Mean Corpuscular Volume 85.3 FL (87-102); Mean Platelet Volume 13.5 FL (9.6-12.0); Monocytes # 0.5 10*3/uL (0.11-0.8); Monocytes % 7.4 % (1.7-12.7); Neutrophils # 3.8 10*3/uL (1.4-7.4); Neutrophils % 56.8 % (38.7-73.9); Platelet Count 73 T/CUMM (130-400); Red Blood Count 3.54 MC/CUMM (3.8-5.5); Red Cell Distribution Width 13.9 % (9.3-17.3); White Blood Count 6.7 T/CUMM (4-12)
[2016-10-17 07:25] LABS: Eosinophils 10 % (0-10); Hypochromasia 1+; Lymphocytes 21 % (20-55); Ovalocytes Slight; Platelet Estimate Decreased; Segmented Neutrophils 63 % (50-85); Total Cells Counted 100
[2016-10-17 07:26] LABS: Giant Platelets Few; Macrocytosis Slight
[2016-10-17 07:46] VITALS: BP 138/77
[2016-10-17] MEDS: INSULIN LISPRO 100 UNIT/ML SUBCUT SCH (08:27)
[2016-10-17] MEDS: ASPIRIN EC 81 MG TABLET PO SCH (08:56)
[2016-10-17] MEDS: sitaGLIPtin 25 MG TABLET PO SCH (08:56)
[2016-10-17] MEDS: GLIMEPIRIDE 4 MG TABLET PO SCH (08:56)
[2016-10-17] MEDS: PANTOPRAZOLE 40 MG TABLET PO SCH (08:56)
--- NOTE | 2016-10-17 10:25 | Discharge Summary ---
Hospital Course - Hospital Course Hospital Course: Mr Whiting presented with dyspnea on exertion. He has had anemia for a while and sees a manager corporate responsibility in [place]. While here PE was ruled out as was ACS. He had anemia and was transfused with 2 units and felt better with resolution of his dyspnea. He will conitnue to follow up with [facility], his [place] manager corporate responsibility and DR Kaba. He has new diagnosis of nephrotic syndrome, chronic thrombocytopenia. His diabetes was controlled while here. - Time spent with patient Time with patient DS: Greater than 30 minutes (exam, discharge planning, medicine reconciliation, documentation) Diagnosis - Discharge Diagnosis (1) Diabetes mellitus Status: Chronic (2) Anemia Status: Chronic (3) Peripheral neuropathy Status: Chronic (4) Thrombocytopenia Status: Chronic (5) Dyspnea Status: Resolved (6) Symptomatic anemia Status: Acute Specialty Discharge - Follow Up or Referrals Follow up with: Chantell Mars MD [Primary Care Provider] - 3 Days (follow up anemia. refer back to the manager corporate responsibility in [place] he has been seeing. monitor DM and neuropathy) Jose M Kaba MD [Physician] - 02/26/17 1:30 pm Discharge Plan - Discharge Data Disposition: Disch To Home/Self Care Condition at Discharge: Stable Discharge Diet: diabetic diet, heart healthy Activity: resume usual activities as tolerated - Discharge Medications Continue Saxagliptin HCl [Onglyza] 2.5 mg PO DAILY Glimepiride [Amaryl] 4 mg PO DAILY Aspirin [Aspirin EC] 81 mg PO DAILY Simvastatin 20 mg PO BEDTIME Terbinafine HCl [Terbinafine 1% Cream] 1 applic TOP BID - Follow Up or Referral Follow Up: Chantell Mars MD [Primary Care Provider] - 3 Days (follow up anemia. refer back to the manager corporate responsibility in [place] he has been seeing. monitor DM and neuropathy) Jose M Kaba MD [Physician] - 02/26/17 1:30 pm - Forms/Instructions Instructions: Dyspnea (GEN) Exam - Constitutional Vitals: Period Temp Pulse Resp BP Sys/[place] Pulse Ox Last 24 Hr 97.4 F-99.0 F 65-95 18-20 133-156/77-96 94-99 General appearance: no acute distress, morbidly obese - Head Head exam: Present: normocephalic, atraumatic - Eye Eye exam: Present: EOMI. Absent: scleral icterus - Respiratory Respiratory exam: Present: clear to auscultation bilaterally - Cardiovascular Cardiovascular exam: Present: regular rate and rhythm - GI/Abdominal GI/Abdominal exam: Present: normal bowel sounds, soft. Absent: tenderness - Extremities Exam Extremities exam: Absent: edema Discharge Results Labs on day of discharge: Labs from last 24 hours 10/17/16 10/16/16 10/16/16 06:47 Unknown 19:24 WBC 6.7 RBC 3.54 L D Hgb 10.1 L D Hct 30.2 L MCV 85.3 L MCH 29 MCHC 33.4 RDW 13.9 Plt Count 73 L MPV 13.5 H Neut % (Auto) 56.8 Lymph % (Auto) 23.6 [place] % (Auto) 7.4 Eos % (Auto) 10.8 Baso % (Auto) 0.6 Neut # (Auto) 3.8 Lymph # (Auto) 1.6 [place] # (Auto) 0.5 Eos # (Auto) 0.7 Baso # (Auto) 0.0 Total Counted 100 Immature Gran % 0.8 Nucleated RBC % 0.0 Immature Gran # 0.05 Segmented Neutrophils 63 Lymphocytes 21 Monocytes 6 Eosinophils 10 Nucleated RBCs # 0.00 Platelet Estimate Decreased Giant Platelets Few Immature Plt Fraction 0.0 Hypochromasia 1+ Macrocytosis Slight Ovalocytes Slight Morphology Comment POC Glucose 119 H Blood Type O POSITIVE Antibody Screen Crossmatch 10/16/16 10/16/16 10/16/16 15:18 11:58 07:13 WBC RBC Hgb Hct MCV MCH MCHC RDW Plt Count MPV Neut % (Auto) Lymph % (Auto) [place] % (Auto) Eos % (Auto) Baso % (Auto) Neut # (Auto) Lymph # (Auto) [place] # (Auto) Eos # (Auto) Baso # (Auto) Total Counted Immature Gran % Nucleated RBC % Immature Gran # Segmented Neutrophils Lymphocytes Monocytes Eosinophils Nucleated RBCs # Platelet Estimate Giant Platelets Immature Plt Fraction Hypochromasia Macrocytosis Ovalocytes Morphology Comment POC Glucose 104 108 H 102 Blood Type Antibody Screen Crossmatch 10/16/16 04:19 WBC RBC Hgb Hct MCV MCH MCHC RDW Plt Count MPV Neut % (Auto) Lymph % (Auto) [place] % (Auto) Eos % (Auto) Baso % (Auto) Neut # (Auto) Lymph # (Auto) [place] # (Auto) Eos # (Auto) Baso # (Auto) Total Counted Immature Gran % Nucleated RBC % Immature Gran # Segmented Neutrophils Lymphocytes Monocytes Eosinophils Nucleated RBCs # Platelet Estimate Giant Platelets Immature Plt Fraction Hypochromasia Macrocytosis Ovalocytes Morphology Comment POC Glucose Blood Type O POSITIVE Antibody Screen Negative Crossmatch See Detail DS: Provider Date of admission: 10/14/16 00:51 Primary care physician: Chantell Mars MD Attending physician on admission: Erlin Killian MD Consults: 10/14/16 00:51 Consult to Physician [CONS] Routine Comment: HÉCTOR Consulting Provider: Jose M Kaba Consult to Specialist Group: Nephrology When should Consulting Provider be notified: In am Person Notified: aware Discharging clinician: Madalyn Castillo MD
== END 2016-10-17 11:52 | disposition home or self-care (01) | DRG 683 ==
LOC: N.ED 22:41 → SUATTDRO 10-14 00:51 → N.EDINP 10-14 00:51 → N.5E 10-14 01:24
PROVIDERS: ADMIT Internal Medicine; ATTEND Internal Medicine

== ENCOUNTER 2017-01-12 14:45 | Inpatient (IN) ==
[2017-01-12] MEDS ORDERED: SODIUM CHLORIDE 0.9% 3,750 ML IV ONE (15:13)
[2017-01-12] MEDS ORDERED: VANCOMYCIN 1,000 MG VIAL ONE (15:19)
[2017-01-12] MEDS ORDERED: VANCOMYCIN INJ 1,000 MG in SODIUM CHLORIDE 0.9% 250 ML IV SCH (15:30)
[2017-01-12 15:40] LABS: Basophils % 0.3 % (0.0-0.8); Hematocrit 25.7 VOL% (42.0-52.0); Hemoglobin 8.6 GM/DL (14.0-18.0); Immature Granulocytes % 0.3 %; Immature Granulocytes Absolute 0.02 #; Lymphocytes # 0.3 10*3/uL (1.4-4.0); Lymphocytes % 5.2 % (21.2-54.2); Mean Corpuscular HGB Conc 33.5 GM/DL (32-36); Mean Corpuscular Hemoglobin 29 PG (27-34); Mean Corpuscular Volume 86.2 FL (87-102); Monocytes # 0.5 10*3/uL (0.11-0.8); Monocytes % 7.4 % (1.7-12.7); NRBC # 0.02 10*3/uL; Neutrophils # 5.5 10*3/uL (1.4-7.4); Neutrophils % 86.8 % (38.7-73.9); Red Blood Count 2.98 MC/CUMM (3.8-5.5); Red Cell Distribution Width 14.6 % (9.3-17.3); White Blood Count 6.4 T/CUMM (4-12)
[2017-01-12 15:43] LABS: Mean Platelet Volume 13.9 FL (9.6-12.0)
[2017-01-12 15:44] LABS: Platelet Count 24 T/CUMM (130-400)
[2017-01-12 15:48] LABS: INR 1.2; PT Patient Result 12.6 SECS; Partial Thromboplastin Time 38.7 SECS (0-40)
[2017-01-12 15:54] LABS: Albumin 2.3 G/DL (3.4-5.0); Bilirubin,Total 2.7 MG/DL (0.2-1.0); Calcium 7.2 MG/DL (8.5-10.1); Osmolality,Calculated 285.5 MOS/KG (273-304); Total Protein 6.1 G/DL (6.4-8.3)
[2017-01-12] MEDS ORDERED: ACETAMINOPHEN 325 MG TABLET PO PRN (18:20)
[2017-01-12] MEDS ORDERED: DOCUSATE SODIUM 100 MG CAPSULE PO PRN (18:20)
[2017-01-12 18:26] LABS: Band Neutrophils 12 % (0-10); Eosinophils 2 % (0-10); Lymphocytes 10 % (20-55); Metamyelocytes 1 %; Platelet Estimate Decreased; Segmented Neutrophils 70 % (50-85); Total Cells Counted 100
[2017-01-12] MEDS: SODIUM CHLORIDE 0.9% 1,000 ML IV SCH (19:47)
[2017-01-12] MEDS ORDERED: INFLUENZA VIRUS VACCINE 0.5 ML SYRINGE IM ONE (20:05)
[2017-01-12] MEDS: PIPERACILLIN/TAZOBACTAM 3,375 MG in SODIUM CHLORIDE 0.9% 100 ML IV SCH (22:00)
[2017-01-12 22:33] LABS: Apearance,Urine CLOUDY (Clear); Bacteria,Urine Many /HPF (Few); Bilirubin,Urine Negative (Negative); Blood, Urine Large mg/dL (Negative); Glucose,Urine (UA) >=500 mg/dL (Negative); Ketones,Urine Negative (Negative); Nitrite,Urine Negative (Negative); Protein,Urine >=500 MG/DL; RBC,Urine 12 /HPF (0-4); Squamous Epithelial Cell,Urine Occasional /HPF (0-10); Urine Color Amber (Yellow); WBC,Urine 26 /HPF (0-6)
[2017-01-13] MEDS ORDERED: CLINDAMYCIN INJ 900 MG in PREMIX 1 EACH IV ONE (00:42)
[2017-01-13] MEDS ORDERED: SODIUM CHLORIDE 0.9% 250 ML IV PRN ×4 (00:46→11:50)
[2017-01-13] MEDS: ACETAMINOPHEN 325 MG TABLET PO PRN (01:03)
[2017-01-13] MEDS ORDERED: SEVOFLURANE 1 UNIT/15 MINUTE INH ONE (03:18)
[2017-01-13] MEDS ORDERED: LACTATED RINGERS 1,000 ML IV ONE (03:18)
[2017-01-13] MEDS ORDERED: PROPOFOL 200 MG/20 ML VIAL IV ONE (03:18)
[2017-01-13] MEDS ORDERED: ONDANSETRON 4 MG/2 ML VIAL ONE (03:18)
[2017-01-13] MEDS ORDERED: SUCCINYLCHOLINE 200 MG/10 ML VIAL ONE (03:18)
[2017-01-13] MEDS ORDERED: fentaNYL 100 MCG/2 ML VIAL ONE (03:18)
[2017-01-13] MEDS: SODIUM CHLORIDE 0.9% 1,000 ML IV SCH ×3 (03:22→13:16)
[2017-01-13] MEDS ORDERED: LEVOFLOXACIN INJ 500 MG in PREMIX 1 EACH IV ONE (03:30)
[2017-01-13] MEDS ORDERED: HEPARIN 5,000 UNIT/1 ML VIAL SUBCUT SCH (03:30)
[2017-01-13 03:57] LABS: ABG HCO3 17.1 MMOL/L (20-26); ABG Oxygen Saturation 98.8 % (95-100); ABG PCO2 26.7 MM HG (35-48); ABG PH 7.369 (7.35-7.45); ABG TCO2 14.6 MMOL/L (23-27); Allen Test Positive; Pt O2 Delivery Device Venturi Mask
[2017-01-13 04:35] LABS: Apearance,Urine CLOUDY (Clear); Bacteria,Urine Occasional /HPF (Few); Bilirubin,Urine Negative (Negative); Blood, Urine Moderate mg/dL (Negative); Glucose,Urine (UA) 150 mg/dL (Negative); Ketones,Urine Negative (Negative); Nitrite,Urine Negative (Negative); Protein,Urine 100 MG/DL; RBC,Urine 24 /HPF (0-4); Urine Color Amber (Yellow); Urine Specific Gravity 1.014 (1.001-1.035)
[2017-01-13 06:23] LABS: Basophils % 0.2 % (0.0-0.8); Hemoglobin 7.6 GM/DL (14.0-18.0); Immature Granulocytes Absolute 0.09 #; Lymphocytes # 0.3 10*3/uL (1.4-4.0); Lymphocytes % 7.2 % (21.2-54.2); Mean Corpuscular Hemoglobin 29 PG (27-34); Mean Corpuscular Volume 86.1 FL (87-102); Monocytes # 0.3 10*3/uL (0.11-0.8); Neutrophils # 3.8 10*3/uL (1.4-7.4); Neutrophils % 83.6 % (38.7-73.9); Red Blood Count 2.67 MC/CUMM (3.8-5.5); Red Cell Distribution Width 15.1 % (9.3-17.3); White Blood Count 4.6 T/CUMM (4-12)
[2017-01-13 06:46] LABS: Calcium 7.1 MG/DL (8.5-10.1); Osmolality,Calculated 288.1 MOS/KG (273-304); Potassium 4.2 MMOL/L (3.5-5.1)
[2017-01-13 06:56] LABS: Platelet Count 33 T/CUMM (130-400)
[2017-01-13 08:01] LABS: Band Neutrophils 33 % (0-10); Burr Cells 1+; Dohle Bodies 1+; Lymphocytes 9 % (20-55); Platelet Estimate Decreased; Segmented Neutrophils 54 % (50-85); Total Cells Counted 100
[2017-01-13] MEDS: PIPERACILLIN/TAZOBACTAM 3,375 MG in SODIUM CHLORIDE 0.9% 100 ML IV SCH ×3 (10:32→21:19)
[2017-01-13] MEDS: IBUPROFEN 400 MG TABLET PO PRN ×2 (15:52→21:19)
[2017-01-13] MEDS: HYDROmorphone 2 MG/1 ML VIAL IV PRN ×2 (15:53→21:19)
[2017-01-13] MEDS: VANCOMYCIN INJ 1,500 MG in SODIUM CHLORIDE 0.9% 500 ML IV SCH (16:08)
[2017-01-14] MEDS: SODIUM CHLORIDE 0.9% 1,000 ML IV SCH ×3 (02:57→21:34)
[2017-01-14] MEDS: LEVOFLOXACIN INJ 250 MG in PREMIX 1 EACH IV SCH (03:35)
[2017-01-14 06:32] LABS: Basophils % 0.4 % (0.0-0.8); Eosinophils # 0.1 10*3/uL (0.0-0.87); Eosinophils % 1.7 % (0.00-10.9); Hematocrit 25.8 VOL% (42.0-52.0); Hemoglobin 8.6 GM/DL (14.0-18.0); Immature Granulocytes % 2.7 %; Immature Granulocytes Absolute 0.13 #; Lymphocytes # 0.2 10*3/uL (1.4-4.0); Lymphocytes % 4.8 % (21.2-54.2); Mean Corpuscular HGB Conc 33.3 GM/DL (32-36); Mean Corpuscular Hemoglobin 29 PG (27-34); Mean Platelet Volume 12.6 FL (9.6-12.0); Monocytes # 0.3 10*3/uL (0.11-0.8); Monocytes % 7.1 % (1.7-12.7); NRBC # 0.02 10*3/uL; Neutrophils % 83.3 % (38.7-73.9); Platelet Count 40 T/CUMM (130-400); Red Cell Distribution Width 16.5 % (9.3-17.3); White Blood Count 4.8 T/CUMM (4-12)
[2017-01-14 06:47] LABS: Albumin 1.9 G/DL (3.4-5.0); Bilirubin,Total 3.4 MG/DL (0.2-1.0); Potassium 4.1 MMOL/L (3.5-5.1); Total Protein 5.7 G/DL (6.4-8.3)
[2017-01-14] MEDS: PIPERACILLIN/TAZOBACTAM 3,375 MG in SODIUM CHLORIDE 0.9% 100 ML IV SCH ×3 (07:09→21:59)
[2017-01-14 07:46] LABS: Band Neutrophils 2 % (0-10); Hypochromasia 2+; Lymphocytes 5 % (20-55); Microcytosis 2+; Platelet Estimate Decreased; Segmented Neutrophils 87 % (50-85); Total Cells Counted 100
[2017-01-14] MEDS ORDERED: GLUCAGON 1 MG VIAL IM PRN (10:21)
[2017-01-14] MEDS ORDERED: DEXTROSE 50% 25 GM/50 ML VIAL IV PRN (10:21)
[2017-01-14] MEDS: INSULIN REGULAR 100 UNIT/ML SUBCUT SCH ×3 (12:08→21:59)
[2017-01-14] MEDS: HYDROmorphone 2 MG/1 ML VIAL IV PRN ×3 (12:14→21:35)
[2017-01-14] MEDS: VANCOMYCIN INJ 1,500 MG in SODIUM CHLORIDE 0.9% 500 ML IV SCH (15:45)
[2017-01-14] MEDS: ONDANSETRON 4 MG/2 ML VIAL IV PRN ×2 (17:21→21:35)
[2017-01-15] MEDS: LEVOFLOXACIN INJ 250 MG in PREMIX 1 EACH IV SCH (03:45)
[2017-01-15] MEDS: SODIUM CHLORIDE 0.9% 1,000 ML IV SCH ×2 (04:32→21:04)
[2017-01-15] MEDS: PIPERACILLIN/TAZOBACTAM 3,375 MG in SODIUM CHLORIDE 0.9% 100 ML IV SCH ×2 (05:38→13:27)
[2017-01-15] MEDS: ONDANSETRON 4 MG/2 ML VIAL IV PRN ×4 (06:23→21:01)
[2017-01-15 06:56] LABS: Basophils % 0.1 % (0.0-0.8); Eosinophils # 0.1 10*3/uL (0.0-0.87); Eosinophils % 1.5 % (0.00-10.9); Immature Granulocytes % 1.4 %; Lymphocytes # 0.7 10*3/uL (1.4-4.0); Lymphocytes % 9.2 % (21.2-54.2); Mean Corpuscular HGB Conc 33.3 GM/DL (32-36); Mean Corpuscular Hemoglobin 28 PG (27-34); Mean Corpuscular Volume 85.2 FL (87-102); Monocytes # 0.5 10*3/uL (0.11-0.8); Monocytes % 7.4 % (1.7-12.7); NRBC # 0.03 10*3/uL; Neutrophils # 5.8 10*3/uL (1.4-7.4); Neutrophils % 80.4 % (38.7-73.9); Red Blood Count 3.17 MC/CUMM (3.8-5.5); Red Cell Distribution Width 16.8 % (9.3-17.3)
[2017-01-15 06:57] LABS: Platelet Count 49 T/CUMM (130-400)
[2017-01-15 06:58] LABS: White Blood Count 7.3 T/CUMM (4-12)
[2017-01-15 07:16] LABS: Burr Cells Slight; Giant Platelets Few; Hypochromasia Slight; Microcytosis 1+; Ovalocytes Slight; Platelet Estimate Decreased
[2017-01-15 07:26] LABS: Albumin 1.8 G/DL (3.4-5.0); Bilirubin,Total 3.4 MG/DL (0.2-1.0); Calcium 6.9 MG/DL (8.5-10.1); Osmolality,Calculated 285.4 MOS/KG (273-304); Potassium 4.2 MMOL/L (3.5-5.1); Total Protein 5.8 G/DL (6.4-8.3)
[2017-01-15] MEDS: INSULIN REGULAR 100 UNIT/ML SUBCUT SCH ×4 (08:18→20:43)
[2017-01-15] MEDS: ASPIRIN EC 81 MG TABLET PO SCH (09:26)
[2017-01-15] MEDS ORDERED: BUPIVACAINE 0.25% 50 ML VIAL ONE (14:10)
[2017-01-15] MEDS ORDERED: VANCOMYCIN INJ 1,500 MG in SODIUM CHLORIDE 0.9% 500 ML IV SCH (16:00)
[2017-01-15] MEDS: HYDROmorphone 2 MG/1 ML VIAL IV PRN (21:02)
[2017-01-15] MEDS: ACETAMINOPHEN 325 MG TABLET PO PRN (21:08)
[2017-01-16] MEDS: SODIUM CHLORIDE 0.9% 1,000 ML IV SCH ×3 (00:18→20:20)
[2017-01-16 06:47] LABS: White Blood Count 9.7 T/CUMM (4-12)
[2017-01-16 06:48] LABS: Basophils % 0.3 % (0.0-0.8); Eosinophils # 0.1 10*3/uL (0.0-0.87); Eosinophils % 1.4 % (0.00-10.9); Hematocrit 26.1 VOL% (42.0-52.0); Hemoglobin 8.6 GM/DL (14.0-18.0); Immature Granulocytes % 3.2 %; Immature Granulocytes Absolute 0.31 #; Lymphocytes # 1.2 10*3/uL (1.4-4.0); Lymphocytes % 12.2 % (21.2-54.2); Mean Corpuscular Hemoglobin 28 PG (27-34); Mean Corpuscular Volume 84.2 FL (87-102); Mean Platelet Volume 12.9 FL (9.6-12.0); Monocytes # 0.6 10*3/uL (0.11-0.8); Monocytes % 6.3 % (1.7-12.7); NRBC # 0.02 10*3/uL; Neutrophils # 7.4 10*3/uL (1.4-7.4); Neutrophils % 76.6 % (38.7-73.9); Platelet Count 64 T/CUMM (130-400); Red Cell Distribution Width 16.9 % (9.3-17.3)
[2017-01-16 07:19] LABS: Band Neutrophils 4 % (0-10); Eosinophils 2 % (0-10); Lymphocytes 11 % (20-55); Platelet Estimate Decreased; Segmented Neutrophils 80 % (50-85); Total Cells Counted 100
[2017-01-16 07:20] LABS: Burr Cells Slight; Giant Platelets Few; Hypochromasia 1+; Microcytosis 1+
[2017-01-16 07:25] LABS: Albumin 1.7 G/DL (3.4-5.0); Bilirubin,Total 3.6 MG/DL (0.2-1.0); Calcium 7.1 MG/DL (8.5-10.1); Osmolality,Calculated 286.2 MOS/KG (273-304); Potassium 3.8 MMOL/L (3.5-5.1); Total Protein 5.9 G/DL (6.4-8.3)
[2017-01-16] MEDS: INSULIN REGULAR 100 UNIT/ML SUBCUT SCH ×4 (08:36→20:21)
[2017-01-16] MEDS: ASPIRIN EC 81 MG TABLET PO SCH (08:37)
[2017-01-16] MEDS ORDERED: SODIUM CHLORIDE 0.9% 250 ML IV PRN (16:01)
[2017-01-16] MEDS ORDERED: PROPOFOL 200 MG/20 ML VIAL IV ONE (16:44)
[2017-01-16] MEDS ORDERED: SEVOFLURANE 1 UNIT/15 MINUTE INH ONE (16:44)
[2017-01-16] MEDS ORDERED: MIDAZOLAM 2 MG/2 ML VIAL ONE (16:45)
[2017-01-16] MEDS ORDERED: fentaNYL 100 MCG/2 ML VIAL ONE (16:45)
[2017-01-16] MEDS ORDERED: ONDANSETRON 4 MG/2 ML VIAL ONE (16:46)
[2017-01-16] MEDS ORDERED: KETOROLAC 30 MG/1 ML VIAL ONE (16:46)
[2017-01-16] MEDS ORDERED: ACETAMINOPHEN 1,000 MG/100 ML VIAL IV ONE (16:46)
[2017-01-16] MEDS ORDERED: ePHEDrine 50 MG/ML AMP ONE (16:46)
[2017-01-16] MEDS ORDERED: DEXTROSE 50% 25 GM/50 ML VIAL IV PRN (22:45)
[2017-01-16] MEDS ORDERED: GLUCAGON 1 MG VIAL IM PRN (22:45)
[2017-01-17] MEDS: SODIUM CHLORIDE 0.9% 1,000 ML IV SCH ×5 (00:51→23:59)
[2017-01-17 06:12] LABS: Basophils % 0.3 % (0.0-0.8); Eosinophils # 0.2 10*3/uL (0.0-0.87); Eosinophils % 1.7 % (0.00-10.9); Hematocrit 25.8 VOL% (42.0-52.0); Hemoglobin 8.6 GM/DL (14.0-18.0); Immature Granulocytes % 5.2 %; Immature Granulocytes Absolute 0.58 #; Lymphocytes # 1.2 10*3/uL (1.4-4.0); Mean Corpuscular HGB Conc 33.3 GM/DL (32-36); Mean Corpuscular Hemoglobin 28 PG (27-34); Mean Corpuscular Volume 83.8 FL (87-102); Mean Platelet Volume 12.1 FL (9.6-12.0); Monocytes # 0.7 10*3/uL (0.11-0.8); NRBC # 0.02 10*3/uL; Neutrophils # 8.5 10*3/uL (1.4-7.4); Neutrophils % 75.8 % (38.7-73.9); Platelet Count 63 T/CUMM (130-400); Red Blood Count 3.08 MC/CUMM (3.8-5.5); Red Cell Distribution Width 16.2 % (9.3-17.3); White Blood Count 11.2 T/CUMM (4-12)
[2017-01-17 06:37] LABS: Albumin 1.6 G/DL (3.4-5.0); Bilirubin,Total 4.1 MG/DL (0.2-1.0); Calcium 7.4 MG/DL (8.5-10.1); Osmolality,Calculated 292.7 MOS/KG (273-304); Potassium 3.9 MMOL/L (3.5-5.1); Total Protein 5.9 G/DL (6.4-8.3)
[2017-01-17 07:36] LABS: Band Neutrophils 2 % (0-10); Eosinophils 2 % (0-10); Giant Platelets Few; Hypochromasia 1+; Lymphocytes 7 % (20-55); Platelet Estimate Decreased; Segmented Neutrophils 82 % (50-85); Total Cells Counted 100
[2017-01-17 07:37] LABS: Microcytosis 1+; Ovalocytes Slight
[2017-01-17] MEDS: SODIUM HYPOCHLORITE 0.25% IRRIG 473 ML BOTTLE TOP SCH (08:00)
[2017-01-17] MEDS: INSULIN REGULAR 100 UNIT/ML SUBCUT SCH ×4 (09:07→21:06)
[2017-01-17] MEDS: ASPIRIN EC 81 MG TABLET PO SCH (09:15)
[2017-01-18 05:10] LABS: Basophils % 0.2 % (0.0-0.8); Eosinophils # 0.3 10*3/uL (0.0-0.87); Eosinophils % 2.1 % (0.00-10.9); Hematocrit 23.1 VOL% (42.0-52.0); Hemoglobin 7.7 GM/DL (14.0-18.0); Immature Granulocytes % 6.4 %; Immature Granulocytes Absolute 0.82 #; Lymphocytes # 1.6 10*3/uL (1.4-4.0); Lymphocytes % 12.6 % (21.2-54.2); Mean Corpuscular HGB Conc 33.3 GM/DL (32-36); Mean Corpuscular Hemoglobin 28 PG (27-34); Mean Corpuscular Volume 83.7 FL (87-102); Mean Platelet Volume 12.9 FL (9.6-12.0); Monocytes # 0.8 10*3/uL (0.11-0.8); Monocytes % 6.1 % (1.7-12.7); NRBC # 0.03 10*3/uL; Neutrophils # 9.3 10*3/uL (1.4-7.4); Neutrophils % 72.6 % (38.7-73.9); Platelet Count 73 T/CUMM (130-400); Red Blood Count 2.76 MC/CUMM (3.8-5.5); Red Cell Distribution Width 17.1 % (9.3-17.3); White Blood Count 12.8 T/CUMM (4-12)
[2017-01-18 05:44] LABS: Albumin 1.6 G/DL (3.4-5.0); Bilirubin,Total 4.1 MG/DL (0.2-1.0); Calcium 6.8 MG/DL (8.5-10.1); Osmolality,Calculated 288.5 MOS/KG (273-304); Potassium 3.8 MMOL/L (3.5-5.1); Total Protein 6.1 G/DL (6.4-8.3)
[2017-01-18 05:46] LABS: Band Neutrophils 5 % (0-10); Eosinophils 1 % (0-10); Hypochromasia 1+; Lymphocytes 12 % (20-55); Segmented Neutrophils 79 % (50-85); Total Cells Counted 100
[2017-01-18 05:47] LABS: Microcytosis 1+; Platelet Estimate Decreased
[2017-01-18] MEDS: SODIUM CHLORIDE 0.9% 1,000 ML IV SCH ×3 (08:53→20:00)
[2017-01-18] MEDS: INSULIN REGULAR 100 UNIT/ML SUBCUT SCH ×4 (09:02→21:04)
[2017-01-18] MEDS: ASPIRIN EC 81 MG TABLET PO SCH (09:37)
[2017-01-18] MEDS: SODIUM HYPOCHLORITE 0.25% IRRIG 473 ML BOTTLE TOP SCH (10:32)
[2017-01-19] MEDS: SODIUM CHLORIDE 0.9% 1,000 ML IV SCH ×4 (04:29→20:48)
[2017-01-19 06:30] LABS: Basophils % 0.3 % (0.0-0.8); Eosinophils # 0.3 10*3/uL (0.0-0.87); Eosinophils % 2.6 % (0.00-10.9); Hematocrit 23.7 VOL% (42.0-52.0); Hemoglobin 7.9 GM/DL (14.0-18.0); Immature Granulocytes % 5.8 %; Immature Granulocytes Absolute 0.66 #; Lymphocytes # 1.4 10*3/uL (1.4-4.0); Mean Corpuscular HGB Conc 33.3 GM/DL (32-36); Mean Corpuscular Hemoglobin 28 PG (27-34); Mean Corpuscular Volume 84.3 FL (87-102); Mean Platelet Volume 12.8 FL (9.6-12.0); Monocytes # 0.7 10*3/uL (0.11-0.8); Monocytes % 6.2 % (1.7-12.7); Neutrophils # 8.3 10*3/uL (1.4-7.4); Neutrophils % 73.1 % (38.7-73.9); Platelet Count 80 T/CUMM (130-400); Red Blood Count 2.81 MC/CUMM (3.8-5.5); Red Cell Distribution Width 16.5 % (9.3-17.3); White Blood Count 11.4 T/CUMM (4-12)
[2017-01-19 06:55] LABS: Hypochromasia 2+; Lymphocytes 7 % (20-55); Microcytosis 2+; Myelocytes 1 %; Platelet Estimate Decreased; Segmented Neutrophils 88 % (50-85); Total Cells Counted 100
[2017-01-19 07:12] LABS: Albumin 1.6 G/DL (3.4-5.0); Bilirubin,Total 2.1 MG/DL (0.2-1.0); Calcium 6.9 MG/DL (8.5-10.1); Osmolality,Calculated 287.4 MOS/KG (273-304); Total Protein 6.5 G/DL (6.4-8.3)
[2017-01-19] MEDS: INSULIN REGULAR 100 UNIT/ML SUBCUT SCH ×4 (08:05→20:44)
[2017-01-19] MEDS: SODIUM HYPOCHLORITE 0.25% IRRIG 473 ML BOTTLE TOP SCH (08:25)
[2017-01-19] MEDS: ASPIRIN EC 81 MG TABLET PO SCH (08:25)
[2017-01-19 09:25] LABS: Basophils % 0.2 % (0.0-0.8); Eosinophils # 0.2 10*3/uL (0.0-0.87); Eosinophils % 2.1 % (0.00-10.9); Hematocrit 22.8 VOL% (42.0-52.0); Hemoglobin 7.6 GM/DL (14.0-18.0); Immature Granulocytes % 6.2 %; Lymphocytes # 1.6 10*3/uL (1.4-4.0); Lymphocytes % 13.6 % (21.2-54.2); Mean Corpuscular HGB Conc 33.3 GM/DL (32-36); Mean Corpuscular Hemoglobin 28 PG (27-34); Mean Corpuscular Volume 84.4 FL (87-102); Mean Platelet Volume 13.3 FL (9.6-12.0); Monocytes # 0.7 10*3/uL (0.11-0.8); Monocytes % 6.3 % (1.7-12.7); Neutrophils # 8.1 10*3/uL (1.4-7.4); Neutrophils % 71.6 % (38.7-73.9); Red Cell Distribution Width 16.8 % (9.3-17.3); White Blood Count 11.4 T/CUMM (4-12)
[2017-01-19 09:26] LABS: Platelet Count 79 T/CUMM (130-400)
[2017-01-19] MEDS ORDERED: fentaNYL 100 MCG/2 ML VIAL ONE (10:22)
[2017-01-19] MEDS ORDERED: PROPOFOL 200 MG/20 ML VIAL IV ONE (10:22)
[2017-01-19] MEDS ORDERED: ONDANSETRON 4 MG/2 ML VIAL ONE (10:23)
[2017-01-19] MEDS ORDERED: KETAMINE 500 MG/10 ML VIAL ONE (10:23)
[2017-01-19] MEDS ORDERED: MIDAZOLAM 2 MG/2 ML VIAL ONE (10:23)
[2017-01-20 03:31] LABS: Basophils % 0.2 % (0.0-0.8); Eosinophils # 0.3 10*3/uL (0.0-0.87); Eosinophils % 2.5 % (0.00-10.9); Hematocrit 22.9 VOL% (42.0-52.0); Hemoglobin 7.6 GM/DL (14.0-18.0); Immature Granulocytes % 4.3 %; Lymphocytes # 1.4 10*3/uL (1.4-4.0); Lymphocytes % 12.4 % (21.2-54.2); Mean Corpuscular HGB Conc 33.2 GM/DL (32-36); Mean Corpuscular Hemoglobin 28 PG (27-34); Mean Corpuscular Volume 84.5 FL (87-102); Mean Platelet Volume 12.9 FL (9.6-12.0); Monocytes # 0.7 10*3/uL (0.11-0.8); Monocytes % 6.4 % (1.7-12.7); Neutrophils # 8.6 10*3/uL (1.4-7.4); Neutrophils % 74.2 % (38.7-73.9); Platelet Count 83 T/CUMM (130-400); Red Blood Count 2.71 MC/CUMM (3.8-5.5); Red Cell Distribution Width 16.5 % (9.3-17.3); White Blood Count 11.6 T/CUMM (4-12)
[2017-01-20 04:02] LABS: Calcium 6.8 MG/DL (8.5-10.1); Osmolality,Calculated 286.4 MOS/KG (273-304); Potassium 3.9 MMOL/L (3.5-5.1)
[2017-01-20 04:13] LABS: Hypochromasia 1+; Platelet Estimate Decreased
[2017-01-20 04:14] LABS: Anisocytosis Slight; Macrocytosis Slight
[2017-01-20] MEDS: INSULIN REGULAR 100 UNIT/ML SUBCUT SCH ×4 (08:20→21:24)
[2017-01-20] MEDS: ASPIRIN EC 81 MG TABLET PO SCH (08:23)
[2017-01-20] MEDS: SODIUM HYPOCHLORITE 0.25% IRRIG 473 ML BOTTLE TOP SCH (13:06)
[2017-01-20] MEDS: SODIUM CHLORIDE 0.9% 1,000 ML IV SCH ×3 (13:07→20:30)
[2017-01-21] MEDS: SODIUM CHLORIDE 0.9% 1,000 ML IV SCH ×2 (05:08→16:19)
[2017-01-21] MEDS: INSULIN REGULAR 100 UNIT/ML SUBCUT SCH ×4 (08:37→21:25)
[2017-01-21] MEDS: ASPIRIN EC 81 MG TABLET PO SCH (09:30)
[2017-01-21] MEDS: SODIUM HYPOCHLORITE 0.25% IRRIG 473 ML BOTTLE TOP SCH (09:30)
[2017-01-22] MEDS: SODIUM CHLORIDE 0.9% 1,000 ML IV SCH ×4 (02:59→21:43)
[2017-01-22 05:49] LABS: Basophils % 0.1 % (0.0-0.8); Eosinophils # 0.3 10*3/uL (0.0-0.87); Eosinophils % 2.8 % (0.00-10.9); Immature Granulocytes % 1.1 %; Lymphocytes # 1.2 10*3/uL (1.4-4.0); Lymphocytes % 12.8 % (21.2-54.2); Mean Corpuscular HGB Conc 32.7 GM/DL (32-36); Mean Corpuscular Hemoglobin 28 PG (27-34); Mean Corpuscular Volume 86.7 FL (87-102); Mean Platelet Volume 13.5 FL (9.6-12.0); Monocytes # 0.6 10*3/uL (0.11-0.8); Monocytes % 6.3 % (1.7-12.7); Neutrophils % 76.9 % (38.7-73.9); Platelet Count 71 T/CUMM (130-400); Red Blood Count 2.26 MC/CUMM (3.8-5.5); Red Cell Distribution Width 16.2 % (9.3-17.3); White Blood Count 9.2 T/CUMM (4-12)
[2017-01-22 06:19] LABS: Hematocrit 19.6 VOL% (42.0-52.0); Hemoglobin 6.4 GM/DL (14.0-18.0)
[2017-01-22 06:21] LABS: Calcium 6.6 MG/DL (8.5-10.1); Potassium 3.8 MMOL/L (3.5-5.1)
[2017-01-22] MEDS ORDERED: SODIUM CHLORIDE 0.9% 1,000 ML IV PRN (06:26)
[2017-01-22 06:44] LABS: Hypochromasia 2+; Microcytosis 1+
[2017-01-22] MEDS: INSULIN REGULAR 100 UNIT/ML SUBCUT SCH ×4 (07:12→20:42)
[2017-01-22] MEDS: ASPIRIN EC 81 MG TABLET PO SCH (09:26)
[2017-01-22] MEDS: SODIUM HYPOCHLORITE 0.25% IRRIG 473 ML BOTTLE TOP SCH (09:26)
[2017-01-22 15:36] LABS: Hemoglobin 8.7 GM/DL (14.0-18.0)
[2017-01-23 09:59] LABS: Basophils % 0.2 % (0.0-0.8); Eosinophils # 0.2 10*3/uL (0.0-0.87); Eosinophils % 2.1 % (0.00-10.9); Hematocrit 26.4 VOL% (42.0-52.0); Hemoglobin 8.7 GM/DL (14.0-18.0); Immature Granulocytes % 0.8 %; Immature Granulocytes Absolute 0.08 #; Lymphocytes # 1.4 10*3/uL (1.4-4.0); Lymphocytes % 12.7 % (21.2-54.2); Mean Corpuscular Hemoglobin 28 PG (27-34); Mean Corpuscular Volume 85.7 FL (87-102); Mean Platelet Volume 13.7 FL (9.6-12.0); Monocytes # 0.7 10*3/uL (0.11-0.8); Monocytes % 6.1 % (1.7-12.7); Neutrophils # 8.3 10*3/uL (1.4-7.4); Neutrophils % 78.1 % (38.7-73.9); Platelet Count 79 T/CUMM (130-400); Red Blood Count 3.08 MC/CUMM (3.8-5.5); Red Cell Distribution Width 16.1 % (9.3-17.3); White Blood Count 10.6 T/CUMM (4-12)
[2017-01-23 11:08] LABS: Hypochromasia 1+
[2017-01-23] MEDS: SODIUM CHLORIDE 0.9% 1,000 ML IV SCH ×3 (11:09→18:16)
[2017-01-23] MEDS: SODIUM HYPOCHLORITE 0.25% IRRIG 473 ML BOTTLE TOP SCH (11:10)
[2017-01-23] MEDS: INSULIN REGULAR 100 UNIT/ML SUBCUT SCH ×4 (11:10→20:50)
[2017-01-23] MEDS: ASPIRIN EC 81 MG TABLET PO SCH (11:10)
[2017-01-23] MEDS: amLODIPine 10 MG TABLET PO SCH (14:41)
[2017-01-23] MEDS ORDERED: MEPERIDINE 25 MG/1 ML VIAL ONE (14:47)
[2017-01-23] MEDS ORDERED: MIDAZOLAM 10 MG/2 ML VIAL ONE ×2 (14:48→16:23)
[2017-01-23] MEDS ORDERED: DEXTROSE 50% 25 GM/50 ML VIAL IV ONE (16:08)
[2017-01-24] MEDS: SODIUM CHLORIDE 0.9% 1,000 ML IV SCH ×4 (05:22→20:33)
[2017-01-24] MEDS ORDERED: hydrALAZINE 25 MG TABLET PO SCH (09:00)
[2017-01-24] MEDS: SODIUM HYPOCHLORITE 0.25% IRRIG 473 ML BOTTLE TOP SCH (09:45)
[2017-01-24] MEDS: ASPIRIN EC 81 MG TABLET PO SCH (09:58)
[2017-01-24] MEDS: amLODIPine 10 MG TABLET PO SCH (09:58)
[2017-01-24] MEDS: INSULIN REGULAR 100 UNIT/ML SUBCUT SCH ×4 (09:59→20:36)
[2017-01-25 05:48] LABS: Basophils % 0.3 % (0.0-0.8); Eosinophils # 0.2 10*3/uL (0.0-0.87); Eosinophils % 3.1 % (0.00-10.9); Hematocrit 24.2 VOL% (42.0-52.0); Hemoglobin 8.2 GM/DL (14.0-18.0); Immature Granulocytes % 0.5 %; Immature Granulocytes Absolute 0.04 #; Lymphocytes # 1.1 10*3/uL (1.4-4.0); Lymphocytes % 14.4 % (21.2-54.2); Mean Corpuscular HGB Conc 33.9 GM/DL (32-36); Mean Corpuscular Hemoglobin 29 PG (27-34); Mean Corpuscular Volume 84.9 FL (87-102); Mean Platelet Volume 13.6 FL (9.6-12.0); Monocytes # 0.6 10*3/uL (0.11-0.8); Monocytes % 7.5 % (1.7-12.7); Neutrophils # 5.7 10*3/uL (1.4-7.4); Neutrophils % 74.2 % (38.7-73.9); Red Blood Count 2.85 MC/CUMM (3.8-5.5); Red Cell Distribution Width 15.3 % (9.3-17.3); White Blood Count 7.6 T/CUMM (4-12)
[2017-01-25] MEDS: SODIUM CHLORIDE 0.9% 1,000 ML IV SCH ×3 (05:48→17:05)
[2017-01-25 06:07] LABS: Platelet Count 73 T/CUMM (130-400)
[2017-01-25 06:20] LABS: Hypochromasia 1+; Microcytosis Slight
[2017-01-25 06:21] LABS: Giant Platelets Few; Platelet Estimate Decreased
[2017-01-25 06:25] LABS: Osmolality,Calculated 282.3 MOS/KG (273-304); Potassium 3.7 MMOL/L (3.5-5.1)
[2017-01-25] MEDS: INSULIN REGULAR 100 UNIT/ML SUBCUT SCH ×4 (10:33→20:28)
[2017-01-25] MEDS: amLODIPine 10 MG TABLET PO SCH (10:39)
[2017-01-25] MEDS: ASPIRIN EC 81 MG TABLET PO SCH (10:39)
[2017-01-25] MEDS: SODIUM HYPOCHLORITE 0.25% IRRIG 473 ML BOTTLE TOP SCH (10:41)
[2017-01-26] MEDS: SODIUM CHLORIDE 0.9% 1,000 ML IV SCH ×4 (01:37→20:19)
[2017-01-26 05:40] LABS: Basophils % 0.6 % (0.0-0.8); Eosinophils # 0.2 10*3/uL (0.0-0.87); Eosinophils % 2.6 % (0.00-10.9); Hematocrit 25.5 VOL% (42.0-52.0); Hemoglobin 8.4 GM/DL (14.0-18.0); Immature Granulocytes % 0.5 %; Immature Granulocytes Absolute 0.03 #; Lymphocytes % 15.5 % (21.2-54.2); Mean Corpuscular HGB Conc 32.9 GM/DL (32-36); Mean Corpuscular Hemoglobin 28 PG (27-34); Mean Corpuscular Volume 85.6 FL (87-102); Mean Platelet Volume 13.1 FL (9.6-12.0); Monocytes # 0.5 10*3/uL (0.11-0.8); Monocytes % 7.2 % (1.7-12.7); Neutrophils # 4.6 10*3/uL (1.4-7.4); Neutrophils % 73.6 % (38.7-73.9); Red Blood Count 2.98 MC/CUMM (3.8-5.5); White Blood Count 6.3 T/CUMM (4-12)
[2017-01-26 05:42] LABS: Platelet Count 71 T/CUMM (130-400)
[2017-01-26 05:57] LABS: Giant Platelets Few; Hypochromasia 1+; Microcytosis Slight; Platelet Estimate Decreased
[2017-01-26 06:23] LABS: Calcium 6.8 MG/DL (8.5-10.1); Magnesium 1.3 MG/DL (1.8-2.4); Osmolality,Calculated 279.4 MOS/KG (273-304); Potassium 3.7 MMOL/L (3.5-5.1)
[2017-01-26] MEDS: ASPIRIN EC 81 MG TABLET PO SCH (09:41)
[2017-01-26] MEDS: INSULIN REGULAR 100 UNIT/ML SUBCUT SCH ×4 (09:41→20:11)
[2017-01-26] MEDS: amLODIPine 10 MG TABLET PO SCH (10:12)
[2017-01-26] MEDS: LISINOPRIL 20 MG TABLET PO SCH (10:12)
[2017-01-26] MEDS: SODIUM HYPOCHLORITE 0.25% IRRIG 473 ML BOTTLE TOP SCH (10:12)
[2017-01-27 03:13] LABS: Basophils % 0.5 % (0.0-0.8); Eosinophils # 0.2 10*3/uL (0.0-0.87); Eosinophils % 2.4 % (0.00-10.9); Hematocrit 23.8 VOL% (42.0-52.0); Hemoglobin 7.8 GM/DL (14.0-18.0); Immature Granulocytes % 0.3 %; Immature Granulocytes Absolute 0.02 #; Lymphocytes # 1.1 10*3/uL (1.4-4.0); Lymphocytes % 17.7 % (21.2-54.2); Mean Corpuscular HGB Conc 32.8 GM/DL (32-36); Mean Corpuscular Hemoglobin 28 PG (27-34); Mean Corpuscular Volume 85.6 FL (87-102); Mean Platelet Volume 13.7 FL (9.6-12.0); Monocytes # 0.5 10*3/uL (0.11-0.8); Monocytes % 7.5 % (1.7-12.7); Neutrophils # 4.4 10*3/uL (1.4-7.4); Neutrophils % 71.6 % (38.7-73.9); Platelet Count 75 T/CUMM (130-400); Red Blood Count 2.78 MC/CUMM (3.8-5.5); White Blood Count 6.2 T/CUMM (4-12)
[2017-01-27 03:38] LABS: Magnesium 1.3 MG/DL (1.8-2.4); Osmolality,Calculated 282.3 MOS/KG (273-304); Potassium 3.6 MMOL/L (3.5-5.1)
[2017-01-27 04:21] LABS: Band Neutrophils 2 % (0-10); Eosinophils 2 % (0-10); Lymphocytes 16 % (20-55); Metamyelocytes 1 %; Myelocytes 2 %; Segmented Neutrophils 77 % (50-85); Total Cells Counted 100
[2017-01-27 04:22] LABS: Anisocytosis 1+; Hypochromasia 1+; Ovalocytes Few; Platelet Estimate Decreased
[2017-01-27] MEDS: SODIUM CHLORIDE 0.9% 1,000 ML IV SCH ×2 (06:47→20:14)
[2017-01-27] MEDS: INSULIN REGULAR 100 UNIT/ML SUBCUT SCH ×4 (08:15→20:06)
[2017-01-27] MEDS: amLODIPine 10 MG TABLET PO SCH (08:54)
[2017-01-27] MEDS: ASPIRIN EC 81 MG TABLET PO SCH (08:54)
[2017-01-27] MEDS: LISINOPRIL 20 MG TABLET PO SCH (08:54)
[2017-01-27] MEDS: SODIUM HYPOCHLORITE 0.25% IRRIG 473 ML BOTTLE TOP SCH (11:06)
[2017-01-28 04:45] LABS: Basophils % 0.7 % (0.0-0.8); Eosinophils # 0.2 10*3/uL (0.0-0.87); Eosinophils % 2.9 % (0.00-10.9); Hematocrit 22.8 VOL% (42.0-52.0); Hemoglobin 7.4 GM/DL (14.0-18.0); Immature Granulocytes % 0.4 %; Immature Granulocytes Absolute 0.02 #; Lymphocytes # 1.1 10*3/uL (1.4-4.0); Lymphocytes % 19.2 % (21.2-54.2); Mean Corpuscular HGB Conc 32.5 GM/DL (32-36); Mean Corpuscular Hemoglobin 28 PG (27-34); Mean Corpuscular Volume 86.7 FL (87-102); Mean Platelet Volume 13.4 FL (9.6-12.0); Monocytes # 0.4 10*3/uL (0.11-0.8); Monocytes % 7.7 % (1.7-12.7); Neutrophils # 3.9 10*3/uL (1.4-7.4); Neutrophils % 69.1 % (38.7-73.9); Red Blood Count 2.63 MC/CUMM (3.8-5.5); Red Cell Distribution Width 15.1 % (9.3-17.3); White Blood Count 5.6 T/CUMM (4-12)
[2017-01-28 04:59] LABS: Platelet Count 69 T/CUMM (130-400)
[2017-01-28 05:12] LABS: Platelet Estimate Decreased
[2017-01-28 05:15] LABS: Calcium 7.1 MG/DL (8.5-10.1); Osmolality,Calculated 283.1 MOS/KG (273-304); Potassium 3.5 MMOL/L (3.5-5.1)
[2017-01-28] MEDS: SODIUM CHLORIDE 0.9% 1,000 ML IV SCH ×2 (05:48→16:19)
[2017-01-28] MEDS: INSULIN REGULAR 100 UNIT/ML SUBCUT SCH ×4 (08:06→20:22)
[2017-01-28] MEDS: amLODIPine 10 MG TABLET PO SCH (09:00)
[2017-01-28] MEDS: LISINOPRIL 20 MG TABLET PO SCH (09:00)
[2017-01-28] MEDS: ASPIRIN EC 81 MG TABLET PO SCH (09:00)
[2017-01-28] MEDS: SODIUM HYPOCHLORITE 0.25% IRRIG 473 ML BOTTLE TOP SCH (11:23)
[2017-01-28] MEDS ORDERED: SODIUM CHLORIDE 0.9% 1,000 ML IV PRN (15:22)
[2017-01-29] MEDS: SODIUM CHLORIDE 0.9% 1,000 ML IV SCH ×3 (02:00→23:16)
[2017-01-29 03:54] LABS: Basophils # 0.1 10*3/uL (0.0-0.2); Basophils % 0.9 % (0.0-0.8); Eosinophils # 0.2 10*3/uL (0.0-0.87); Eosinophils % 2.8 % (0.00-10.9); Hematocrit 27.1 VOL% (42.0-52.0); Hemoglobin 8.9 GM/DL (14.0-18.0); Immature Granulocytes % 0.2 %; Immature Granulocytes Absolute 0.01 #; Lymphocytes # 0.9 10*3/uL (1.4-4.0); Lymphocytes % 16.9 % (21.2-54.2); Mean Corpuscular HGB Conc 32.8 GM/DL (32-36); Mean Corpuscular Hemoglobin 28 PG (27-34); Mean Corpuscular Volume 85.8 FL (87-102); Mean Platelet Volume 13.2 FL (9.6-12.0); Monocytes # 0.4 10*3/uL (0.11-0.8); Monocytes % 6.7 % (1.7-12.7); Neutrophils # 3.9 10*3/uL (1.4-7.4); Neutrophils % 72.5 % (38.7-73.9); Platelet Count 67 T/CUMM (130-400); Red Blood Count 3.16 MC/CUMM (3.8-5.5); Red Cell Distribution Width 14.6 % (9.3-17.3); White Blood Count 5.4 T/CUMM (4-12)
[2017-01-29 04:34] LABS: Calcium 7.1 MG/DL (8.5-10.1); Osmolality,Calculated 282.1 MOS/KG (273-304); Potassium 3.6 MMOL/L (3.5-5.1)
[2017-01-29 05:29] LABS: Eosinophils 2 % (0-10); Giant Platelets Few; Hypochromasia 1+; Lymphocytes 12 % (20-55); Platelet Estimate Decreased; Segmented Neutrophils 81 % (50-85); Total Cells Counted 100
[2017-01-29 05:30] LABS: Microcytosis Slight
[2017-01-29] MEDS: INSULIN REGULAR 100 UNIT/ML SUBCUT SCH ×4 (09:17→22:56)
[2017-01-29] MEDS: CARVEDILOL 6.25 MG TABLET PO SCH ×2 (09:37→23:16)
[2017-01-29] MEDS: ASPIRIN EC 81 MG TABLET PO SCH (09:37)
[2017-01-29] MEDS: amLODIPine 10 MG TABLET PO SCH (09:37)
[2017-01-29] MEDS: LISINOPRIL 20 MG TABLET PO SCH (09:38)
[2017-01-29] MEDS: SODIUM HYPOCHLORITE 0.25% IRRIG 473 ML BOTTLE TOP SCH (10:25)
[2017-01-30] MEDS: INSULIN REGULAR 100 UNIT/ML SUBCUT SCH ×3 (09:16→16:58)
[2017-01-30] MEDS: SODIUM CHLORIDE 0.9% 1,000 ML IV SCH ×2 (10:07→15:40)
[2017-01-30] MEDS: LISINOPRIL 20 MG TABLET PO SCH (10:08)
[2017-01-30] MEDS: amLODIPine 10 MG TABLET PO SCH (10:08)
[2017-01-30] MEDS: SODIUM HYPOCHLORITE 0.25% IRRIG 473 ML BOTTLE TOP SCH (10:09)
[2017-01-30] MEDS: CARVEDILOL 6.25 MG TABLET PO SCH (10:09)
[2017-01-30] MEDS: ASPIRIN EC 81 MG TABLET PO SCH (10:09)
[2017-01-30] MEDS: HYDROmorphone 2 MG/1 ML VIAL IV PRN (10:22)
[2017-01-30] MEDS ORDERED: INFLUENZA VIRUS VACCINE 0.5 ML SYRINGE IM ONE (16:30)
[2017-01-30 16:32] VITALS: BP 147/80
== END 2017-01-30 17:00 | disposition hospice, home (50) | DRG 853 ==
LOC: EDUNIT# → EDBD → N.ED 14:45 → SUATTDRO 15:33 → N.EDINP 15:33 → N.3E 18:25 → N.CC 01-13 03:07 → N.3E 01-14 19:22
PROVIDERS: ADMIT Hospitalist; ATTEND Hospitalist

== ENCOUNTER 2017-02-26 16:52 | Inpatient (IN) ==
[2017-02-26] MEDS ORDERED: DOCUSATE SODIUM 100 MG CAPSULE PO PRN (18:12)
[2017-02-26] MEDS ORDERED: LOPERAMIDE 2 MG CAPSULE PO PRN (18:12)
[2017-02-26] MEDS ORDERED: GLUCAGON 1 MG VIAL IM PRN (18:31)
[2017-02-26] MEDS ORDERED: DEXTROSE 50% 25 GM/50 ML VIAL IV PRN (18:31)
[2017-02-26 19:59] LABS: Basophils % 0.4 % (0.0-0.8); Eosinophils # 0.3 10*3/uL (0.0-0.87); Eosinophils % 4.2 % (0.00-10.9); Hematocrit 24.2 VOL% (42.0-52.0); Hemoglobin 7.9 GM/DL (14.0-18.0); Immature Granulocytes % 0.4 %; Immature Granulocytes Absolute 0.03 #; Lymphocytes # 1.1 10*3/uL (1.4-4.0); Lymphocytes % 15.5 % (21.2-54.2); Mean Corpuscular HGB Conc 32.6 GM/DL (32-36); Mean Corpuscular Hemoglobin 29 PG (27-34); Mean Platelet Volume 15.2 FL (9.6-12.0); Monocytes # 0.7 10*3/uL (0.11-0.8); Monocytes % 9.5 % (1.7-12.7); Neutrophils # 4.9 10*3/uL (1.4-7.4); Red Blood Count 2.72 MC/CUMM (3.8-5.5); Red Cell Distribution Width 15.5 % (9.3-17.3)
[2017-02-26 20:02] LABS: Platelet Count 55 T/CUMM (130-400)
[2017-02-26 20:19] LABS: Platelet Estimate Decreased
[2017-02-26 20:22] LABS: Calcium 8.2 MG/DL (8.5-10.1); Osmolality,Calculated 285.4 MOS/KG (273-304); Potassium 4.6 MMOL/L (3.5-5.1)
[2017-02-26] MEDS: SODIUM CHLORIDE 0.9% 1,000 ML IV SCH (22:00)
[2017-02-26] MEDS: CARVEDILOL 3.125 MG TABLET PO SCH (22:31)
[2017-02-26] MEDS: MORPHINE 2 MG/1 ML SYRINGE IV PRN (22:32)
[2017-02-26] MEDS: CLOTRIMAZOLE 1% CREAM 15 GM TUBE TOP SCH (22:32)
[2017-02-26] MEDS: INSULIN REGULAR 100 UNIT/ML SUBCUT SCH (22:38)
[2017-02-27] MEDS: SODIUM CHLORIDE 0.9% 1,000 ML IV SCH ×2 (06:18→18:29)
[2017-02-27 06:35] LABS: Basophils % 0.5 % (0.0-0.8); Eosinophils # 0.4 10*3/uL (0.0-0.87); Eosinophils % 6.4 % (0.00-10.9); Hematocrit 22.2 VOL% (42.0-52.0); Hemoglobin 7.2 GM/DL (14.0-18.0); Immature Granulocytes % 0.3 %; Immature Granulocytes Absolute 0.02 #; Lymphocytes # 0.8 10*3/uL (1.4-4.0); Lymphocytes % 14.6 % (21.2-54.2); Mean Corpuscular HGB Conc 32.4 GM/DL (32-36); Mean Corpuscular Hemoglobin 29 PG (27-34); Mean Corpuscular Volume 89.9 FL (87-102); Monocytes # 0.6 10*3/uL (0.11-0.8); Monocytes % 9.7 % (1.7-12.7); Neutrophils # 3.9 10*3/uL (1.4-7.4); Neutrophils % 68.5 % (38.7-73.9); Platelet Count 48 T/CUMM (130-400); Red Blood Count 2.47 MC/CUMM (3.8-5.5); Red Cell Distribution Width 15.3 % (9.3-17.3); White Blood Count 5.8 T/CUMM (4-12)
[2017-02-27 07:05] LABS: Calcium 7.7 MG/DL (8.5-10.1); Osmolality,Calculated 288.1 MOS/KG (273-304); Potassium 4.3 MMOL/L (3.5-5.1)
[2017-02-27 07:12] LABS: Hypochromasia 1+; Platelet Estimate Decreased
[2017-02-27 07:13] LABS: Microcytosis Slight
[2017-02-27] MEDS ORDERED: CLINDAMYCIN INJ 900 MG in PREMIX 1 EACH IV ONE (09:00)
[2017-02-27] MEDS: INSULIN REGULAR 100 UNIT/ML SUBCUT SCH ×4 (09:11→22:44)
[2017-02-27] MEDS: sitaGLIPtin 100 MG TABLET PO SCH (09:12)
[2017-02-27] MEDS: PANTOPRAZOLE 40 MG TABLET PO SCH (09:12)
[2017-02-27] MEDS: ASPIRIN EC 81 MG TABLET PO SCH (09:12)
[2017-02-27] MEDS: CARVEDILOL 3.125 MG TABLET PO SCH ×2 (09:12→22:46)
[2017-02-27] MEDS: SKIN HEALING OINT (AQUAPHOR) 50 GM TUBE TOP SCH (09:12)
[2017-02-27] MEDS: amLODIPine 5 MG TABLET PO SCH (09:13)
[2017-02-27] MEDS: CLOTRIMAZOLE 1% CREAM 15 GM TUBE TOP SCH ×2 (09:19→22:46)
[2017-02-27] MEDS ORDERED: LIDOCAINE 1%/EPI INJ 20 ML VIAL ONE (10:23)
[2017-02-27] MEDS: LACTATED RINGERS 1,000 ML IV SCH ×2 (12:30→18:28)
[2017-02-27] MEDS ORDERED: PROPOFOL 200 MG/20 ML VIAL IV ONE (13:01)
[2017-02-27] MEDS ORDERED: KETOROLAC 30 MG/1 ML VIAL ONE (13:02)
[2017-02-27] MEDS ORDERED: DEXAMETHASONE 10 MG/1 ML VIAL ONE (13:02)
[2017-02-27] MEDS ORDERED: SEVOFLURANE 1 UNIT/15 MINUTE INH ONE (13:02)
[2017-02-27] MEDS ORDERED: fentaNYL 100 MCG/2 ML VIAL ONE (13:02)
[2017-02-27] MEDS ORDERED: MIDAZOLAM 2 MG/2 ML VIAL ONE (13:02)
[2017-02-27] MEDS ORDERED: ONDANSETRON 4 MG/2 ML VIAL ONE (13:02)
[2017-02-27] MEDS ORDERED: LACTATED RINGERS 1,000 ML IV ONE (13:02)
[2017-02-27] MEDS ORDERED: DEXTROSE 50% 25 GM/50 ML VIAL IV PRN (14:39)
[2017-02-27] MEDS ORDERED: GLUCAGON 1 MG VIAL IM PRN (14:39)
[2017-02-27 15:11] LABS: ABG Base Excess -13.1 MMOL/L (-2.5-2.5); ABG HCO3 14.1 MMOL/L (20-26); ABG Oxygen Saturation 98.8 % (95-100); ABG PCO2 26.2 MM HG (35-48); ABG PH 7.286 (7.35-7.45); ABG TCO2 11.8 MMOL/L (23-27)
[2017-02-27] MEDS: SODIUM BICARB INJ 50 MEQ in SODIUM CHLORIDE 0.45% 1,000 ML IV SCH (22:00)
[2017-02-28] MEDS: SODIUM BICARB INJ 50 MEQ in SODIUM CHLORIDE 0.45% 1,000 ML IV SCH ×3 (05:32→21:43)
[2017-02-28 06:31] LABS: Hemoglobin 7.5 GM/DL (14.0-18.0); Immature Granulocytes % 0.4 %; Immature Granulocytes Absolute 0.02 #; Lymphocytes # 0.5 10*3/uL (1.4-4.0); Lymphocytes % 10.2 % (21.2-54.2); Mean Corpuscular HGB Conc 34.1 GM/DL (32-36); Mean Corpuscular Hemoglobin 29 PG (27-34); Mean Corpuscular Volume 85.9 FL (87-102); Mean Platelet Volume 14.9 FL (9.6-12.0); Monocytes # 0.2 10*3/uL (0.11-0.8); Monocytes % 4.3 % (1.7-12.7); Neutrophils # 4.2 10*3/uL (1.4-7.4); Neutrophils % 85.1 % (38.7-73.9); Platelet Count 49 T/CUMM (130-400); Red Blood Count 2.56 MC/CUMM (3.8-5.5); Red Cell Distribution Width 14.8 % (9.3-17.3); White Blood Count 4.9 T/CUMM (4-12)
[2017-02-28 06:59] LABS: Burr Cells Slight; Giant Platelets Few; Hypochromasia 1+; Ovalocytes Slight; Platelet Estimate Decreased
[2017-02-28 07:00] LABS: Microcytosis Slight
[2017-02-28 07:05] LABS: Calcium 7.6 MG/DL (8.5-10.1); Osmolality,Calculated 285.5 MOS/KG (273-304); Potassium 4.4 MMOL/L (3.5-5.1)
[2017-02-28] MEDS: INSULIN REGULAR 100 UNIT/ML SUBCUT SCH ×4 (10:11→21:43)
[2017-02-28] MEDS: SODIUM HYPOCHLORITE 0.25% IRRIG 473 ML BOTTLE TOP SCH (10:12)
[2017-02-28] MEDS: amLODIPine 5 MG TABLET PO SCH (10:12)
[2017-02-28] MEDS: ASPIRIN EC 81 MG TABLET PO SCH (10:12)
[2017-02-28] MEDS: sitaGLIPtin 100 MG TABLET PO SCH (10:12)
[2017-02-28] MEDS: CARVEDILOL 3.125 MG TABLET PO SCH ×2 (10:12→20:08)
[2017-02-28] MEDS: PANTOPRAZOLE 40 MG TABLET PO SCH (10:12)
[2017-02-28] MEDS: SKIN HEALING OINT (AQUAPHOR) 50 GM TUBE TOP SCH (10:19)
[2017-02-28] MEDS: CLOTRIMAZOLE 1% CREAM 15 GM TUBE TOP SCH ×2 (10:19→20:09)
[2017-02-28] MEDS ORDERED: SODIUM CHLORIDE 0.9% 1,000 ML IV PRN ×2 (14:39→14:43)
[2017-02-28 16:33] LABS: ABG Base Excess -8.2 MMOL/L (-2.5-2.5); ABG HCO3 17.7 MMOL/L (20-26); ABG Oxygen Saturation 98.5 % (95-100); ABG PCO2 27.3 MM HG (35-48); ABG PH 7.378 (7.35-7.45); ABG TCO2 15.2 MMOL/L (23-27)
[2017-02-28 22:29] LABS: Apearance,Urine CLEAR (Clear); Bacteria,Urine Occasional /HPF (Few); Bilirubin,Urine Negative (Negative); Blood, Urine Small mg/dL (Negative); Glucose,Urine (UA) Negative (Negative); Ketones,Urine Negative (Negative); Mucus,Urine Occasional /LPF (Occasional); Nitrite,Urine Negative (Negative); Protein,Urine 100 MG/DL; RBC,Urine 2 /HPF (0-4); Urine Color Yellow (Yellow); Urine Specific Gravity 1.012 (1.001-1.035); Urine Urobilinogen < 2.0 EU/DL (0.2-1.0); WBC,Urine 1 /HPF (0-6)
[2017-03-01 00:02] LABS: Hematocrit 22.8 VOL% (42.0-52.0); Hemoglobin 7.9 GM/DL (14.0-18.0)
[2017-03-01] MEDS: SODIUM BICARB INJ 50 MEQ in SODIUM CHLORIDE 0.45% 1,000 ML IV SCH ×2 (03:45→05:48)
[2017-03-01 05:59] LABS: Basophils % 0.2 % (0.0-0.8); Eosinophils # 0.1 10*3/uL (0.0-0.87); Eosinophils % 1.2 % (0.00-10.9); Hematocrit 24.2 VOL% (42.0-52.0); Hemoglobin 8.3 GM/DL (14.0-18.0); Immature Granulocytes % 0.3 %; Immature Granulocytes Absolute 0.02 #; Lymphocytes # 1.2 10*3/uL (1.4-4.0); Lymphocytes % 20.4 % (21.2-54.2); Mean Corpuscular HGB Conc 34.3 GM/DL (32-36); Mean Corpuscular Hemoglobin 29 PG (27-34); Mean Corpuscular Volume 85.5 FL (87-102); Mean Platelet Volume 14.7 FL (9.6-12.0); Monocytes # 0.5 10*3/uL (0.11-0.8); Monocytes % 8.7 % (1.7-12.7); Neutrophils # 4.2 10*3/uL (1.4-7.4); Neutrophils % 69.2 % (38.7-73.9); Platelet Count 49 T/CUMM (130-400); Red Blood Count 2.83 MC/CUMM (3.8-5.5); Red Cell Distribution Width 14.6 % (9.3-17.3); White Blood Count 6.1 T/CUMM (4-12)
[2017-03-01 06:26] LABS: Hypochromasia 1+; Microcytosis 1+; Platelet Estimate Decreased
[2017-03-01 06:29] LABS: Calcium 7.6 MG/DL (8.5-10.1); Magnesium 1.4 MG/DL (1.8-2.4); Osmolality,Calculated 287.4 MOS/KG (273-304); Potassium 3.5 MMOL/L (3.5-5.1)
[2017-03-01] MEDS: INSULIN REGULAR 100 UNIT/ML SUBCUT SCH ×4 (07:57→20:56)
[2017-03-01] MEDS: MORPHINE 2 MG/1 ML SYRINGE IV PRN (07:57)
[2017-03-01] MEDS: sitaGLIPtin 100 MG TABLET PO SCH (10:00)
[2017-03-01] MEDS: CARVEDILOL 3.125 MG TABLET PO SCH ×2 (10:00→20:55)
[2017-03-01] MEDS: PANTOPRAZOLE 40 MG TABLET PO SCH (10:00)
[2017-03-01] MEDS ORDERED: MAGNESIUM SULF RIDER 4 GM in PREMIX 1 EACH IV ONE (10:00)
[2017-03-01] MEDS: CLOTRIMAZOLE 1% CREAM 15 GM TUBE TOP SCH ×2 (10:01→20:55)
[2017-03-01] MEDS: SODIUM HYPOCHLORITE 0.25% IRRIG 473 ML BOTTLE TOP SCH (10:01)
[2017-03-01] MEDS: SKIN HEALING OINT (AQUAPHOR) 50 GM TUBE TOP SCH (10:01)
[2017-03-01] MEDS: ASPIRIN EC 81 MG TABLET PO SCH (10:01)
[2017-03-01] MEDS: amLODIPine 5 MG TABLET PO SCH (10:04)
[2017-03-02] MEDS: SODIUM BICARB INJ 50 MEQ in SODIUM CHLORIDE 0.45% 1,000 ML IV SCH ×2 (02:19→12:32)
[2017-03-02 09:49] LABS: ABG HCO3 21.1 MMOL/L (20-26); ABG Oxygen Saturation 97.1 % (95-100); ABG PCO2 31.8 MM HG (35-48); ABG PH 7.406 (7.35-7.45); ABG PO2 83.2 MM HG (80-95); ABG TCO2 18.5 MMOL/L (23-27); Basophils % 0.4 % (0.0-0.8); Eosinophils # 0.4 10*3/uL (0.0-0.87); Eosinophils % 7.4 % (0.00-10.9); Hematocrit 25.1 VOL% (42.0-52.0); Hemoglobin 8.7 GM/DL (14.0-18.0); Immature Granulocytes % 0.4 %; Immature Granulocytes Absolute 0.02 #; Lymphocytes # 0.7 10*3/uL (1.4-4.0); Lymphocytes % 14.7 % (21.2-54.2); Mean Corpuscular HGB Conc 34.7 GM/DL (32-36); Mean Corpuscular Hemoglobin 30 PG (27-34); Mean Corpuscular Volume 85.1 FL (87-102); Mean Platelet Volume 14.3 FL (9.6-12.0); Monocytes # 0.4 10*3/uL (0.11-0.8); Monocytes % 7.4 % (1.7-12.7); Neutrophils # 3.4 10*3/uL (1.4-7.4); Neutrophils % 69.7 % (38.7-73.9); Platelet Count 47 T/CUMM (130-400); Red Blood Count 2.95 MC/CUMM (3.8-5.5); Red Cell Distribution Width 14.6 % (9.3-17.3); White Blood Count 4.8 T/CUMM (4-12)
[2017-03-02 10:07] LABS: Platelet Estimate Decreased
[2017-03-02 10:25] LABS: Calcium 7.7 MG/DL (8.5-10.1); Osmolality,Calculated 287.3 MOS/KG (273-304); Potassium 3.8 MMOL/L (3.5-5.1)
[2017-03-02] MEDS: INSULIN REGULAR 100 UNIT/ML SUBCUT SCH ×4 (11:07→22:18)
[2017-03-02] MEDS: CARVEDILOL 3.125 MG TABLET PO SCH ×2 (11:08→20:57)
[2017-03-02] MEDS: PANTOPRAZOLE 40 MG TABLET PO SCH (11:08)
[2017-03-02] MEDS: amLODIPine 5 MG TABLET PO SCH (11:08)
[2017-03-02] MEDS: ASPIRIN EC 81 MG TABLET PO SCH (11:08)
[2017-03-02] MEDS: sitaGLIPtin 100 MG TABLET PO SCH (11:09)
[2017-03-02] MEDS: CLOTRIMAZOLE 1% CREAM 15 GM TUBE TOP SCH ×2 (11:25→20:57)
[2017-03-02] MEDS: SKIN HEALING OINT (AQUAPHOR) 50 GM TUBE TOP SCH (11:25)
[2017-03-02] MEDS: SODIUM HYPOCHLORITE 0.25% IRRIG 473 ML BOTTLE TOP SCH (11:31)
[2017-03-02] MEDS: CEFTAROLINE 600 MG in SODIUM CHLORIDE 0.9% 50 ML IV SCH ×2 (15:07→20:54)
[2017-03-02] MEDS: LINEZOLID INJ 600 MG in PREMIX 1 EACH IV SCH (16:14)
[2017-03-03] MEDS: SODIUM BICARB INJ 50 MEQ in SODIUM CHLORIDE 0.45% 1,000 ML IV SCH ×4 (02:28→20:00)
[2017-03-03] MEDS: LINEZOLID INJ 600 MG in PREMIX 1 EACH IV SCH ×2 (02:29→15:59)
[2017-03-03] MEDS: CEFTAROLINE 600 MG in SODIUM CHLORIDE 0.9% 50 ML IV SCH ×3 (05:30→21:13)
[2017-03-03] MEDS: ONDANSETRON 4 MG/2 ML VIAL IV PRN (09:05)
[2017-03-03] MEDS: INSULIN REGULAR 100 UNIT/ML SUBCUT SCH ×4 (09:10→22:17)
[2017-03-03] MEDS: PANTOPRAZOLE 40 MG TABLET PO SCH (11:15)
[2017-03-03] MEDS: amLODIPine 5 MG TABLET PO SCH (11:15)
[2017-03-03] MEDS: ASPIRIN EC 81 MG TABLET PO SCH (11:15)
[2017-03-03] MEDS: CARVEDILOL 3.125 MG TABLET PO SCH ×2 (11:16→21:16)
[2017-03-03] MEDS: sitaGLIPtin 100 MG TABLET PO SCH (11:20)
[2017-03-03] MEDS: CLOTRIMAZOLE 1% CREAM 15 GM TUBE TOP SCH ×2 (11:20→21:15)
[2017-03-03] MEDS: SKIN HEALING OINT (AQUAPHOR) 50 GM TUBE TOP SCH (11:24)
[2017-03-03] MEDS: SODIUM HYPOCHLORITE 0.25% IRRIG 473 ML BOTTLE TOP SCH (11:25)
[2017-03-03 12:16] LABS: Basophils % 0.4 % (0.0-0.8); Eosinophils # 0.5 10*3/uL (0.0-0.87); Eosinophils % 9.5 % (0.00-10.9); Hematocrit 23.6 VOL% (42.0-52.0); Hemoglobin 8.1 GM/DL (14.0-18.0); Immature Granulocytes % 0.5 %; Immature Granulocytes Absolute 0.03 #; Lymphocytes # 0.8 10*3/uL (1.4-4.0); Lymphocytes % 13.5 % (21.2-54.2); Mean Corpuscular HGB Conc 34.3 GM/DL (32-36); Mean Corpuscular Hemoglobin 29 PG (27-34); Mean Corpuscular Volume 84.3 FL (87-102); Mean Platelet Volume 13.9 FL (9.6-12.0); Monocytes # 0.3 10*3/uL (0.11-0.8); Monocytes % 5.8 % (1.7-12.7); Neutrophils % 70.3 % (38.7-73.9); Red Cell Distribution Width 14.2 % (9.3-17.3); White Blood Count 5.7 T/CUMM (4-12)
[2017-03-03 12:17] LABS: Platelet Count 49 T/CUMM (130-400)
[2017-03-03 12:52] LABS: Calcium 7.4 MG/DL (8.5-10.1); Osmolality,Calculated 281.5 MOS/KG (273-304); Potassium 3.8 MMOL/L (3.5-5.1)
[2017-03-03 12:54] LABS: ABG Base Excess -1.1 MMOL/L (-2.5-2.5); ABG HCO3 23.5 MMOL/L (20-26); ABG Oxygen Saturation 94.9 % (95-100); ABG PCO2 34.2 MM HG (35-48); ABG PH 7.432 (7.35-7.45); ABG PO2 68.8 MM HG (80-95); ABG TCO2 21.3 MMOL/L (23-27); Allen Test Positive; Pt O2 Delivery Device Room Air
[2017-03-03 13:00] LABS: Giant Platelets Few; Hypochromasia 1+; Microcytosis Slight; Platelet Estimate Decreased
[2017-03-04] MEDS: LINEZOLID INJ 600 MG in PREMIX 1 EACH IV SCH ×2 (03:28→15:31)
[2017-03-04] MEDS: SODIUM BICARB INJ 50 MEQ in SODIUM CHLORIDE 0.45% 1,000 ML IV SCH (03:40)
[2017-03-04] MEDS: ONDANSETRON 4 MG/2 ML VIAL IV PRN (05:42)
[2017-03-04] MEDS: CEFTAROLINE 600 MG in SODIUM CHLORIDE 0.9% 50 ML IV SCH ×3 (05:44→21:26)
[2017-03-04 06:23] LABS: Basophils % 0.2 % (0.0-0.8); Eosinophils # 0.7 10*3/uL (0.0-0.87); Eosinophils % 11.9 % (0.00-10.9); Hematocrit 24.9 VOL% (42.0-52.0); Hemoglobin 8.7 GM/DL (14.0-18.0); Immature Granulocytes % 0.8 %; Immature Granulocytes Absolute 0.05 #; Lymphocytes # 1.1 10*3/uL (1.4-4.0); Lymphocytes % 18.1 % (21.2-54.2); Mean Corpuscular HGB Conc 34.9 GM/DL (32-36); Mean Corpuscular Hemoglobin 29 PG (27-34); Mean Corpuscular Volume 83.6 FL (87-102); Mean Platelet Volume 13.9 FL (9.6-12.0); Monocytes # 0.4 10*3/uL (0.11-0.8); Monocytes % 6.7 % (1.7-12.7); Neutrophils # 3.7 10*3/uL (1.4-7.4); Neutrophils % 62.3 % (38.7-73.9); Red Blood Count 2.98 MC/CUMM (3.8-5.5); Red Cell Distribution Width 14.3 % (9.3-17.3)
[2017-03-04 06:25] LABS: Platelet Count 49 T/CUMM (130-400)
[2017-03-04 06:48] LABS: Eosinophils 10 % (0-10); Lymphocytes 8 % (20-55); Segmented Neutrophils 76 % (50-85); Total Cells Counted 100
[2017-03-04 06:49] LABS: Giant Platelets Few; Hypochromasia 1+; Microcytosis Slight; Platelet Estimate Decreased
[2017-03-04 06:57] LABS: Calcium 7.8 MG/DL (8.5-10.1); Osmolality,Calculated 276.7 MOS/KG (273-304); Potassium 3.5 MMOL/L (3.5-5.1)
[2017-03-04] MEDS: INSULIN REGULAR 100 UNIT/ML SUBCUT SCH ×4 (07:30→23:23)
[2017-03-04 08:59] LABS: ABG Base Excess 1.5 MMOL/L (-2.5-2.5); ABG HCO3 25.8 MMOL/L (20-26); ABG Oxygen Saturation 99.1 % (95-100); ABG PCO2 36.8 MM HG (35-48); ABG PH 7.446 (7.35-7.45); ABG TCO2 22.6 MMOL/L (23-27); Allen Test Positive
[2017-03-04] MEDS: sitaGLIPtin 100 MG TABLET PO SCH (09:35)
[2017-03-04] MEDS: PANTOPRAZOLE 40 MG TABLET PO SCH (09:35)
[2017-03-04] MEDS: amLODIPine 5 MG TABLET PO SCH (09:35)
[2017-03-04] MEDS: SODIUM HYPOCHLORITE 0.25% IRRIG 473 ML BOTTLE TOP SCH (09:36)
[2017-03-04] MEDS: ASPIRIN EC 81 MG TABLET PO SCH (09:36)
[2017-03-04] MEDS: CLOTRIMAZOLE 1% CREAM 15 GM TUBE TOP SCH ×2 (09:36→21:28)
[2017-03-04] MEDS: CARVEDILOL 3.125 MG TABLET PO SCH ×2 (09:36→21:28)
[2017-03-04] MEDS: SKIN HEALING OINT (AQUAPHOR) 50 GM TUBE TOP SCH (09:36)
[2017-03-04] MEDS ORDERED: PROMETHAZINE 25 MG TABLET PO PRN (09:43)
[2017-03-04] MEDS: SODIUM CHLORIDE 0.45% 1,000 ML IV SCH (13:40)
[2017-03-05] MEDS: SODIUM CHLORIDE 0.45% 1,000 ML IV SCH ×2 (02:16→18:32)
[2017-03-05] MEDS: LINEZOLID INJ 600 MG in PREMIX 1 EACH IV SCH ×2 (03:06→15:43)
[2017-03-05] MEDS: CEFTAROLINE 600 MG in SODIUM CHLORIDE 0.9% 50 ML IV SCH ×3 (05:05→21:48)
[2017-03-05 06:42] LABS: Basophils % 0.3 % (0.0-0.8); Eosinophils # 0.7 10*3/uL (0.0-0.87); Eosinophils % 10.4 % (0.00-10.9); Hematocrit 23.6 VOL% (42.0-52.0); Hemoglobin 8.2 GM/DL (14.0-18.0); Immature Granulocytes % 0.5 %; Immature Granulocytes Absolute 0.03 #; Lymphocytes # 1.2 10*3/uL (1.4-4.0); Lymphocytes % 17.7 % (21.2-54.2); Mean Corpuscular HGB Conc 34.7 GM/DL (32-36); Mean Corpuscular Hemoglobin 29 PG (27-34); Mean Corpuscular Volume 84.3 FL (87-102); Mean Platelet Volume 13.3 FL (9.6-12.0); Monocytes # 0.4 10*3/uL (0.11-0.8); Monocytes % 6.5 % (1.7-12.7); Neutrophils # 4.3 10*3/uL (1.4-7.4); Neutrophils % 64.6 % (38.7-73.9); Red Cell Distribution Width 14.1 % (9.3-17.3); White Blood Count 6.7 T/CUMM (4-12)
[2017-03-05 06:51] LABS: Platelet Count 50 T/CUMM (130-400)
[2017-03-05 07:17] LABS: Calcium 7.4 MG/DL (8.5-10.1); Osmolality,Calculated 272.8 MOS/KG (273-304); Potassium 3.5 MMOL/L (3.5-5.1)
[2017-03-05] MEDS: CARVEDILOL 3.125 MG TABLET PO SCH ×2 (09:04→21:49)
[2017-03-05] MEDS: SKIN HEALING OINT (AQUAPHOR) 50 GM TUBE TOP SCH (09:04)
[2017-03-05] MEDS: PANTOPRAZOLE 40 MG TABLET PO SCH (09:05)
[2017-03-05] MEDS: amLODIPine 5 MG TABLET PO SCH (09:05)
[2017-03-05] MEDS: sitaGLIPtin 100 MG TABLET PO SCH (09:05)
[2017-03-05] MEDS: INSULIN REGULAR 100 UNIT/ML SUBCUT SCH ×4 (09:06→21:48)
[2017-03-05] MEDS: ASPIRIN EC 81 MG TABLET PO SCH (09:06)
[2017-03-05] MEDS: SODIUM HYPOCHLORITE 0.25% IRRIG 473 ML BOTTLE TOP SCH (09:07)
[2017-03-05] MEDS: CLOTRIMAZOLE 1% CREAM 15 GM TUBE TOP SCH ×2 (13:53→21:48)
[2017-03-06] MEDS: LINEZOLID INJ 600 MG in PREMIX 1 EACH IV SCH ×2 (02:47→16:57)
[2017-03-06] MEDS: CEFTAROLINE 600 MG in SODIUM CHLORIDE 0.9% 50 ML IV SCH ×3 (04:41→22:31)
[2017-03-06 06:13] LABS: Basophils % 0.2 % (0.0-0.8); Eosinophils # 0.6 10*3/uL (0.0-0.87); Eosinophils % 9.1 % (0.00-10.9); Hematocrit 24.4 VOL% (42.0-52.0); Hemoglobin 8.2 GM/DL (14.0-18.0); Immature Granulocytes % 0.3 %; Immature Granulocytes Absolute 0.02 #; Lymphocytes % 15.6 % (21.2-54.2); Mean Corpuscular HGB Conc 33.6 GM/DL (32-36); Mean Corpuscular Hemoglobin 28 PG (27-34); Mean Corpuscular Volume 84.4 FL (87-102); Monocytes # 0.4 10*3/uL (0.11-0.8); Monocytes % 6.8 % (1.7-12.7); Neutrophils # 4.4 10*3/uL (1.4-7.4); Platelet Count 47 T/CUMM (130-400); Red Blood Count 2.89 MC/CUMM (3.8-5.5); Red Cell Distribution Width 13.8 % (9.3-17.3); White Blood Count 6.5 T/CUMM (4-12)
[2017-03-06 06:15] LABS: Mean Platelet Volume 14.1 FL (9.6-12.0)
[2017-03-06 06:34] LABS: Band Neutrophils 1 % (0-10); Eosinophils 9 % (0-10); Hypochromasia 1+; Lymphocytes 13 % (20-55); Platelet Estimate Decreased; Segmented Neutrophils 69 % (50-85); Total Cells Counted 100
[2017-03-06 06:35] LABS: Microcytosis Slight
[2017-03-06 06:52] LABS: Calcium 7.8 MG/DL (8.5-10.1); Magnesium 1.6 MG/DL (1.8-2.4); Osmolality,Calculated 267.1 MOS/KG (273-304); Potassium 3.3 MMOL/L (3.5-5.1)
[2017-03-06] MEDS: INSULIN REGULAR 100 UNIT/ML SUBCUT SCH ×4 (09:34→22:35)
[2017-03-06] MEDS: ASPIRIN EC 81 MG TABLET PO SCH (09:35)
[2017-03-06] MEDS: CARVEDILOL 3.125 MG TABLET PO SCH ×2 (09:35→22:32)
[2017-03-06] MEDS: sitaGLIPtin 100 MG TABLET PO SCH (09:35)
[2017-03-06] MEDS: amLODIPine 5 MG TABLET PO SCH (09:36)
[2017-03-06] MEDS: PANTOPRAZOLE 40 MG TABLET PO SCH (09:36)
[2017-03-06] MEDS: SODIUM HYPOCHLORITE 0.25% IRRIG 473 ML BOTTLE TOP SCH (09:37)
[2017-03-06] MEDS: CLOTRIMAZOLE 1% CREAM 15 GM TUBE TOP SCH ×2 (09:44→22:35)
[2017-03-06] MEDS: SKIN HEALING OINT (AQUAPHOR) 50 GM TUBE TOP SCH (09:44)
[2017-03-06] MEDS: SODIUM CHLORIDE 0.45% 1,000 ML IV SCH (09:44)
[2017-03-06] MEDS: ONDANSETRON 4 MG/2 ML VIAL IV PRN (09:44)
[2017-03-06] MEDS: MAGNESIUM OXIDE 400 MG TABLET PO SCH ×2 (10:43→22:32)
[2017-03-06] MEDS: POTASSIUM CHLORIDE 20 MEQ TABLET PO SCH ×3 (10:43→16:58)
[2017-03-06] MEDS ORDERED: POTASSIUM CHLORIDE 20 MEQ TABLET PO SCH (17:00)
[2017-03-07] MEDS: LINEZOLID INJ 600 MG in PREMIX 1 EACH IV SCH ×2 (02:55→14:48)
[2017-03-07] MEDS: ONDANSETRON 4 MG/2 ML VIAL IV PRN ×3 (04:07→21:28)
[2017-03-07] MEDS: CEFTAROLINE 600 MG in SODIUM CHLORIDE 0.9% 50 ML IV SCH ×3 (05:12→21:31)
[2017-03-07 05:33] LABS: Basophils % 0.3 % (0.0-0.8); Eosinophils # 0.4 10*3/uL (0.0-0.87); Eosinophils % 5.6 % (0.00-10.9); Hemoglobin 8.4 GM/DL (14.0-18.0); Immature Granulocytes % 0.7 %; Immature Granulocytes Absolute 0.05 #; Lymphocytes % 13.4 % (21.2-54.2); Mean Corpuscular Hemoglobin 29 PG (27-34); Mean Corpuscular Volume 82.5 FL (87-102); Mean Platelet Volume 13.6 FL (9.6-12.0); Monocytes # 0.5 10*3/uL (0.11-0.8); Monocytes % 7.2 % (1.7-12.7); Neutrophils # 5.3 10*3/uL (1.4-7.4); Neutrophils % 72.8 % (38.7-73.9); Red Blood Count 2.91 MC/CUMM (3.8-5.5); Red Cell Distribution Width 13.8 % (9.3-17.3); White Blood Count 7.3 T/CUMM (4-12)
[2017-03-07 05:41] LABS: Platelet Count 48 T/CUMM (130-400)
[2017-03-07 05:52] LABS: Calcium 7.2 MG/DL (8.5-10.1); Magnesium 1.5 MG/DL (1.8-2.4); Osmolality,Calculated 267.2 MOS/KG (273-304); Potassium 3.8 MMOL/L (3.5-5.1)
[2017-03-07 05:55] LABS: Giant Platelets Few; Hypochromasia 1+; Microcytosis Slight; Platelet Estimate Decreased
[2017-03-07] MEDS: INSULIN REGULAR 100 UNIT/ML SUBCUT SCH ×4 (07:41→21:36)
[2017-03-07] MEDS: SODIUM HYPOCHLORITE 0.25% IRRIG 473 ML BOTTLE TOP SCH (09:45)
[2017-03-07] MEDS: sitaGLIPtin 100 MG TABLET PO SCH (09:45)
[2017-03-07] MEDS: MAGNESIUM OXIDE 400 MG TABLET PO SCH ×2 (09:45→21:32)
[2017-03-07] MEDS: CARVEDILOL 3.125 MG TABLET PO SCH ×2 (09:45→21:33)
[2017-03-07] MEDS: PANTOPRAZOLE 40 MG TABLET PO SCH (09:45)
[2017-03-07] MEDS: amLODIPine 5 MG TABLET PO SCH (09:45)
[2017-03-07] MEDS: ASPIRIN EC 81 MG TABLET PO SCH (09:45)
[2017-03-07] MEDS: SKIN HEALING OINT (AQUAPHOR) 50 GM TUBE TOP SCH (09:45)
[2017-03-07] MEDS: SODIUM CHLORIDE 0.45% 1,000 ML IV SCH ×2 (09:46→11:04)
[2017-03-07] MEDS: CLOTRIMAZOLE 1% CREAM 15 GM TUBE TOP SCH ×2 (09:47→21:36)
[2017-03-07] MEDS ORDERED: MAGNESIUM SULF RIDER 4 GM in PREMIX 1 EACH IV ONE (10:00)
[2017-03-08] MEDS: SODIUM CHLORIDE 0.45% 1,000 ML IV SCH ×3 (00:15→12:21)
[2017-03-08] MEDS: LINEZOLID INJ 600 MG in PREMIX 1 EACH IV SCH ×2 (03:14→15:47)
[2017-03-08] MEDS: ONDANSETRON 4 MG/2 ML VIAL IV PRN ×3 (03:17→22:27)
[2017-03-08] MEDS: CEFTAROLINE 600 MG in SODIUM CHLORIDE 0.9% 50 ML IV SCH ×3 (04:41→22:29)
[2017-03-08 07:10] LABS: Basophils % 0.1 % (0.0-0.8); Eosinophils # 0.2 10*3/uL (0.0-0.87); Eosinophils % 2.1 % (0.00-10.9); Hematocrit 25.7 VOL% (42.0-52.0); Immature Granulocytes % 0.5 %; Immature Granulocytes Absolute 0.04 #; Lymphocytes # 0.9 10*3/uL (1.4-4.0); Lymphocytes % 10.1 % (21.2-54.2); Mean Corpuscular Hemoglobin 29 PG (27-34); Mean Corpuscular Volume 81.8 FL (87-102); Mean Platelet Volume 13.9 FL (9.6-12.0); Monocytes # 0.6 10*3/uL (0.11-0.8); Monocytes % 6.7 % (1.7-12.7); Neutrophils # 6.8 10*3/uL (1.4-7.4); Neutrophils % 80.5 % (38.7-73.9); Red Blood Count 3.14 MC/CUMM (3.8-5.5); Red Cell Distribution Width 13.4 % (9.3-17.3); White Blood Count 8.4 T/CUMM (4-12)
[2017-03-08 07:12] LABS: Platelet Count 53 T/CUMM (130-400)
[2017-03-08 07:33] LABS: Calcium 7.6 MG/DL (8.5-10.1); Magnesium 2.1 MG/DL (1.8-2.4); Osmolality,Calculated 254.2 MOS/KG (273-304); Potassium 3.7 MMOL/L (3.5-5.1)
[2017-03-08 07:43] LABS: Platelet Estimate Decreased
[2017-03-08] MEDS: INSULIN REGULAR 100 UNIT/ML SUBCUT SCH ×4 (10:25→22:50)
[2017-03-08] MEDS: ASPIRIN EC 81 MG TABLET PO SCH (10:26)
[2017-03-08] MEDS: amLODIPine 5 MG TABLET PO SCH (10:26)
[2017-03-08] MEDS: CARVEDILOL 3.125 MG TABLET PO SCH ×2 (10:26→22:25)
[2017-03-08] MEDS: MAGNESIUM OXIDE 400 MG TABLET PO SCH ×2 (10:26→22:26)
[2017-03-08] MEDS: PANTOPRAZOLE 40 MG TABLET PO SCH (10:27)
[2017-03-08] MEDS ORDERED: PROMETHAZINE INJ 12.5 MG in SODIUM CHLORIDE 0.9% 50 ML IV PRN (11:01)
[2017-03-08] MEDS ORDERED: PROMETHAZINE 25 MG/1 ML VIAL IM PRN (11:04)
[2017-03-08] MEDS: SODIUM HYPOCHLORITE 0.25% IRRIG 473 ML BOTTLE TOP SCH (14:04)
[2017-03-08] MEDS: SKIN HEALING OINT (AQUAPHOR) 50 GM TUBE TOP SCH (14:04)
[2017-03-08] MEDS: CLOTRIMAZOLE 1% CREAM 15 GM TUBE TOP SCH ×2 (14:09→22:32)
[2017-03-08] MEDS: sitaGLIPtin 100 MG TABLET PO SCH (14:15)
[2017-03-09] MEDS: LINEZOLID INJ 600 MG in PREMIX 1 EACH IV SCH (03:17)
[2017-03-09] MEDS: ONDANSETRON 4 MG/2 ML VIAL IV PRN ×2 (03:21→21:39)
[2017-03-09 03:31] LABS: Basophils % 0.3 % (0.0-0.8); Eosinophils # 0.2 10*3/uL (0.0-0.87); Eosinophils % 3.5 % (0.00-10.9); Hematocrit 23.4 VOL% (42.0-52.0); Hemoglobin 8.3 GM/DL (14.0-18.0); Immature Granulocytes % 0.7 %; Immature Granulocytes Absolute 0.05 #; Lymphocytes # 0.9 10*3/uL (1.4-4.0); Lymphocytes % 13.5 % (21.2-54.2); Mean Corpuscular HGB Conc 35.5 GM/DL (32-36); Mean Corpuscular Hemoglobin 29 PG (27-34); Mean Corpuscular Volume 82.4 FL (87-102); Monocytes # 0.5 10*3/uL (0.11-0.8); Monocytes % 7.5 % (1.7-12.7); Neutrophils # 5.2 10*3/uL (1.4-7.4); Neutrophils % 74.5 % (38.7-73.9); Platelet Count 48 T/CUMM (130-400); Red Blood Count 2.84 MC/CUMM (3.8-5.5); Red Cell Distribution Width 13.3 % (9.3-17.3); White Blood Count 6.9 T/CUMM (4-12)
[2017-03-09 04:02] LABS: Calcium 7.2 MG/DL (8.5-10.1); Magnesium 2.1 MG/DL (1.8-2.4); Osmolality,Calculated 248.5 MOS/KG (273-304); Potassium 3.5 MMOL/L (3.5-5.1)
[2017-03-09 04:29] LABS: Giant Platelets Few; Hypochromasia 1+; Microcytosis Slight; Ovalocytes Slight; Platelet Estimate Decreased
[2017-03-09] MEDS: CEFTAROLINE 600 MG in SODIUM CHLORIDE 0.9% 50 ML IV SCH ×3 (06:25→21:45)
[2017-03-09] MEDS: INSULIN REGULAR 100 UNIT/ML SUBCUT SCH ×4 (10:15→21:43)
[2017-03-09] MEDS: ASPIRIN EC 81 MG TABLET PO SCH (10:16)
[2017-03-09] MEDS: amLODIPine 5 MG TABLET PO SCH (10:17)
[2017-03-09] MEDS: CARVEDILOL 3.125 MG TABLET PO SCH ×2 (10:17→21:38)
[2017-03-09] MEDS: PANTOPRAZOLE 40 MG TABLET PO SCH (10:17)
[2017-03-09] MEDS: MAGNESIUM OXIDE 400 MG TABLET PO SCH ×2 (10:17→21:38)
[2017-03-09] MEDS: SODIUM HYPOCHLORITE 0.25% IRRIG 473 ML BOTTLE TOP SCH (10:18)
[2017-03-09] MEDS: CLOTRIMAZOLE 1% CREAM 15 GM TUBE TOP SCH ×2 (10:18→21:43)
[2017-03-09] MEDS: SKIN HEALING OINT (AQUAPHOR) 50 GM TUBE TOP SCH (10:19)
[2017-03-09] MEDS: sitaGLIPtin 100 MG TABLET PO SCH (12:28)
[2017-03-09] MEDS: SODIUM CHLORIDE 0.45% 1,000 ML IV SCH ×2 (18:23→18:25)
[2017-03-10] MEDS: SODIUM CHLORIDE 0.45% 1,000 ML IV SCH (04:01)
[2017-03-10] MEDS: CEFTAROLINE 600 MG in SODIUM CHLORIDE 0.9% 50 ML IV SCH ×3 (05:05→22:07)
[2017-03-10] MEDS: SKIN HEALING OINT (AQUAPHOR) 50 GM TUBE TOP SCH (08:34)
[2017-03-10] MEDS: CARVEDILOL 3.125 MG TABLET PO SCH ×2 (08:34→22:07)
[2017-03-10] MEDS: amLODIPine 5 MG TABLET PO SCH (08:34)
[2017-03-10] MEDS: PANTOPRAZOLE 40 MG TABLET PO SCH (08:34)
[2017-03-10] MEDS: MAGNESIUM OXIDE 400 MG TABLET PO SCH ×2 (08:34→22:07)
[2017-03-10] MEDS: ASPIRIN EC 81 MG TABLET PO SCH (08:34)
[2017-03-10] MEDS: sitaGLIPtin 100 MG TABLET PO SCH (08:34)
[2017-03-10] MEDS: INSULIN REGULAR 100 UNIT/ML SUBCUT SCH ×4 (08:34→22:08)
[2017-03-10] MEDS: SODIUM HYPOCHLORITE 0.25% IRRIG 473 ML BOTTLE TOP SCH (08:35)
[2017-03-10] MEDS: CLOTRIMAZOLE 1% CREAM 15 GM TUBE TOP SCH ×2 (09:00→22:07)
[2017-03-11] MEDS: CEFTAROLINE 600 MG in SODIUM CHLORIDE 0.9% 50 ML IV SCH ×3 (04:02→21:32)
[2017-03-11 06:12] LABS: Basophils % 0.4 % (0.0-0.8); Eosinophils # 0.3 10*3/uL (0.0-0.87); Eosinophils % 4.7 % (0.00-10.9); Hematocrit 23.1 VOL% (42.0-52.0); Hemoglobin 8.3 GM/DL (14.0-18.0); Immature Granulocytes % 0.4 %; Immature Granulocytes Absolute 0.02 #; Lymphocytes # 0.8 10*3/uL (1.4-4.0); Lymphocytes % 14.4 % (21.2-54.2); Mean Corpuscular HGB Conc 35.9 GM/DL (32-36); Mean Corpuscular Hemoglobin 29 PG (27-34); Mean Corpuscular Volume 81.3 FL (87-102); Monocytes # 0.6 10*3/uL (0.11-0.8); Monocytes % 9.9 % (1.7-12.7); Neutrophils # 3.9 10*3/uL (1.4-7.4); Neutrophils % 70.2 % (38.7-73.9); Red Blood Count 2.84 MC/CUMM (3.8-5.5); Red Cell Distribution Width 13.5 % (9.3-17.3); White Blood Count 5.6 T/CUMM (4-12)
[2017-03-11 06:18] LABS: Platelet Count 35 T/CUMM (130-400)
[2017-03-11 06:42] LABS: Calcium 7.3 MG/DL (8.5-10.1); Osmolality,Calculated 249.5 MOS/KG (273-304); Potassium 3.7 MMOL/L (3.5-5.1)
[2017-03-11 07:18] LABS: Band Neutrophils 2 % (0-10); Eosinophils 3 % (0-10); Lymphocytes 24 % (20-55); Platelet Estimate Decreased; Segmented Neutrophils 67 % (50-85); Total Cells Counted 100
[2017-03-11] MEDS ORDERED: SODIUM CHLORIDE 0.9% 1,000 ML IV PRN (07:20)
[2017-03-11] MEDS: INSULIN REGULAR 100 UNIT/ML SUBCUT SCH ×4 (08:34→21:31)
[2017-03-11] MEDS: SKIN HEALING OINT (AQUAPHOR) 50 GM TUBE TOP SCH (09:05)
[2017-03-11] MEDS: SODIUM HYPOCHLORITE 0.25% IRRIG 473 ML BOTTLE TOP SCH (09:05)
[2017-03-11] MEDS: SODIUM CHLORIDE 0.9% 1,000 ML IV SCH ×2 (09:56→19:30)
[2017-03-11] MEDS: MAGNESIUM OXIDE 400 MG TABLET PO SCH ×2 (09:59→21:33)
[2017-03-11] MEDS: PANTOPRAZOLE 40 MG TABLET PO SCH (09:59)
[2017-03-11] MEDS: sitaGLIPtin 100 MG TABLET PO SCH (09:59)
[2017-03-11] MEDS: CARVEDILOL 3.125 MG TABLET PO SCH ×2 (09:59→21:34)
[2017-03-11] MEDS: amLODIPine 5 MG TABLET PO SCH (09:59)
[2017-03-11] MEDS: ASPIRIN EC 81 MG TABLET PO SCH (10:00)
[2017-03-11] MEDS: CLOTRIMAZOLE 1% CREAM 15 GM TUBE TOP SCH ×2 (10:01→21:34)
[2017-03-12] MEDS: CEFTAROLINE 600 MG in SODIUM CHLORIDE 0.9% 50 ML IV SCH ×3 (05:04→22:02)
[2017-03-12 05:27] LABS: Basophils % 0.3 % (0.0-0.8); Eosinophils # 0.3 10*3/uL (0.0-0.87); Eosinophils % 4.7 % (0.00-10.9); Hematocrit 24.6 VOL% (42.0-52.0); Hemoglobin 8.5 GM/DL (14.0-18.0); Immature Granulocytes % 0.5 %; Immature Granulocytes Absolute 0.03 #; Lymphocytes # 1.1 10*3/uL (1.4-4.0); Lymphocytes % 17.2 % (21.2-54.2); Mean Corpuscular HGB Conc 34.6 GM/DL (32-36); Mean Corpuscular Hemoglobin 29 PG (27-34); Mean Corpuscular Volume 83.4 FL (87-102); Mean Platelet Volume 13.1 FL (9.6-12.0); Monocytes # 0.6 10*3/uL (0.11-0.8); Monocytes % 10.2 % (1.7-12.7); Neutrophils # 4.1 10*3/uL (1.4-7.4); Neutrophils % 67.1 % (38.7-73.9); Platelet Count 51 T/CUMM (130-400); Red Blood Count 2.95 MC/CUMM (3.8-5.5); Red Cell Distribution Width 13.8 % (9.3-17.3); White Blood Count 6.2 T/CUMM (4-12)
[2017-03-12 06:04] LABS: Calcium 7.5 MG/DL (8.5-10.1); Magnesium 2.2 MG/DL (1.8-2.4); Osmolality,Calculated 261.7 MOS/KG (273-304); Potassium 3.9 MMOL/L (3.5-5.1)
[2017-03-12 07:40] LABS: Platelet Estimate Decreased
[2017-03-12] MEDS: SODIUM CHLORIDE 0.9% 1,000 ML IV SCH ×2 (08:20→17:02)
[2017-03-12] MEDS: INSULIN REGULAR 100 UNIT/ML SUBCUT SCH ×4 (08:30→21:25)
[2017-03-12] MEDS: CARVEDILOL 3.125 MG TABLET PO SCH ×2 (10:39→22:00)
[2017-03-12] MEDS: SKIN HEALING OINT (AQUAPHOR) 50 GM TUBE TOP SCH (10:39)
[2017-03-12] MEDS: ASPIRIN EC 81 MG TABLET PO SCH (10:39)
[2017-03-12] MEDS: CLOTRIMAZOLE 1% CREAM 15 GM TUBE TOP SCH ×2 (10:40→22:01)
[2017-03-12] MEDS: sitaGLIPtin 100 MG TABLET PO SCH (10:40)
[2017-03-12] MEDS: SODIUM HYPOCHLORITE 0.25% IRRIG 473 ML BOTTLE TOP SCH (10:40)
[2017-03-12] MEDS: MAGNESIUM OXIDE 400 MG TABLET PO SCH ×2 (10:40→22:00)
[2017-03-12] MEDS: amLODIPine 5 MG TABLET PO SCH (10:41)
[2017-03-12] MEDS: PANTOPRAZOLE 40 MG TABLET PO SCH (10:41)
[2017-03-13] MEDS: SODIUM CHLORIDE 0.9% 1,000 ML IV SCH (02:06)
[2017-03-13] MEDS: CEFTAROLINE 600 MG in SODIUM CHLORIDE 0.9% 50 ML IV SCH (05:25)
[2017-03-13 07:32] LABS: Basophils % 0.5 % (0.0-0.8); Eosinophils # 0.4 10*3/uL (0.0-0.87); Eosinophils % 7.5 % (0.00-10.9); Hematocrit 23.3 VOL% (42.0-52.0); Hemoglobin 7.8 GM/DL (14.0-18.0); Immature Granulocytes % 0.5 %; Immature Granulocytes Absolute 0.03 #; Lymphocytes # 1.3 10*3/uL (1.4-4.0); Lymphocytes % 22.1 % (21.2-54.2); Mean Corpuscular HGB Conc 33.5 GM/DL (32-36); Mean Corpuscular Hemoglobin 29 PG (27-34); Mean Corpuscular Volume 86.6 FL (87-102); Mean Platelet Volume 13.1 FL (9.6-12.0); Monocytes # 0.6 10*3/uL (0.11-0.8); Monocytes % 10.7 % (1.7-12.7); Neutrophils # 3.4 10*3/uL (1.4-7.4); Neutrophils % 58.7 % (38.7-73.9); Platelet Count 48 T/CUMM (130-400); Red Blood Count 2.69 MC/CUMM (3.8-5.5); Red Cell Distribution Width 14.5 % (9.3-17.3); White Blood Count 5.7 T/CUMM (4-12)
[2017-03-13 08:10] LABS: Osmolality,Calculated 276.7 MOS/KG (273-304); Potassium 3.8 MMOL/L (3.5-5.1)
[2017-03-13 08:16] LABS: Platelet Estimate Decreased
[2017-03-13] MEDS: INSULIN REGULAR 100 UNIT/ML SUBCUT SCH ×4 (09:24→22:06)
[2017-03-13] MEDS: ASPIRIN EC 81 MG TABLET PO SCH (09:26)
[2017-03-13] MEDS: SODIUM HYPOCHLORITE 0.25% IRRIG 473 ML BOTTLE TOP SCH (09:27)
[2017-03-13] MEDS: CARVEDILOL 3.125 MG TABLET PO SCH ×2 (09:27→22:05)
[2017-03-13] MEDS: SKIN HEALING OINT (AQUAPHOR) 50 GM TUBE TOP SCH (09:27)
[2017-03-13] MEDS: CLOTRIMAZOLE 1% CREAM 15 GM TUBE TOP SCH ×2 (09:28→22:06)
[2017-03-13] MEDS: MAGNESIUM OXIDE 400 MG TABLET PO SCH ×2 (09:28→22:04)
[2017-03-13] MEDS: sitaGLIPtin 100 MG TABLET PO SCH (09:28)
[2017-03-13] MEDS: PANTOPRAZOLE 40 MG TABLET PO SCH (09:29)
[2017-03-13] MEDS ORDERED: hydrALAZINE 25 MG TABLET ONE ×2 (10:56→15:14)
[2017-03-13] MEDS: amLODIPine 5 MG TABLET PO SCH (11:06)
[2017-03-13] MEDS: CEFTAROLINE 600 MG in SODIUM CHLORIDE 0.9% 100 ML IV SCH ×2 (13:44→22:06)
[2017-03-14] MEDS: INSULIN REGULAR 100 UNIT/ML SUBCUT SCH ×4 (07:41→21:42)
[2017-03-14] MEDS: CEFTAROLINE 600 MG in SODIUM CHLORIDE 0.9% 100 ML IV SCH ×3 (07:50→21:42)
[2017-03-14] MEDS: CARVEDILOL 3.125 MG TABLET PO SCH ×2 (09:38→21:42)
[2017-03-14] MEDS: ASPIRIN EC 81 MG TABLET PO SCH (09:38)
[2017-03-14] MEDS: amLODIPine 5 MG TABLET PO SCH (09:38)
[2017-03-14] MEDS: sitaGLIPtin 100 MG TABLET PO SCH (09:38)
[2017-03-14] MEDS: MAGNESIUM OXIDE 400 MG TABLET PO SCH ×2 (09:38→21:42)
[2017-03-14] MEDS: SODIUM HYPOCHLORITE 0.25% IRRIG 473 ML BOTTLE TOP SCH (09:39)
[2017-03-14] MEDS: PANTOPRAZOLE 40 MG TABLET PO SCH (09:39)
[2017-03-14] MEDS: SKIN HEALING OINT (AQUAPHOR) 50 GM TUBE TOP SCH (09:39)
[2017-03-14] MEDS: CLOTRIMAZOLE 1% CREAM 15 GM TUBE TOP SCH ×2 (09:39→21:43)
[2017-03-15] MEDS: CEFTAROLINE 600 MG in SODIUM CHLORIDE 0.9% 100 ML IV SCH ×3 (04:46→21:36)
[2017-03-15 06:28] LABS: Calcium 7.5 MG/DL (8.5-10.1); Osmolality,Calculated 280.4 MOS/KG (273-304); Potassium 3.9 MMOL/L (3.5-5.1)
[2017-03-15] MEDS: MAGNESIUM OXIDE 400 MG TABLET PO SCH ×2 (09:41→21:36)
[2017-03-15] MEDS: PANTOPRAZOLE 40 MG TABLET PO SCH (09:41)
[2017-03-15] MEDS: INSULIN REGULAR 100 UNIT/ML SUBCUT SCH ×4 (09:42→21:37)
[2017-03-15] MEDS: SODIUM HYPOCHLORITE 0.25% IRRIG 473 ML BOTTLE TOP SCH (09:42)
[2017-03-15] MEDS: ASPIRIN EC 81 MG TABLET PO SCH (09:42)
[2017-03-15] MEDS: CARVEDILOL 3.125 MG TABLET PO SCH ×2 (09:42→21:35)
[2017-03-15] MEDS: CLOTRIMAZOLE 1% CREAM 15 GM TUBE TOP SCH ×2 (09:42→21:36)
[2017-03-15] MEDS: SKIN HEALING OINT (AQUAPHOR) 50 GM TUBE TOP SCH (09:42)
[2017-03-15] MEDS: sitaGLIPtin 100 MG TABLET PO SCH (09:42)
[2017-03-15] MEDS: amLODIPine 5 MG TABLET PO SCH (10:46)
[2017-03-16] MEDS: CEFTAROLINE 600 MG in SODIUM CHLORIDE 0.9% 100 ML IV SCH ×3 (05:51→21:39)
[2017-03-16] MEDS: INSULIN REGULAR 100 UNIT/ML SUBCUT SCH ×4 (09:21→21:44)
[2017-03-16] MEDS: MAGNESIUM OXIDE 400 MG TABLET PO SCH ×2 (09:38→21:38)
[2017-03-16] MEDS: ASPIRIN EC 81 MG TABLET PO SCH (09:38)
[2017-03-16] MEDS: sitaGLIPtin 100 MG TABLET PO SCH (09:38)
[2017-03-16] MEDS: amLODIPine 5 MG TABLET PO SCH (09:38)
[2017-03-16] MEDS: CARVEDILOL 3.125 MG TABLET PO SCH ×2 (09:38→21:38)
[2017-03-16] MEDS: PANTOPRAZOLE 40 MG TABLET PO SCH (09:38)
[2017-03-16] MEDS: CLOTRIMAZOLE 1% CREAM 15 GM TUBE TOP SCH ×2 (09:40→21:43)
[2017-03-16] MEDS: SODIUM HYPOCHLORITE 0.25% IRRIG 473 ML BOTTLE TOP SCH (09:40)
[2017-03-16] MEDS: SKIN HEALING OINT (AQUAPHOR) 50 GM TUBE TOP SCH (09:40)
[2017-03-17 05:53] LABS: Basophils % 0.4 % (0.0-0.8); Eosinophils # 0.6 10*3/uL (0.0-0.87); Eosinophils % 11.6 % (0.00-10.9); Hematocrit 22.9 VOL% (42.0-52.0); Hemoglobin 7.7 GM/DL (14.0-18.0); Immature Granulocytes % 0.4 %; Immature Granulocytes Absolute 0.02 #; Lymphocytes # 1.3 10*3/uL (1.4-4.0); Lymphocytes % 28.1 % (21.2-54.2); Mean Corpuscular HGB Conc 33.6 GM/DL (32-36); Mean Corpuscular Hemoglobin 29 PG (27-34); Mean Corpuscular Volume 86.7 FL (87-102); Mean Platelet Volume 13.4 FL (9.6-12.0); Monocytes # 0.4 10*3/uL (0.11-0.8); Monocytes % 8.9 % (1.7-12.7); Neutrophils # 2.4 10*3/uL (1.4-7.4); Neutrophils % 50.6 % (38.7-73.9); Red Blood Count 2.64 MC/CUMM (3.8-5.5); Red Cell Distribution Width 14.9 % (9.3-17.3); White Blood Count 4.7 T/CUMM (4-12)
[2017-03-17 06:04] LABS: Platelet Count 60 T/CUMM (130-400)
[2017-03-17] MEDS: CEFTAROLINE 600 MG in SODIUM CHLORIDE 0.9% 100 ML IV SCH ×3 (06:13→21:12)
[2017-03-17 07:03] LABS: Eosinophils 12 % (0-10); Lymphocytes 23 % (20-55); Segmented Neutrophils 58 % (50-85); Total Cells Counted 100
[2017-03-17 07:04] LABS: Hypochromasia 1+; Microcytosis 1+; Platelet Estimate Decreased
[2017-03-17] MEDS: INSULIN REGULAR 100 UNIT/ML SUBCUT SCH ×3 (07:45→16:00)
[2017-03-17] MEDS: SKIN HEALING OINT (AQUAPHOR) 50 GM TUBE TOP SCH (08:15)
[2017-03-17] MEDS: CLOTRIMAZOLE 1% CREAM 15 GM TUBE TOP SCH ×2 (08:15→20:45)
[2017-03-17] MEDS: sitaGLIPtin 100 MG TABLET PO SCH (10:45)
[2017-03-17] MEDS: CARVEDILOL 3.125 MG TABLET PO SCH ×2 (10:45→20:40)
[2017-03-17] MEDS: MAGNESIUM OXIDE 400 MG TABLET PO SCH ×2 (10:45→20:40)
[2017-03-17] MEDS: amLODIPine 5 MG TABLET PO SCH (10:45)
[2017-03-17] MEDS: PANTOPRAZOLE 40 MG TABLET PO SCH (10:45)
[2017-03-17] MEDS: ASPIRIN EC 81 MG TABLET PO SCH (10:45)
[2017-03-17] MEDS: SODIUM HYPOCHLORITE 0.25% IRRIG 473 ML BOTTLE TOP SCH (11:03)
[2017-03-18] MEDS: INSULIN REGULAR 100 UNIT/ML SUBCUT SCH ×5 (00:46→22:25)
[2017-03-18] MEDS: CEFTAROLINE 600 MG in SODIUM CHLORIDE 0.9% 100 ML IV SCH ×3 (06:54→22:22)
[2017-03-18] MEDS: ASPIRIN EC 81 MG TABLET PO SCH (09:38)
[2017-03-18] MEDS: MAGNESIUM OXIDE 400 MG TABLET PO SCH ×2 (09:38→22:20)
[2017-03-18] MEDS: amLODIPine 5 MG TABLET PO SCH (09:38)
[2017-03-18] MEDS: SKIN HEALING OINT (AQUAPHOR) 50 GM TUBE TOP SCH (09:39)
[2017-03-18] MEDS: PANTOPRAZOLE 40 MG TABLET PO SCH (09:39)
[2017-03-18] MEDS: sitaGLIPtin 100 MG TABLET PO SCH (09:39)
[2017-03-18] MEDS: CLOTRIMAZOLE 1% CREAM 15 GM TUBE TOP SCH ×2 (09:39→22:25)
[2017-03-18] MEDS: SODIUM HYPOCHLORITE 0.25% IRRIG 473 ML BOTTLE TOP SCH (09:39)
[2017-03-18] MEDS: CARVEDILOL 3.125 MG TABLET PO SCH ×2 (09:39→22:22)
[2017-03-19 02:31] LABS: Basophils % 0.5 % (0.0-0.8); Eosinophils # 0.7 10*3/uL (0.0-0.87); Eosinophils % 11.3 % (0.00-10.9); Hematocrit 24.3 VOL% (42.0-52.0); Hemoglobin 7.9 GM/DL (14.0-18.0); Immature Granulocytes % 0.5 %; Immature Granulocytes Absolute 0.03 #; Lymphocytes # 1.3 10*3/uL (1.4-4.0); Lymphocytes % 22.8 % (21.2-54.2); Mean Corpuscular HGB Conc 32.5 GM/DL (32-36); Mean Corpuscular Hemoglobin 29 PG (27-34); Mean Platelet Volume 13.5 FL (9.6-12.0); Monocytes # 0.6 10*3/uL (0.11-0.8); Monocytes % 9.4 % (1.7-12.7); Neutrophils # 3.2 10*3/uL (1.4-7.4); Neutrophils % 55.5 % (38.7-73.9); Red Blood Count 2.76 MC/CUMM (3.8-5.5); Red Cell Distribution Width 14.5 % (9.3-17.3); White Blood Count 5.8 T/CUMM (4-12)
[2017-03-19 02:51] LABS: Platelet Count 68 T/CUMM (130-400)
[2017-03-19 03:04] LABS: Calcium 7.6 MG/DL (8.5-10.1); Osmolality,Calculated 283.3 MOS/KG (273-304)
[2017-03-19 03:05] LABS: Potassium 4.3 MMOL/L (3.5-5.1)
[2017-03-19 05:01] LABS: Eosinophils 10 % (0-10); Lymphocytes 16 % (20-55); Metamyelocytes 1 %; Segmented Neutrophils 68 % (50-85)
[2017-03-19 05:02] LABS: Anisocytosis 1+; Hypochromasia 1+; Microcytosis 1+; Platelet Estimate Decreased
[2017-03-19 05:03] LABS: Total Cells Counted 100
[2017-03-19] MEDS: CEFTAROLINE 600 MG in SODIUM CHLORIDE 0.9% 100 ML IV SCH ×3 (05:16→21:51)
[2017-03-19] MEDS: INSULIN REGULAR 100 UNIT/ML SUBCUT SCH ×4 (07:55→20:54)
[2017-03-19] MEDS: amLODIPine 5 MG TABLET PO SCH ×2 (08:29→09:47)
[2017-03-19] MEDS: CARVEDILOL 3.125 MG TABLET PO SCH ×2 (08:29→20:52)
[2017-03-19] MEDS: sitaGLIPtin 100 MG TABLET PO SCH (08:29)
[2017-03-19] MEDS: CLOTRIMAZOLE 1% CREAM 15 GM TUBE TOP SCH ×2 (08:29→20:53)
[2017-03-19] MEDS: MAGNESIUM OXIDE 400 MG TABLET PO SCH ×2 (08:29→20:52)
[2017-03-19] MEDS: ASPIRIN EC 81 MG TABLET PO SCH (08:29)
[2017-03-19] MEDS: PANTOPRAZOLE 40 MG TABLET PO SCH (08:29)
[2017-03-19] MEDS: SKIN HEALING OINT (AQUAPHOR) 50 GM TUBE TOP SCH (08:29)
[2017-03-19] MEDS: SODIUM HYPOCHLORITE 0.25% IRRIG 473 ML BOTTLE TOP SCH (14:54)
[2017-03-20] MEDS: CEFTAROLINE 600 MG in SODIUM CHLORIDE 0.9% 100 ML IV SCH ×3 (06:15→20:09)
[2017-03-20 06:26] LABS: Basophils % 0.7 % (0.0-0.8); Eosinophils # 0.6 10*3/uL (0.0-0.87); Eosinophils % 13.3 % (0.00-10.9); Hematocrit 24.6 VOL% (42.0-52.0); Hemoglobin 7.7 GM/DL (14.0-18.0); Immature Granulocytes % 0.4 %; Immature Granulocytes Absolute 0.02 #; Lymphocytes # 1.2 10*3/uL (1.4-4.0); Lymphocytes % 26.2 % (21.2-54.2); Mean Corpuscular HGB Conc 31.3 GM/DL (32-36); Mean Corpuscular Hemoglobin 28 PG (27-34); Mean Corpuscular Volume 90.8 FL (87-102); Mean Platelet Volume 14.6 FL (9.6-12.0); Monocytes # 0.4 10*3/uL (0.11-0.8); Monocytes % 8.2 % (1.7-12.7); Neutrophils # 2.3 10*3/uL (1.4-7.4); Neutrophils % 51.2 % (38.7-73.9); Platelet Count 63 T/CUMM (130-400); Red Blood Count 2.71 MC/CUMM (3.8-5.5); Red Cell Distribution Width 14.7 % (9.3-17.3); White Blood Count 4.5 T/CUMM (4-12)
[2017-03-20 06:49] LABS: Eosinophils 9 % (0-10); Hypochromasia 2+; Lymphocytes 23 % (20-55); Microcytosis 2+; Platelet Estimate Decreased; Segmented Neutrophils 55 % (50-85); Total Cells Counted 100
[2017-03-20] MEDS: INSULIN REGULAR 100 UNIT/ML SUBCUT SCH ×4 (08:07→21:04)
[2017-03-20] MEDS: ASPIRIN EC 81 MG TABLET PO SCH (08:40)
[2017-03-20] MEDS: MAGNESIUM OXIDE 400 MG TABLET PO SCH ×2 (08:40→20:12)
[2017-03-20] MEDS: amLODIPine 5 MG TABLET PO SCH (08:40)
[2017-03-20] MEDS: CARVEDILOL 3.125 MG TABLET PO SCH ×2 (08:40→20:12)
[2017-03-20] MEDS: SKIN HEALING OINT (AQUAPHOR) 50 GM TUBE TOP SCH (08:40)
[2017-03-20] MEDS: PANTOPRAZOLE 40 MG TABLET PO SCH (08:40)
[2017-03-20] MEDS: CLOTRIMAZOLE 1% CREAM 15 GM TUBE TOP SCH ×2 (08:40→20:12)
[2017-03-20] MEDS: sitaGLIPtin 100 MG TABLET PO SCH (08:40)
[2017-03-20] MEDS ORDERED: diphenhydrAMINE 50 MG/1 ML VIAL IV PRN (09:59)
[2017-03-20] MEDS ORDERED: ACETAMINOPHEN 325 MG TABLET PO PRN (09:59)
[2017-03-20] MEDS ORDERED: SODIUM CHLORIDE 0.9% 1,000 ML IV PRN (09:59)
[2017-03-20] MEDS: SODIUM HYPOCHLORITE 0.25% IRRIG 473 ML BOTTLE TOP SCH (11:54)
[2017-03-20 20:12] LABS: Hemoglobin 9.8 GM/DL (14.0-18.0)
[2017-03-21] MEDS: CEFTAROLINE 600 MG in SODIUM CHLORIDE 0.9% 100 ML IV SCH ×3 (05:32→21:55)
[2017-03-21] MEDS: INSULIN REGULAR 100 UNIT/ML SUBCUT SCH ×4 (07:45→22:16)
[2017-03-21] MEDS: SODIUM HYPOCHLORITE 0.25% IRRIG 473 ML BOTTLE TOP SCH (08:00)
[2017-03-21] MEDS: SKIN HEALING OINT (AQUAPHOR) 50 GM TUBE TOP SCH (08:00)
[2017-03-21] MEDS: CLOTRIMAZOLE 1% CREAM 15 GM TUBE TOP SCH ×2 (08:00→22:20)
[2017-03-21] MEDS: PANTOPRAZOLE 40 MG TABLET PO SCH (10:35)
[2017-03-21] MEDS: ASPIRIN EC 81 MG TABLET PO SCH (10:36)
[2017-03-21] MEDS: amLODIPine 5 MG TABLET PO SCH (10:36)
[2017-03-21] MEDS: sitaGLIPtin 100 MG TABLET PO SCH (10:36)
[2017-03-21] MEDS: MAGNESIUM OXIDE 400 MG TABLET PO SCH ×2 (10:37→22:19)
[2017-03-21] MEDS: CARVEDILOL 3.125 MG TABLET PO SCH ×2 (10:42→22:19)
[2017-03-22] MEDS: CEFTAROLINE 600 MG in SODIUM CHLORIDE 0.9% 100 ML IV SCH ×3 (05:28→22:02)
[2017-03-22 06:45] LABS: Calcium 7.9 MG/DL (8.5-10.1); Osmolality,Calculated 283.1 MOS/KG (273-304); Potassium 4.5 MMOL/L (3.5-5.1)
[2017-03-22] MEDS: INSULIN REGULAR 100 UNIT/ML SUBCUT SCH ×4 (08:43→21:32)
[2017-03-22] MEDS: sitaGLIPtin 100 MG TABLET PO SCH (08:45)
[2017-03-22] MEDS: SKIN HEALING OINT (AQUAPHOR) 50 GM TUBE TOP SCH (08:45)
[2017-03-22] MEDS: SODIUM HYPOCHLORITE 0.25% IRRIG 473 ML BOTTLE TOP SCH (08:45)
[2017-03-22] MEDS: PANTOPRAZOLE 40 MG TABLET PO SCH (08:45)
[2017-03-22] MEDS: MAGNESIUM OXIDE 400 MG TABLET PO SCH ×2 (08:45→22:03)
[2017-03-22] MEDS: CARVEDILOL 3.125 MG TABLET PO SCH ×2 (08:45→22:03)
[2017-03-22] MEDS: ASPIRIN EC 81 MG TABLET PO SCH (08:45)
[2017-03-22] MEDS: amLODIPine 5 MG TABLET PO SCH (08:45)
[2017-03-22] MEDS: CLOTRIMAZOLE 1% CREAM 15 GM TUBE TOP SCH ×2 (08:46→22:04)
[2017-03-23] MEDS: CEFTAROLINE 600 MG in SODIUM CHLORIDE 0.9% 100 ML IV SCH ×3 (05:18→21:08)
[2017-03-23] MEDS: INSULIN REGULAR 100 UNIT/ML SUBCUT SCH ×4 (08:27→21:08)
[2017-03-23] MEDS: PANTOPRAZOLE 40 MG TABLET PO SCH (10:05)
[2017-03-23] MEDS: MAGNESIUM OXIDE 400 MG TABLET PO SCH ×2 (10:05→21:07)
[2017-03-23] MEDS: amLODIPine 5 MG TABLET PO SCH (10:05)
[2017-03-23] MEDS: ASPIRIN EC 81 MG TABLET PO SCH (10:05)
[2017-03-23] MEDS: sitaGLIPtin 100 MG TABLET PO SCH (10:06)
[2017-03-23] MEDS: CARVEDILOL 3.125 MG TABLET PO SCH ×2 (10:06→21:08)
[2017-03-23] MEDS: SODIUM HYPOCHLORITE 0.25% IRRIG 473 ML BOTTLE TOP SCH (11:10)
[2017-03-23] MEDS: CLOTRIMAZOLE 1% CREAM 15 GM TUBE TOP SCH ×2 (11:47→21:09)
[2017-03-23] MEDS: SKIN HEALING OINT (AQUAPHOR) 50 GM TUBE TOP SCH (11:47)
[2017-03-24] MEDS: CEFTAROLINE 600 MG in SODIUM CHLORIDE 0.9% 100 ML IV SCH ×3 (05:01→21:02)
[2017-03-24] MEDS: INSULIN REGULAR 100 UNIT/ML SUBCUT SCH ×4 (08:09→20:59)
[2017-03-24] MEDS: sitaGLIPtin 100 MG TABLET PO SCH (09:08)
[2017-03-24] MEDS: CARVEDILOL 3.125 MG TABLET PO SCH ×2 (09:08→21:03)
[2017-03-24] MEDS: PANTOPRAZOLE 40 MG TABLET PO SCH (09:08)
[2017-03-24] MEDS: ASPIRIN EC 81 MG TABLET PO SCH (09:08)
[2017-03-24] MEDS: amLODIPine 5 MG TABLET PO SCH (09:08)
[2017-03-24] MEDS: MAGNESIUM OXIDE 400 MG TABLET PO SCH ×2 (09:08→21:02)
[2017-03-24] MEDS: CLOTRIMAZOLE 1% CREAM 15 GM TUBE TOP SCH ×2 (09:13→22:23)
[2017-03-24] MEDS: SKIN HEALING OINT (AQUAPHOR) 50 GM TUBE TOP SCH (09:13)
[2017-03-24] MEDS: SODIUM HYPOCHLORITE 0.25% IRRIG 473 ML BOTTLE TOP SCH (13:34)
[2017-03-25] MEDS: CEFTAROLINE 600 MG in SODIUM CHLORIDE 0.9% 100 ML IV SCH ×3 (05:55→21:47)
[2017-03-25] MEDS: INSULIN REGULAR 100 UNIT/ML SUBCUT SCH ×4 (08:23→21:45)
[2017-03-25] MEDS: sitaGLIPtin 100 MG TABLET PO SCH (09:41)
[2017-03-25] MEDS: ASPIRIN EC 81 MG TABLET PO SCH (09:41)
[2017-03-25] MEDS: MAGNESIUM OXIDE 400 MG TABLET PO SCH ×2 (09:41→21:48)
[2017-03-25] MEDS: PANTOPRAZOLE 40 MG TABLET PO SCH (09:41)
[2017-03-25] MEDS: CARVEDILOL 3.125 MG TABLET PO SCH ×2 (09:41→21:45)
[2017-03-25] MEDS: amLODIPine 5 MG TABLET PO SCH (09:41)
[2017-03-25] MEDS: SKIN HEALING OINT (AQUAPHOR) 50 GM TUBE TOP SCH (09:41)
[2017-03-25] MEDS: SODIUM HYPOCHLORITE 0.25% IRRIG 473 ML BOTTLE TOP SCH (09:41)
[2017-03-25] MEDS: CLOTRIMAZOLE 1% CREAM 15 GM TUBE TOP SCH ×2 (14:01→21:48)
[2017-03-26] MEDS: CEFTAROLINE 600 MG in SODIUM CHLORIDE 0.9% 100 ML IV SCH ×2 (04:38→13:34)
[2017-03-26] MEDS: INSULIN REGULAR 100 UNIT/ML SUBCUT SCH ×3 (08:35→16:30)
[2017-03-26] MEDS: CLOTRIMAZOLE 1% CREAM 15 GM TUBE TOP SCH (09:00)
[2017-03-26] MEDS: ASPIRIN EC 81 MG TABLET PO SCH (10:45)
[2017-03-26] MEDS: PANTOPRAZOLE 40 MG TABLET PO SCH (10:45)
[2017-03-26] MEDS: amLODIPine 5 MG TABLET PO SCH (10:45)
[2017-03-26] MEDS: CARVEDILOL 3.125 MG TABLET PO SCH (10:45)
[2017-03-26] MEDS: MAGNESIUM OXIDE 400 MG TABLET PO SCH (10:45)
[2017-03-26] MEDS: sitaGLIPtin 100 MG TABLET PO SCH (10:45)
[2017-03-26] MEDS: SODIUM HYPOCHLORITE 0.25% IRRIG 473 ML BOTTLE TOP SCH (10:46)
[2017-03-26] MEDS: SKIN HEALING OINT (AQUAPHOR) 50 GM TUBE TOP SCH (10:46)
[2017-03-26 16:26] VITALS: BP 122/70
== END 2017-03-26 18:05 | disposition hospice, home (50) | DRG 872 ==
LOC: EDUNIT# → N.ED 16:52 → SUATTDRO 17:50 → N.EDINP 17:50 → N.2E 19:13 → N.EDINP 19:13
PROVIDERS: ADMIT Internal Medicine; ATTEND Hospitalist

== ENCOUNTER 2017-06-05 06:16 | Inpatient (IN) ==
[~2017-06-05 06:16] MED LIST: ceFAZolin 1,000 MG in SYRINGE 1 EACH IV ONE
[2017-06-05] MEDS: LACTATED RINGERS 1,000 ML IV SCH ×2 (06:45→08:05)
[2017-06-05] MEDS ORDERED: ceFAZolin 1,000 MG VIAL ONE (07:01)
[2017-06-05] MEDS ORDERED: PROPOFOL 200 MG/20 ML VIAL IV ONE (08:16)
[2017-06-05] MEDS ORDERED: ONDANSETRON 4 MG/2 ML VIAL ONE (08:17)
[2017-06-05] MEDS ORDERED: LACTATED RINGERS 1,000 ML IV ONE (08:17)
[2017-06-05] MEDS ORDERED: MIDAZOLAM 2 MG/2 ML VIAL ONE (08:17)
[2017-06-05] MEDS ORDERED: SEVOFLURANE 1 UNIT/15 MINUTE INH ONE (08:17)
[2017-06-05] MEDS ORDERED: fentaNYL 100 MCG/2 ML VIAL ONE (08:17)
[2017-06-05] MEDS ORDERED: LOPERAMIDE 2 MG CAPSULE PO PRN (08:50)
[2017-06-05] MEDS ORDERED: GLUCAGON 1 MG VIAL IM PRN (08:50)
[2017-06-05] MEDS ORDERED: MORPHINE 2 MG/1 ML SYRINGE IV PRN (08:50)
[2017-06-05] MEDS ORDERED: LACTATED RINGERS 1,000 ML IV SCH (08:50)
[2017-06-05] MEDS ORDERED: DOCUSATE SODIUM 100 MG CAPSULE PO PRN (08:50)
[2017-06-05] MEDS ORDERED: DEXTROSE 50% 25 GM/50 ML VIAL IV PRN (08:50)
[2017-06-05] MEDS ORDERED: PROMETHAZINE 25 MG/1 ML VIAL IM PRN (08:50)
[2017-06-05] MEDS ORDERED: ONDANSETRON 4 MG/2 ML VIAL IV PRN (08:50)
[2017-06-05 09:16] LABS: Calcium 7.5 MG/DL (8.5-10.1); Potassium 4.5 MMOL/L (3.5-5.1)
[2017-06-05 09:18] LABS: Basophils % 0.7 % (0.0-0.8); Eosinophils # 0.7 10*3/uL (0.0-0.87); Eosinophils % 12.7 % (0.00-10.9); Hematocrit 28.1 VOL% (42.0-52.0); Hemoglobin 9.4 GM/DL (14.0-18.0); Immature Granulocytes % 1.1 %; Immature Granulocytes Absolute 0.06 #; Lymphocytes # 1.4 10*3/uL (1.4-4.0); Lymphocytes % 25.2 % (21.2-54.2); Mean Corpuscular HGB Conc 33.5 GM/DL (32-36); Mean Corpuscular Hemoglobin 30 PG (27-34); Mean Corpuscular Volume 90.4 FL (87-102); Mean Platelet Volume 14.3 FL (9.6-12.0); Monocytes # 0.5 10*3/uL (0.11-0.8); Neutrophils # 2.9 10*3/uL (1.4-7.4); Neutrophils % 52.3 % (38.7-73.9); Red Blood Count 3.11 MC/CUMM (3.8-5.5); White Blood Count 5.6 T/CUMM (4-12)
[2017-06-05] MEDS: amLODIPine 5 MG TABLET PO SCH (09:21)
[2017-06-05] MEDS: ASPIRIN EC 81 MG TABLET PO SCH (09:21)
[2017-06-05 09:22] LABS: Platelet Count 70 T/CUMM (130-400)
[2017-06-05 09:45] LABS: Eosinophils 14 % (0-10); Giant Platelets Few; Hypochromasia 1+; Lymphocytes 17 % (20-55); Microcytosis Slight; Platelet Estimate Decreased; Segmented Neutrophils 57 % (50-85); Total Cells Counted 100
[2017-06-05] MEDS ORDERED: SODIUM CHLORIDE 0.9% 2,000 ML IV ONE (10:06)
[2017-06-05] MEDS: ACETYLCYSTEINE 600 MG CAPSULE PO SCH ×2 (10:26→21:00)
[2017-06-05] MEDS ORDERED: PHENYLEPHRINE 1 MG/10 ML SYRINGE IV ONE (11:54)
[2017-06-05] MEDS ORDERED: GLYCOPYRROLATE 0.4 MG/2 ML VIAL ONE (11:54)
[2017-06-05] MEDS: INSULIN REGULAR 100 UNIT/ML SUBCUT SCH ×3 (13:19→21:00)
[2017-06-05] MEDS: SODIUM CHLORIDE 0.9% 1,000 ML IV SCH ×2 (13:19→23:30)
[2017-06-05] MEDS: CEFTAROLINE 600 MG in SODIUM CHLORIDE 0.9% 100 ML IV SCH (14:58)
[2017-06-05] MEDS: CARVEDILOL 3.125 MG TABLET PO SCH (17:43)
[2017-06-05] MEDS: CLOTRIMAZOLE 1% CREAM 15 GM TUBE TOP SCH (21:01)
[2017-06-06] MEDS ORDERED: ENOXAPARIN 40 MG/0.4 ML SYRINGE SUBCUT SCH (02:00)
[2017-06-06] MEDS: CEFTAROLINE 600 MG in SODIUM CHLORIDE 0.9% 100 ML IV SCH ×2 (05:56→21:13)
[2017-06-06 06:27] LABS: Basophils % 0.7 % (0.0-0.8); Eosinophils # 0.7 10*3/uL (0.0-0.87); Eosinophils % 12.9 % (0.00-10.9); Hematocrit 24.5 VOL% (42.0-52.0); Hemoglobin 8.4 GM/DL (14.0-18.0); Immature Granulocytes % 0.6 %; Immature Granulocytes Absolute 0.03 #; Lymphocytes # 0.7 10*3/uL (1.4-4.0); Lymphocytes % 13.5 % (21.2-54.2); Mean Corpuscular HGB Conc 34.3 GM/DL (32-36); Mean Corpuscular Hemoglobin 31 PG (27-34); Mean Corpuscular Volume 89.1 FL (87-102); Mean Platelet Volume 14.4 FL (9.6-12.0); Monocytes # 0.4 10*3/uL (0.11-0.8); Neutrophils # 3.5 10*3/uL (1.4-7.4); Neutrophils % 65.3 % (38.7-73.9); Platelet Count 53 T/CUMM (130-400); Red Blood Count 2.75 MC/CUMM (3.8-5.5); Red Cell Distribution Width 14.6 % (9.3-17.3); White Blood Count 5.4 T/CUMM (4-12)
[2017-06-06 06:58] LABS: Eosinophils 8 % (0-10); Lymphocytes 9 % (20-55); Platelet Estimate Decreased; Segmented Neutrophils 77 % (50-85); Total Cells Counted 100
[2017-06-06 06:59] LABS: Giant Platelets Few; Hypochromasia 1+; Microcytosis Slight
[2017-06-06 07:06] LABS: Calcium 6.9 MG/DL (8.5-10.1); Osmolality,Calculated 284.4 MOS/KG (273-304); Potassium 3.9 MMOL/L (3.5-5.1)
[2017-06-06] MEDS: INSULIN REGULAR 100 UNIT/ML SUBCUT SCH ×4 (07:39→21:05)
[2017-06-06] MEDS: CARVEDILOL 3.125 MG TABLET PO SCH ×2 (09:36→16:43)
[2017-06-06] MEDS: ASPIRIN EC 81 MG TABLET PO SCH (09:37)
[2017-06-06] MEDS: amLODIPine 5 MG TABLET PO SCH (09:37)
[2017-06-06] MEDS: ACETYLCYSTEINE 600 MG CAPSULE PO SCH ×2 (09:37→21:05)
[2017-06-06] MEDS ORDERED: BUPIVACAINE MPF 0.25% /EPI 30 ML VIAL ONE (10:46)
[2017-06-06] MEDS ORDERED: LIDOCAINE 1%/EPI INJ 20 ML VIAL ONE (10:46)
[2017-06-06] MEDS ORDERED: SEVOFLURANE 1 UNIT/15 MINUTE INH ONE (11:48)
[2017-06-06] MEDS ORDERED: PROPOFOL 200 MG/20 ML VIAL IV ONE (11:48)
[2017-06-06] MEDS ORDERED: fentaNYL 100 MCG/2 ML VIAL ONE (11:48)
[2017-06-06] MEDS ORDERED: PHENYLEPHRINE 1 MG/10 ML SYRINGE IV ONE (11:49)
[2017-06-06] MEDS ORDERED: ePHEDrine 50 MG/ML AMP ONE (11:49)
[2017-06-06] MEDS ORDERED: MIDAZOLAM 2 MG/2 ML VIAL ONE (11:49)
[2017-06-06] MEDS: CLOTRIMAZOLE 1% CREAM 15 GM TUBE TOP SCH ×2 (13:34→21:06)
[2017-06-06] MEDS: SKIN HEALING OINT (AQUAPHOR) 50 GM TUBE TOP SCH (13:34)
[2017-06-06] MEDS: SODIUM CHLORIDE 0.9% 1,000 ML IV SCH (21:12)
[2017-06-07] MEDS: CEFTAROLINE 600 MG in SODIUM CHLORIDE 0.9% 100 ML IV SCH ×2 (05:12→20:42)
[2017-06-07] MEDS: SODIUM CHLORIDE 0.9% 1,000 ML IV SCH ×3 (05:12→23:31)
[2017-06-07 06:42] LABS: Basophils % 0.4 % (0.0-0.8); Eosinophils # 0.7 10*3/uL (0.0-0.87); Eosinophils % 13.4 % (0.00-10.9); Hematocrit 25.5 VOL% (42.0-52.0); Hemoglobin 8.4 GM/DL (14.0-18.0); Immature Granulocytes % 0.5 %; Immature Granulocytes Absolute 0.03 #; Lymphocytes # 0.7 10*3/uL (1.4-4.0); Lymphocytes % 12.8 % (21.2-54.2); Mean Corpuscular HGB Conc 32.9 GM/DL (32-36); Mean Corpuscular Hemoglobin 30 PG (27-34); Mean Corpuscular Volume 90.7 FL (87-102); Mean Platelet Volume 13.5 FL (9.6-12.0); Monocytes # 0.4 10*3/uL (0.11-0.8); Monocytes % 7.6 % (1.7-12.7); Neutrophils # 3.6 10*3/uL (1.4-7.4); Neutrophils % 65.3 % (38.7-73.9); Platelet Count 55 T/CUMM (130-400); Red Blood Count 2.81 MC/CUMM (3.8-5.5); Red Cell Distribution Width 14.4 % (9.3-17.3); White Blood Count 5.5 T/CUMM (4-12)
[2017-06-07] MEDS ORDERED: MORPHINE 10 MG/1 ML VIAL IV PRN (07:00)
[2017-06-07 07:05] LABS: Calcium 7.2 MG/DL (8.5-10.1); Osmolality,Calculated 282.3 MOS/KG (273-304); Potassium 3.9 MMOL/L (3.5-5.1)
[2017-06-07 07:13] LABS: Band Neutrophils 1 % (0-10); Eosinophils 12 % (0-10); Giant Platelets Few; Hypochromasia 1+; Lymphocytes 10 % (20-55); Microcytosis Slight; Ovalocytes Slight; Platelet Estimate Decreased; Segmented Neutrophils 70 % (50-85); Total Cells Counted 100
[2017-06-07] MEDS: INSULIN REGULAR 100 UNIT/ML SUBCUT SCH ×4 (08:13→20:57)
[2017-06-07] MEDS: ASPIRIN EC 81 MG TABLET PO SCH (09:04)
[2017-06-07] MEDS: CLOTRIMAZOLE 1% CREAM 15 GM TUBE TOP SCH ×2 (09:04→20:40)
[2017-06-07] MEDS: amLODIPine 5 MG TABLET PO SCH (09:04)
[2017-06-07] MEDS: SKIN HEALING OINT (AQUAPHOR) 50 GM TUBE TOP SCH (09:04)
[2017-06-07] MEDS: ACETYLCYSTEINE 600 MG CAPSULE PO SCH ×2 (09:04→20:39)
[2017-06-07] MEDS: CARVEDILOL 3.125 MG TABLET PO SCH ×2 (09:04→16:25)
[2017-06-08] MEDS: amLODIPine 5 MG TABLET PO SCH (09:09)
[2017-06-08] MEDS: ASPIRIN EC 81 MG TABLET PO SCH (09:10)
[2017-06-08] MEDS: ACETYLCYSTEINE 600 MG CAPSULE PO SCH (09:10)
[2017-06-08] MEDS: CARVEDILOL 3.125 MG TABLET PO SCH (09:11)
[2017-06-08] MEDS: CEFTAROLINE 600 MG in SODIUM CHLORIDE 0.9% 100 ML IV SCH (09:11)
[2017-06-08] MEDS: CLOTRIMAZOLE 1% CREAM 15 GM TUBE TOP SCH (09:16)
[2017-06-08] MEDS: SKIN HEALING OINT (AQUAPHOR) 50 GM TUBE TOP SCH (09:16)
[2017-06-08] MEDS: INSULIN REGULAR 100 UNIT/ML SUBCUT SCH ×2 (09:17→13:31)
[2017-06-08 11:56] VITALS: BP 155/86
[2017-06-08] MEDS ORDERED: DOXYCYCLINE HYCLATE 100 MG CAPSULE PO SCH (21:00)
== END 2017-06-08 16:45 | disposition home or self-care (01) | DRG 167 ==
LOC: N.OR 06:16 → N.SDSINP 06:21 → N.2E 07:58
PROVIDERS: ADMIT Surgery; ATTEND Surgery